=== PATIENT | male | born 1940 | race Caucasian/White ===

== ENCOUNTER 2017-07-04 06:52 | Day surgery (SDC) | payer MEDICARE, BC ==
[2017-06-30 15:56] VITALS: BMI 25.4
[~2017-07-04 06:52] MED LIST: LACTATED RINGERS 1,000 ML IV SCH
[2017-07-04] MEDS ORDERED: LACTATED RINGERS 1,000 ML IV ONE (07:04)
[2017-07-04 07:26] VITALS: RESP 16; TEMP 98.2
[2017-07-04 07:46] LABS: Glucose,Whole Blood 151 mg/dL (75-99)
[2017-07-04] MEDS ORDERED: PROPOFOL 10 MG/ML 20 ML VIAL IV ONE (07:54)
--- NOTE | 2017-07-04 07:56 | P.GSHP ---
History of Present Illness H&P Date: 07/04/17 Chief Complaint: Screening colonoscopy This is a 76-year-old male who presents today for colonoscopy. He denies any significant GI plaints. His last colonoscopy was approximately 12 years ago.. Past Medical History Past Medical History: Coronary Artery Disease (CAD), CVA/TIA, Hyperlipidemia, Hypertension Additional Past Medical History / Comment(s): TIA 2014. HYPOGLYCEMIC. TRACE OF BLOOD ON STOOL SAMPLE RECENTLY. History of Any Multi-Drug Resistant Organisms: None Reported Past Surgical History: Coronary Bypass/CABG, Tonsillectomy Additional Past Surgical History / Comment(s): QUAD CABG 2002. COLONOSCOPY. Past Anesthesia/Blood Transfusion Reactions: No Reported Reaction Smoking Status: Never smoker - Past Family History Sister(s) Family Medical History: Cancer Additional Family Medical History / Comment(s): LUNG, BONE CA Medications and Allergies Home Medications Medication Instructions Recorded Confirmed Type Aspirin [Adult Low Dose Aspirin EC] 81 mg PO DAILY 06/30/17 06/30/17 History Atorvastatin [Lipitor] 10 mg PO 1700 06/30/17 07/04/17 History Cholecalciferol (Vitamin D3) 2,000 unit PO DAILY 06/30/17 07/04/17 History [Vitamin D3] Cyanocobalamin (Vitamin B-12) 2,000 mcg PO DAILY 06/30/17 07/04/17 History [Vitamin B-12] Metoprolol Tartrate [Lopressor] 25 mg PO 1700 06/30/17 07/04/17 History Allergies Allergy/AdvReac Type Severity Reaction Status Date / Time Penicillins Allergy Unknown Verified 07/04/17 07:08 Surgical - Exam Vital Signs Temp Pulse Resp BP Pulse Ox 98.2 F 57 L 16 161/86 95 07/04/17 07:25 07/04/17 07:25 07/04/17 07:25 07/04/17 07:25 07/04/17 07:25 - General well developed, no distress - Eyes PERRL - ENT normal pinna - Neck no masses - Respiratory normal expansion - Cardiovascular Rhythm: regular - Abdomen Abdomen: soft, non tender Results - Labs Abnormal Lab Results - Last 24 Hours (Table) 07/04/17 Range/Units 07:41 POC Glucose (mg/dL) 151 H (75-99) mg/dL Assessment and Plan Plan: We'll perform screening colonoscopy.
--- NOTE | 2017-07-04 08:18 | P.OP ---
Date of Procedure: 07/04/17 Preoperative Diagnosis: Screening colonoscopy Postoperative Diagnosis: Diverticulosis Procedure(s) Performed: Colonoscopy Anesthesia: MAC Surgeon: Jason Walker Pathology: none sent Condition: stable Disposition: PACU Description of Procedure: The patient's placed on the endoscopy table in the lateral position. He received IV sedation. Digital rectal exam was performed which revealed no abnormalities. The flexible colonoscope was then placed through the anus and passed throughout the entire colon. The ileocecal valve was visualized. Cecum , ascending and transverse colon appeared normal. Scope summer back in the descending; there appeared to be mild diverticulosis. Scope was then brought back the rectum this appeared normal. Scope was withdrawn for patient.
[2017-07-04 08:57] VITALS: BP 173/60; PULSE 48
== END 2017-07-04 09:08 | disposition home or self-care (01) ==
LOC: ORWHC2ENDO 06:52
PROVIDERS: ATTEND Surgery
DX: Z12.11 Encounter for screening for malignant neoplasm of colon (principal); K57.30 Diverticulosis of large intestine without perforation or abscess without bleeding; I25.10 Atherosclerotic heart disease of native coronary artery without angina pectoris; I10 Essential (primary) hypertension; E78.5 Hyperlipidemia, unspecified; Z88.0 Allergy status to penicillin; Z79.82 Long term (current) use of aspirin; Z79.899 Other long term (current) drug therapy; Z86.73 Personal history of transient ischemic attack (TIA), and cerebral infarction without residual deficits; Z80.1 Family history of malignant neoplasm of trachea, bronchus and lung; Z80.8 Family history of malignant neoplasm of other organs or systems; Z95.1 Presence of aortocoronary bypass graft
CPT/HCPCS: J2704; G0121

== ENCOUNTER → 2017-09-19 | Day surgery (SDC) | payer MEDICARE, BC ==
[2017-09-15 14:55] VITALS: BMI 24.4
[~2017-09-19] MED LIST changes: +IV FLUID CONTINUATION 1,000 ML IV ONE; +PROPOFOL 10 MG/ML 20 ML VIAL IV ONE
[2017-09-19 12:01] LABS: Glucose,Whole Blood 118 mg/dL (75-99)
[2017-09-19 12:05] VITALS: TEMP 97.1
--- NOTE | 2017-09-19 12:52 | P.PCN ---
Date of Procedure: 09/19/17 Procedure(s) Performed: Procedure: Esophagogastroduodenoscopy and biopsy. Preoperative diagnosis: Iron deficiency anemia and Hemoccult-positive stools. Postoperative diagnosis: 1. Oconnor's esophagus and hiatal hernia with no obvious esophagitis. 2. Antral gastritis. 3. Multiple biopsies obtained from the duodenum, antrum, esophagus both proximal and distal to the GE junction. Preparation: HalfLytely prep. Sedation: Was provided by anesthesia. Brief clinical history: The patient is a 76-year-old male who was evaluated in the office regarding anemia and Hemoccult-positive stools. He had colonoscopy in July that showed diverticulosis. No overt bleeding or specific upper GI complaints. Procedure: With the patient on his left lateral decubitus position and after informed consent and adequate sedation, I passed the Olympus-GIF 160 video upper endoscope through the cricopharyngeus down the esophagus. The ngozi-GE junction was around 31 cm from the incisors and was irregular. The tubular esophagus continued for another 5 cm defining a segment of Oconnor's esophagus. The endoscope was then passed through a moderately sized hiatal hernia into the rest of the stomach which was insufflated with air and inspected in detail including the retroflex view in the cardia. There was mottling and erythema and some fading erosions in the antrum consistent with antral gastritis but no ulcers or bleeding. Pyloric channel, duodenal bulb, post bulbar area and descending duodenum appeared within normal limits. I obtained multiple biopsies from the duodenum, antrum and esophagus both proximal and distal to the GE junction before the endoscope was withdrawn. The patient tolerated the procedure well. Plan: Will await pathology results. Further plans can be made based on his course and biopsy results. We will keep you updated on his progress.
[2017-09-19 13:07] VITALS: BP 179/79; PULSE 56; RESP 18
== END | disposition home or self-care (01) ==
LOC: ORWHC2ENDO 10:12
DX: K22.70 Barrett's esophagus without dysplasia (principal); K29.50 Unspecified chronic gastritis without bleeding; K20.9 Esophagitis, unspecified; K44.9 Diaphragmatic hernia without obstruction or gangrene; D50.9 Iron deficiency anemia, unspecified; I10 Essential (primary) hypertension; E78.5 Hyperlipidemia, unspecified; I25.10 Atherosclerotic heart disease of native coronary artery without angina pectoris; Z88.0 Allergy status to penicillin; Z79.82 Long term (current) use of aspirin; Z79.899 Other long term (current) drug therapy; Z86.73 Personal history of transient ischemic attack (TIA), and cerebral infarction without residual deficits; Z95.1 Presence of aortocoronary bypass graft
CPT/HCPCS: 43239; J2704; 88305; 88342

== ENCOUNTER 2018-06-12 15:51 | Inpatient (IN) | payer MEDICARE, BC ==
[2018-06-12] MEDS ORDERED: SODIUM CHLORIDE 0.9% 500 ML IV STA (15:54)
--- NOTE | 2018-06-12 15:59 | ED ---
General Adult HPI - General Source: RN notes reviewed <Vicente Glover - Last Filed: 06/12/18 17:03> <Binu Sanabria - Last Filed: 06/12/18 18:48> - General Stated complaint: stroke Time Seen by Provider: 06/12/18 15:51 - History of Present Illness Initial comments: This is a 77-year-old male who went out to get the mail between 11 to 11:30. Patient was found down about half an hour prior to arrival. Patient was unresponsive initially and definitely have some left-sided facial droop and left -sided weakness according to the neighbor. EMS verified his weakness but thought he was more responsive to them that he was to the neighbor. Patient is able to speak intelligibly is. Patient denies any chest pain or palpitations patient denies any difficulty breathing. Patient denies a headache. There are no signs of trauma per EMS. Patient denies any fever or chills. (Vicente Glover) - Related Data Home Medications Medication Instructions Recorded Confirmed Aspirin [Adult Low Dose Aspirin EC] 81 mg PO DAILY 06/30/17 06/12/18 Atorvastatin [Lipitor] 10 mg PO DAILY 06/30/17 06/12/18 Cholecalciferol (Vitamin D3) 2,000 unit PO DAILY 06/30/17 06/12/18 [Vitamin D3] Cyanocobalamin (Vitamin B-12) 2,000 mcg PO DAILY 06/30/17 06/12/18 [Vitamin B-12] Metoprolol Tartrate [Lopressor] 25 mg PO DAILY 06/12/18 06/12/18 Omeprazole [PriLOSEC] 20 mg PO AC-BID 06/12/18 06/12/18 Allergies Allergy/AdvReac Type Severity Reaction Status Date / Time Penicillins Allergy Unknown Verified 06/12/18 16:29 Review of Systems ROS Other: All systems not noted in ROS Statement are negative. <Vicente Glover - Last Filed: 06/12/18 17:03> ROS Other: All systems not noted in ROS Statement are negative. <Binu Sanabria - Last Filed: 06/12/18 18:48> ROS Statement: Those systems with pertinent positive or pertinent negative responses have been documented in the HPI. Past Medical History Past Medical History: Coronary Artery Disease (CAD), CVA/TIA, Hyperlipidemia, Hypertension Additional Past Medical History / Comment(s): TIA 2014. HYPOGLYCEMIC. TRACE OF BLOOD IN STOOL RECENTLY History of Any Multi-Drug Resistant Organisms: None Reported Past Surgical History: Coronary Bypass/CABG, Tonsillectomy Additional Past Surgical History / Comment(s): QUAD CABG 2002. COLONOSCOPY in 2016-wnl per pt. Past Anesthesia/Blood Transfusion Reactions: No Reported Reaction Smoking Status: Never smoker - Past Family History Sister(s) Family Medical History: Cancer Additional Family Medical History / Comment(s): LUNG, BONE CA <Vicente Glover - Last Filed: 06/12/18 17:03> General Exam <Vicente Glover - Last Filed: 06/12/18 17:03> <Binu Sanabria - Last Filed: 06/12/18 18:48> - General Exam Comments Initial Comments: GENERAL: Patient is well-developed and well-nourished. Patient is nontoxic and well- hydrated and is in moderate distress. ENT: Neck is soft and supple. No significant lymphadenopathy is noted. Oropharynx is clear. Moist mucous membranes. EYES: The sclera were anicteric and conjunctiva were pink and moist. Eyelids were unremarkable. PULMONARY: Unlabored respirations. Good breath sounds bilaterally. No audible rales rhonchi or wheezing was noted. CARDIOVASCULAR: There is a regular rate and rhythm without any murmurs gallops or rubs. ABDOMEN: Soft and nontender with normal bowel sounds. No palpable organomegaly was noted. There is no palpable pulsatile mass. SKIN: Skin is clear with no lesions or rashes and otherwise unremarkable. NEUROLOGIC: Patient is alert and oriented x3. Patient's left I does not fully move laterally. Patient has left-sided facial droop left arm weakness and left leg weakness. I'm unable to test cerebellar function because he cannot lift his arm or leg to do so MUSCULOSKELETAL: Normal extremities with adequate strength and full range of motion. No lower extremity swelling or edema. No calf tenderness. LYMPHATICS: No significant lymphadenopathy is noted PSYCHIATRIC: Difficult to assess at this time (Vicente Glover) Course <Vicente Glover - Last Filed: 06/12/18 17:03> <Binu Sanabria - Last Filed: 06/12/18 18:48> Vital Signs 06/12/18 06/12/18 06/12/18 16:00 16:15 16:29 Temperature 97.3 F L Pulse Rate 63 48 L 58 L Respiratory 18 18 18 Rate Blood Pressure 120/95 177/76 207/92 O2 Sat by Pulse 98 100 97 Oximetry 06/12/18 06/12/18 06/12/18 16:45 17:00 17:30 Temperature Pulse Rate 64 60 64 Respiratory 18 18 18 Rate Blood Pressure 199/88 199/88 195/91 O2 Sat by Pulse 98 100 100 Oximetry 06/12/18 06/12/18 17:55 18:43 Temperature Pulse Rate 50 L 58 L Respiratory 18 18 Rate Blood Pressure 189/84 189/86 O2 Sat by Pulse 97 100 Oximetry - Reevaluation(s) Reevaluation #1: 06/12/18 18:46 I did discuss findings with the patient and family members patient be admitted for inpatient evaluation at this facility. The patient has been evaluated by the interventional neurologist, Dr. Ann. The patient is not a candidate for intervention at this time (Binu Sanabria) Medical Decision Making - Lab Data Result diagrams: 06/12/18 15:58 06/12/18 15:58 <Vicente Glover - Last Filed: 06/12/18 17:03> - Lab Data Result diagrams: 06/12/18 15:58 06/12/18 15:58 <Binu Sanabria - Last Filed: 06/12/18 18:48> - Medical Decision Making EKG shows sinus bradycardia with occasional PAC at 50 bpm MS interval 156 dresses 88 QT interval 472 QTC is 463. Patient's EKG shows no ST segment elevation or depression or T wave abnormalities are noted. Dr. Sanabria be taking over the care of this patient at 5 PM (Vicente Glover) - Lab Data Lab Results 06/12/18 06/12/18 06/12/18 Range/Units 15:54 15:58 15:58 WBC 5.7 (3.8-10.6) k/uL RBC 3.63 L (4.30-5.90) m/uL Hgb 11.2 L (13.0-17.5) gm/dL Hct 34.3 L (39.0-53.0) % MCV 94.4 (80.0-100.0) fL MCH 31.0 (25.0-35.0) pg MCHC 32.8 (31.0-37.0) g/dL RDW 13.5 (11.5-15.5) % Plt Count 130 L (150-450) k/uL Neutrophils % 78 % Lymphocytes % 15 % Monocytes % 4 % Eosinophils % 1 % Basophils % 1 % Neutrophils # 4.4 (1.3-7.7) k/uL Lymphocytes # 0.8 L (1.0-4.8) k/uL Monocytes # 0.2 (0-1.0) k/uL Eosinophils # 0.1 (0-0.7) k/uL Basophils # 0.0 (0-0.2) k/uL PT (9.0-12.0) sec INR (<1.2) APTT (22.0-30.0) sec Sodium 141 (137-145) mmol/L Potassium 4.9 (3.5-5.1) mmol/L Chloride 107 (98-107) mmol/L Carbon Dioxide 24 (22-30) mmol/L Anion Gap 10 mmol/L BUN 27 H (9-20) mg/dL Creatinine 1.47 H (0.66-1.25) mg/dL Est GFR (CKD-EPI)AfAm 53 (>60 ml/min/1.73 sqM) Est GFR (CKD-EPI)NonAf 45 (>60 ml/min/1.73 sqM) Glucose 160 H (74-99) mg/dL POC Glucose (mg/dL) 162 H (75-99) mg/dL POC Glu Drywall Taper Ninfa Wesley Calcium 8.9 (8.4-10.2) mg/dL Total Bilirubin 0.6 (0.2-1.3) mg/dL AST 42 (17-59) U/L ALT 35 (21-72) U/L Alkaline Phosphatase 137 H (38-126) U/L Total Creatine Kinase (55-170) U/L CK-MB (CK-2) (0.0-2.4) ng/mL CK-MB (CK-2) Rel Index Troponin I (0.000-0.034) ng/mL Total Protein 6.8 (6.3-8.2) g/dL Albumin 4.0 (3.5-5.0) g/dL 06/12/18 06/12/18 Range/Units 15:58 15:58 WBC (3.8-10.6) k/uL RBC (4.30-5.90) m/uL Hgb (13.0-17.5) gm/dL Hct (39.0-53.0) % MCV (80.0-100.0) fL MCH (25.0-35.0) pg MCHC (31.0-37.0) g/dL RDW (11.5-15.5) % Plt Count (150-450) k/uL Neutrophils % % Lymphocytes % % Monocytes % % Eosinophils % % Basophils % % Neutrophils # (1.3-7.7) k/uL Lymphocytes # (1.0-4.8) k/uL Monocytes # (0-1.0) k/uL Eosinophils # (0-0.7) k/uL Basophils # (0-0.2) k/uL PT 10.1 (9.0-12.0) sec INR 1.0 (<1.2) APTT 18.6 L (22.0-30.0) sec Sodium (137-145) mmol/L Potassium (3.5-5.1) mmol/L Chloride (98-107) mmol/L Carbon Dioxide (22-30) mmol/L Anion Gap mmol/L BUN (9-20) mg/dL Creatinine (0.66-1.25) mg/dL Est GFR (CKD-EPI)AfAm (>60 ml/min/1.73 sqM) Est GFR (CKD-EPI)NonAf (>60 ml/min/1.73 sqM) Glucose (74-99) mg/dL POC Glucose (mg/dL) (75-99) mg/dL POC Glu Drywall Taper ID Calcium (8.4-10.2) mg/dL Total Bilirubin (0.2-1.3) mg/dL AST (17-59) U/L ALT (21-72) U/L Alkaline Phosphatase (38-126) U/L Total Creatine Kinase 428 H (55-170) U/L CK-MB (CK-2) 4.7 H (0.0-2.4) ng/mL CK-MB (CK-2) Rel Index 1.1 Troponin I <0.012 (0.000-0.034) ng/mL Total Protein (6.3-8.2) g/dL Albumin (3.5-5.0) g/dL Critical Care Time <Vicente Glover - Last Filed: 06/12/18 17:03> Critical Care Time: Yes <Binu Sanabria - Last Filed: 06/12/18 18:48> Critical Care Time: 31 minutes of critical care time which includes monitoring the patient after signout reevaluation. Discussed with patient and family members. Interventional neurology consultation. Review of old charting and labs. Discussion with the admitting physician admission orders and documentation of the above (Binu Sanabria) Disposition <Vicente Glover - Last Filed: 06/12/18 17:03> <Binu Sanabria - Last Filed: 06/12/18 18:48> Clinical Impression: Cerebrovascular accident Disposition: ADMITTED IP TO THIS [facility] Condition: Serious Referrals: Ata Lance MD [Primary Care Provider] - 1-2 days
[2018-06-12 16:00] LABS: Glucose,Whole Blood 162 mg/dL (75-99)
[2018-06-12 16:08] LABS: Basophils % (A) 1 %; Eosinophils # (A) 0.1 k/uL (0-0.7); Eosinophils % (A) 1 %; HCT 34.3 % (39.0-53.0); HGB 11.2 gm/dL (13.0-17.5); Lymphocytes # (A) 0.8 k/uL (1.0-4.8); Lymphocytes % (A) 15 %; MCHC 32.8 g/dL (31.0-37.0); MCV 94.4 fL (80.0-100.0); Mean Platelet Volume 7.8; Monocytes # (A) 0.2 k/uL (0-1.0); Monocytes % (A) 4 %; Neutrophils # (A) 4.4 k/uL (1.3-7.7); Neutrophils % (A) 78 %; Platelet Count 130 k/uL (150-450); RBC 3.63 m/uL (4.30-5.90); RDW 13.5 % (11.5-15.5); WBC 5.7 k/uL (3.8-10.6)
[2018-06-12 16:16] LABS: Prothrombin Time 10.1 sec (9.0-12.0)
[2018-06-12 16:17] LABS: Calcium 8.9 mg/dL (8.4-10.2); Potassium 4.9 mmol/L (3.5-5.1); Total Bilirubin 0.6 mg/dL (0.2-1.3); Total Protein 6.8 g/dL (6.3-8.2)
[2018-06-12 16:28] LABS: Creatine Kinase 428 U/L (55-170); Partial Thromboplastin Time 18.6 sec (22.0-30.0)
--- NOTE | 2018-06-12 16:39 | CT ---
EXAMINATION TYPE: CT brain wo con for TPA DATE OF EXAM: 06/12/2018 COMPARISON: 11/11/2013 HISTORY: CODE STROKE, VISION CHANGES CT DLP: 1203.44 mGycm Automated exposure control for dose reduction was used. FINDINGS: There is marked limitation exam due to motion. There is an area of low attenuation left frontal lobe age-indeterminate. Mild generalized degenerative change seen. Periventricular low attenuation is nonspecific. Due to mot ion artifact I could not exclude subtle hemorrhage. No obvious sizable intraparenchymal hemorrhage is identified. Intracranial atherosclerotic changes are seen. Due to the amount of motion artifact assessment for ac caitie ischemia is limited. Calvarium grossly intact. Case discussed with emergency room physician juvenal ryder limitation of the exam. IMPRESSION: THERE IS A DEGENERATIVE AND NONSPECIFIC WHITE MATTER CHANGES. AREA OF LOW ATTENUATION LEFT FRONTAL LO BE IS MOST AGE-INDETERMINATE, HOWEVER, WOULD FAVOR REMOTE ISCHEMIA. ASSESSMENT FOR ACUTE HEMORRHAGE I S LIMITED DUE TO MOTION ARTIFACT. NO SIZABLE OBVIOUS INTRAPARENCHYMAL HEMORRHAGE. RESULTS DISCUSSED W ITH ER PHYSICIAN INCLUDING LIMITATION OF EXAM.
[2018-06-12 16:41] LABS: Creatine Kinase MB 4.7 ng/mL (0.0-2.4); Troponin I <0.012 ng/mL (0.000-0.034)
--- NOTE | 2018-06-12 16:58 | CT ---
EXAMINATION TYPE: CT angio head neck DATE OF EXAM: 06/12/2018 HISTORY: CODE STROKE, VISION CHANGES COMPARISON: CT DLP: 340.56 mGycm. Automated Exposure Control for Dose Reduction was Utilized. TECHNIQUE: CTA scan of the neck is performed with IV Contrast, patient injected with 65 mL of Isovue 370, axial images are obtained, coronal and sagittal reformatted images are reviewed. Three-D recons tructed images are created on an independent workstation and reviewed. FINDINGS: There is normal branching pattern of the great vessels on the aortic arch. There is bilateral arteria l flow in the vertebral arteries which are fairly symmetric. There is arterial flow in the common int ernal and external carotid arteries bilaterally. There is minimal plaque at the carotid artery bifurc ations and less than 10% luminal narrowing. There is no evidence of carotid or vertebral artery aneur ysm or dissection. There is arterial flow in the anterior middle and posterior cerebral arteries. There is arterial flow in the vertebral basilar artery system. There is normal contrast opacification of the venous sinuses . I see no evidence of intracranial aneurysm or neovascularity. There is no evidence of intracranial arterial stenosis. There is atheromatous change in the aortic arch. IMPRESSION: No evidence of hemodynamically significant stenosis. No evidence of arterial aneurysm or dissection. Moderate spondylotic changes are noted in the cervical spine and multilevel bony spinal s tenosis.
--- NOTE | 2018-06-12 18:05 | XR ---
EXAMINATION TYPE: XR chest 2V DATE OF EXAM: 06/12/2018 COMPARISON: November 11, 2013 HISTORY: Cough TECHNIQUE: Frontal and lateral views of the chest are obtained. FINDINGS: Heart and mediastinum are normal. Lungs are clear. Diaphragm is normal. Thoracic aorta garcia ws mild atheromatous change. There are chest leads. There are sternal wires. IMPRESSION: No active cardiopulmonary disease. No change.
[2018-06-12] MEDS ORDERED: ASPIRIN 325 MG TAB PO STA (18:55)
[2018-06-12] MEDS ORDERED: ASPIRIN 300 MG SUPP RECTAL STA (19:28)
[2018-06-12] MEDS: SODIUM CHLORIDE 0.9% 1,000 ML IV SCH (19:39)
[2018-06-12] MEDS: ATORVASTATIN 80 MG TAB PO SCH (21:53)
[2018-06-13] MEDS: SODIUM CHLORIDE 0.9% 1,000 ML IV SCH ×3 (00:42→23:13)
[2018-06-13] MEDS ORDERED: ACETAMINOPHEN IV (For NPO) 1,000 MG in EMPTY BAG 1 BAG IVPB PRN (05:19)
[2018-06-13 06:32] LABS: Cholesterol 129 mg/dL (<200); HDL Cholesterol 50 mg/dL (40-60); LDL Cholesterol,Calculated 67 mg/dL (0-99); Triglycerides 59 mg/dL (<150)
--- NOTE | 2018-06-13 10:42 | XR ---
EXAMINATION TYPE: XR chest 1V portable DATE OF EXAM: 06/13/2018 COMPARISON: Prior chest 06/12/2018 HISTORY: Shortness of breath TECHNIQUE: Single frontal view of the chest is obtained. FINDINGS: Patient is post median sternotomy and there are overlying cardiac leads. Cardiac mediastin al silhouette, pulmonary vascularity and manav are stable. No evident pneumothorax or pleural effusion . Question some patchy density at the left lower lobe. There is some apical pleural scarring greater on the right. IMPRESSION: Difficult to exclude left lower lobe airspace disease, follow-up PA and lateral chest x- ray may be of benefit..
[2018-06-13] MEDS ORDERED: ASPIRIN 325 MG TAB PO SCH (12:00)
[2018-06-13] MEDS: IPRATROPIUM-ALBUTEROL 3 ML NEB INHALATION PRN ×2 (15:24→20:26)
[2018-06-13] MEDS: CLOPIDOGREL 75 MG TAB PO SCH (16:14)
[2018-06-13] MEDS: ATORVASTATIN 80 MG TAB PO SCH (17:02)
[2018-06-13] MEDS: ceFAZolin 1,000 MG in DEXTROSE/WATER 1 50ML.BAG IVPB SCH (18:01)
--- NOTE | 2018-06-13 18:45 | HP ---
HISTORY AND PHYSICAL CHIEF COMPLAINT: CVA with left-sided weakness. HISTORY OF PRESENT ILLNESS: This is another admission for this 77-year-old white male with a history of coronary artery disease. He has been doing well and living independently without any difficulty. He was brought into the emergency room with sudden onset of lethargy, confusion and left-sided weakness. REVIEW OF SYSTEMS: Not obtainable. At this time he is not arousable. Past medical history, family history, and personal and social histories reveal that he is ALLERGIC TO PENICILLIN. He has been on: 1. Prilosec. 2. Aspirin 81 mg. 3. Lopressor 50 mg 1/2 tablet a day. 4. Lipitor 10 mg. The remainder of his history is unremarkable or unobtainable. PHYSICAL EXAMINATION: Blood pressure is 158/90 with a pulse of 88, respirations of 35. He is afebrile. In general he appeared to be slender and extremely lethargic. Skin color was normal. Head, ears, eyes, nose, mouth and throat were unremarkable. Gaze seemed conjugate. Carotids were normal. Chest was clear. Cardiac exam demonstrated sinus rhythm and there was no murmur or extra sounds. The abdomen was flat, soft, nontender. Extremities were normal. Neurologically he was semi-comatose. He is admitted to the hospital with the diagnoses: 1. Right-sided cerebrovascular accident with left hemiparesis and lethargy. 2. History of coronary artery disease. 3. ASCVD. PLAN: 1. Bed rest. 2. IV fluids. 3. Follow neurologically. 4. Physical therapy and occupational therapy. 5. Speech therapy. 6. Carotid duplex imaging. 7. Work on a discharge plan. MMODL / IJN: [id number] /
[2018-06-13] MEDS ORDERED: SODIUM CHLORIDE 0.9% 1,000 ML IV SCH (19:00)
--- NOTE | 2018-06-13 19:39 | P.CNNES ---
History of Present Illness Consult date: 06/13/18 Reason for Consult: Patient admitted with acute stroke and left sided weakness History of Present Illness: This patient is a 77-year-old right-handed white male apparently yesterday had gone out to get his mail at about 11 AM. Patient states that he went out as usual after having had breakfast in the morning. He lives alone in his own home. He went out to the mailbox and apparently tripped on his feet and fell to the ground. He could not get himself up. A gas meeter man was nearby and came after about an hour or 2 to find him collapsed on the ground. EMS was called to the scene. Patient was subtotally brought into the emergency room at [facility] yesterday evening for further evaluation. He was seen in the ER by Dr. Glover. He was evaluated for possibility of code stroke and his NIH stroke scale was 10.0. The stroke interventionalists was contacted via the stroke robot. Dr. Villalpando reviewed all of his studies including his neuro imaging which was the computed tomography scan of the brain. CAT scan of the brain performed yesterday revealed degenerative changes with an old left frontal lobe infarct. Age is indeterminate. There was no evidence of intraparenchymal hemorrhage or acute stroke. He also had a CTA angiogram of the head and neck which was reported negative. The patient was recommended admission to the hospital for a complete stroke evaluation. He has no previous history of stroke according to the patient and his daughter. He has been relatively active at home despite his age. The patient has been taking one baby aspirin on a regular basis. He was diagnosed as having a TIA in 2014. He also underwent coronary artery bypass grafting in the past. Once again the interventional neurologist felt the patient was not a candidate for TPA after his initial evaluation in the ER. He does have evidence of a dense left-sided hemiplegia which will likely correspond to an acute right hemispheric stroke. We have recommended a complete stroke evaluation for the patient. His overall prognosis at this time remains guarded. This patient's overall clinical history and an neurological exam findings were discussed at length with the patient's daughter who is at bedside. She was updated on her father's overall condition otherwise. She is aware of his very guarded condition given the extent of his stroke. We will continue close neurological follow-up with the patient during this admission. His overall prognosis at this time remains guarded. Review of Systems Constitutional: Denies chills, Denies fever Eyes: denies blurred vision, denies pain Ears, nose, mouth and throat: Denies headache, Denies sore throat Cardiovascular: Denies chest pain, Denies shortness of breath Respiratory: Denies cough Gastrointestinal: Denies abdominal pain, Denies diarrhea, Denies nausea, Denies vomiting Musculoskeletal: Denies myalgias Integumentary: Denies pruritus, Denies rash Neurological: Reports balance difficulties, Reports change in mentation, Reports change in speech, Reports confusion, Reports memory loss, Reports paresthesias, Denies numbness, Denies weakness Psychiatric: Denies anxiety, Denies depression Endocrine: Denies fatigue, Denies weight change Past Medical History Past Medical History: Coronary Artery Disease (CAD), CVA/TIA, GERD/Reflux, Hyperlipidemia, Hypertension Additional Past Medical History / Comment(s): TIA 2014. HYPOGLYCEMIC, History of Any Multi-Drug Resistant Organisms: None Reported Past Surgical History: Coronary Bypass/CABG, Tonsillectomy Additional Past Surgical History / Comment(s): QUAD CABG 2002. COLONOSCOPY in 2016-wnl per pt. egd see report Past Anesthesia/Blood Transfusion Reactions: No Reported Reaction Smoking Status: Never smoker - Past Family History Sister(s) Family Medical History: Cancer Additional Family Medical History / Comment(s): LUNG, BONE CA Medications and Allergies Home Medications Medication Instructions Recorded Confirmed Type Aspirin [Adult Low Dose Aspirin EC] 81 mg PO DAILY 06/30/17 06/12/18 History Atorvastatin [Lipitor] 10 mg PO DAILY 06/30/17 06/12/18 History Cholecalciferol (Vitamin D3) 2,000 unit PO DAILY 06/30/17 06/12/18 History [Vitamin D3] Cyanocobalamin (Vitamin B-12) 2,000 mcg PO DAILY 06/30/17 06/12/18 History [Vitamin B-12] Metoprolol Tartrate [Lopressor] 25 mg PO DAILY 06/12/18 06/12/18 History Omeprazole [PriLOSEC] 20 mg PO AC-BID 06/12/18 06/12/18 History Allergies Allergy/AdvReac Type Severity Reaction Status Date / Time Penicillins Allergy Unknown Verified 06/12/18 16:29 Physical Examination - Vital Signs Vital Signs: Vital Signs Temp Pulse Pulse Resp BP BP Pulse Ox 06/13/18 15:58 75 18 196/87 95 06/13/18 12:00 66 18 179/79 95 06/13/18 08:00 97.9 F 74 18 167/78 91 L 06/13/18 05:48 101.9 F H 91 18 179/76 92 L 06/13/18 04:00 100.5 F H 79 18 185/77 92 L 06/13/18 03:48 97.7 F 64 18 182/83 96 06/13/18 01:15 98.4 F 60 18 163/71 97 06/12/18 23:56 98.8 F 71 18 180/83 97 06/12/18 22:17 99 F 70 16 184/85 98 06/12/18 21:39 70 18 144/85 98 06/12/18 20:37 50 L 18 168/72 98 06/12/18 19:50 98.0 F 53 L 18 170/66 100 Intake and Output 06/13/18 06/13/18 06/13/18 06:59 14:59 22:59 Intake Total 500 500 Balance 500 500 Intake: Intake, IV Titration 500 500 Amount Sodium Chloride 0.9% 1, 500 500 000 ml @ 100 mls/hr IV . Q10H [facility] Rx#:[id number] Other: Voiding Method Diaper Diaper # Voids 1 Weight 75.5 kg - Constitutional General appearance: average body habitus, cooperative - EENT EENT: PERRL, mucous membranes moist - Respiratory Respiratory: lungs clear, normal breath sounds - Cardiovascular Cardiovascular: regular rate, normal S1, normal S2 Extremities: no peripheral edema bilaterally - Gastrointestinal Gastrointestinal: normoactive bowel sounds - Integumentary Integumentary: normal - Neurologic Cranial nerve examination: PERRL, EOMI, VFF, V1/V2/V3 grossly intact, tongue midline, intact gag reflex, intact corneal reflex, facial droop (Patient has left-sided upper motor neuron facial droop.), normal palatal elevation Speech examination: intact Sensorimotor examination: intact Motor examination - right side: 4/5: biceps, triceps, wrist flexion, wrist extension, 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, hip flexors, knee extensors, dorsiflexion, toe extension (EHL) , plantarflexion Motor examination - left side: 2/5: biceps, triceps, wrist flexion, wrist extension, 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, hip flexors, knee extensors, dorsiflexion, toe extension (EHL) , plantarflexion Detailed sensory examination: intact Reflex and gait examination: intact Reflexes: 2+: ankle, bicep, 3+: knee, tricep - Musculoskeletal Musculoskeletal: no pain - Psychiatric Psychiatric: mood/affect appropriate, cooperative Results - Laboratory Findings CBC and BMP: 06/12/18 15:58 06/12/18 15:58 Abnormal Lab Findings: Abnormal Labs 06/12/18 06/12/18 06/12/18 15:54 15:58 15:58 RBC 3.63 L Hgb 11.2 L Hct 34.3 L Plt Count 130 L Lymphocytes # 0.8 L APTT BUN 27 H Creatinine 1.47 H Glucose 160 H POC Glucose (mg/dL) 162 H Alkaline Phosphatase 137 H Total Creatine Kinase CK-MB (CK-2) 06/12/18 06/12/18 15:58 15:58 RBC Hgb Hct Plt Count Lymphocytes # APTT 18.6 L BUN Creatinine Glucose POC Glucose (mg/dL) Alkaline Phosphatase Total Creatine Kinase 428 H CK-MB (CK-2) 4.7 H Assessment and Plan (1) Acute right MCA stroke Current Visit: Yes Status: Acute Code(s): I63.511 - CEREB INFRC D/T UNSP OCCLS OR STENOS OF RIGHT MID CEREB ART SNOMED Code(s): 115792952 (2) Coronary artery disease involving coronary bypass graft Current Visit: Yes Status: Acute Code(s): I25.810 - ATHEROSCLEROSIS OF CABG W/O ANGINA PECTORIS SNOMED Code(s): 045358677 (3) Hyperlipidemia Current Visit: Yes Status: Acute Code(s): E78.5 - HYPERLIPIDEMIA, UNSPECIFIED SNOMED Code(s): 14363521 (4) Dysphagia Current Visit: Yes Status: Acute Code(s): R13.10 - DYSPHAGIA, UNSPECIFIED SNOMED Code(s): 92738827 (5) Hypertension Current Visit: Yes Status: Acute Code(s): I10 - ESSENTIAL (PRIMARY) HYPERTENSION SNOMED Code(s): 86050280 Plan: This patient is a 77-year-old gentleman who apparently had a fall his home yesterday morning when he went out to get his newspaper at about 11 AM. Patient tripped on himself and fell to the ground and could not get himself up. He was on the ground for at least 1-2 hours before a [employer] employee was able to find him and called for help. He was transported by EMS to the emergency room where he was seen in the ER at [facility] by Dr. Glover. He was sent for a computed tomography scan of the brain which revealed only chronic changes. No evidence of acute stroke. Patient was not a candidate for TPA as determined by the interventional neurologist by the stroke robot on admission yesterday. He continues to show dense left-sided hemiplegia secondary to a stroke. He also has evidence of possible lumbar decompressive disease and we have recommended an MRI of the lumbar spine for further evaluation as well. Patient is noted to have some spasms on his left side which may be residual from his stroke. We will continue complete stroke evaluation for this patient. Case was discussed today at length with the patient's daughter at bedside. All of her questions were answered. She is aware of his guarded condition. Neurology is now been consulted for further evaluation and recommendations. His overall prognosis at this time remains very guarded. Time with Patient: Greater than 30
[2018-06-13] MEDS ORDERED: DILTIAZEM DRIP BOLUS FROM BAG 1 MG SOLN IV ONE (20:56)
[2018-06-13] MEDS: DILTIAZEM 50 MG in SODIUM CHLORIDE 0.9% 40 ML IV SCH (21:23)
[2018-06-13 21:24] LABS: Basophils % (A) 0 %; Eosinophils % (A) 0 %; HCT 37.5 % (39.0-53.0); Lymphocytes # (A) 0.4 k/uL (1.0-4.8); Lymphocytes % (A) 6 %; MCH 30.4 pg (25.0-35.0); MCHC 31.9 g/dL (31.0-37.0); MCV 95.4 fL (80.0-100.0); Mean Platelet Volume 7.8; Monocytes # (A) 0.4 k/uL (0-1.0); Monocytes % (A) 5 %; Neutrophils # (A) 5.9 k/uL (1.3-7.7); Neutrophils % (A) 88 %; Platelet Count 131 k/uL (150-450); RBC 3.94 m/uL (4.30-5.90); RDW 13.6 % (11.5-15.5); WBC 6.7 k/uL (3.8-10.6)
[2018-06-13 21:35] LABS: Calcium 8.7 mg/dL (8.4-10.2); Potassium 4.2 mmol/L (3.5-5.1)
[2018-06-13 23:53] LABS: Appearance,Urine Clear (Clear); Bilirubin,Urine Negative (Negative); Blood,Urine Trace (Negative); Color,Urine Yellow; Glucose,Urine (UA) Trace (Negative); Ketones,Urine Negative (Negative); Leukocyte Esterase,Urine Negative (Negative); Mucus,Urine Rare /hpf; Nitrite,Urine Negative (Negative); PH, Urine 5.5 (5.0-8.0); Protein,Urine 1+ (Negative); RBC,Urine 2 /hpf (0-5); Specific Gravity,Urine 1.021 (1.001-1.035); Squamous Epithelial Cell,Urine <1 /hpf (0-4); Urobilinogen,Urine <2.0 mg/dL (<2.0); WBC,Urine 1 /hpf (0-5)
[2018-06-14] MEDS: ceFAZolin 1,000 MG in DEXTROSE/WATER 1 50ML.BAG IVPB SCH (00:50)
[2018-06-14] MEDS: DILTIAZEM 50 MG in SODIUM CHLORIDE 0.9% 40 ML IV SCH ×2 (03:00→20:47)
[2018-06-14 06:42] LABS: Glucose,Whole Blood 173 mg/dL (75-99)
[2018-06-14 06:59] LABS: ABG Base Excess -3.5 mmol/L; ABG HCO3 20 mmol/L (21-25); ABG Oxygen Saturation 89.6 % (94-97); ABG PCO2 26 mmHg (35-45); ABG PH 7.49 (7.35-7.45); ABG TCO2 21 mmol/L (19-24)
[2018-06-14 07:02] LABS: ABG PO2 52 mmHg (83-108)
--- NOTE | 2018-06-14 07:06 | XR ---
EXAMINATION TYPE: XR chest 1V portable DATE OF EXAM: 06/14/2018 COMPARISON: Yesterday HISTORY: Short of breath TECHNIQUE: Single frontal view of the chest is obtained. FINDINGS: There is no heart failure. There is minimal infiltrate in the left lower lobe. The right l hayden is fairly clear. There are sternal wires. Thoracic aorta is atheromatous. There are chest leads. IMPRESSION: Minimal left lower lobe pneumonia is the same or improved compared to yesterday. No hear t failure.
[2018-06-14] MEDS ORDERED: MORPHINE SULFATE 2 MG/ML SYRINGE ONE (08:18)
[2018-06-14] MEDS ORDERED: MORPHINE SULFATE 2 MG/ML SYRINGE IVP ONE (08:19)
[2018-06-14] MEDS: IPRATROPIUM-ALBUTEROL 3 ML NEB INHALATION PRN ×4 (08:24→19:13)
[2018-06-14 08:38] LABS: Glucose,Whole Blood 154 mg/dL (75-99)
--- NOTE | 2018-06-14 08:44 | P.CNPUL ---
History of Present Illness Consult date: 06/14/18 Reason for consult: dyspnea History of present illness: 77-year-old male patient, known history of coronary artery disease with previous bypass surgery in addition to history of hypertension and hyperlipidemia, came into the hospital after he was found to be on the floor by a bystander. The patient apparently in the morning went up and checked on his mailbox and he collapsed on the floor without having to pass out. He was on the floor for probably an hour where he was found by a bystander and the patient was brought into the emergency department. The patient was seen by emergency physicians and the patient was evaluated for a stroke. The NIH score scale was 10. This stroke intervention this was contacted and the patient had a computed tomography scan of the brain, a CT angiogram of the head and neck was done and was negative. 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 The patient has been taking aspirin a regular basis. He has had previous history of TIA back in 2014. He was not found to be a thrombolytic candidate. He got admitted to the floor. Upon initial evaluation by our neurologist, the patient was found to have left-sided weakness and it was obvious that the patient had a evaluation of a right MCA distribution CVA. The patient was moved to the floor. The patient continued to show signs of left-sided hemiplegia. MRI of the brain was recommended Earlier this morning, the patient became short of breath. He was found to be in acute respiratory distress. The emergency team was again activated. The patient was found to be in atrial fibrillation with rapid ventricular response and his artery was in the 120 to 1:30 range. The patient became progressively more hypoxic and short of breath. At 6:00 chest x-ray was done and it showed left basilar infiltration without signs of any heart failure. Nevertheless the patient continued to be profoundly short of breath and tachypneic and his respiratory rate was in the mid 30s going up to the 40 times an hour range. Blood gases was done that showed a pH of 7.48 with a pCO2 of 26 and pO2 of 52. At that time the patient was started on a BiPAP at a pressure of 10/5 cm of water and the patient was brought into the intensive care unit. He is currently on a BiPAP with an FiO2 of 60%. No reported aspiration. He was given a dose of Lasix and he has already produced more than 600 mL of urine output. He still struggling with breathing despite being on a BiPAP. He is pulling more than 1000cc on the BiPAP. He is on no anticoagulants for now. No previous history of DVT or pulmonary embolism. No swelling in lower extremities. Lactic acid level is at 2.6. No fever. Currently the patient on IV Cardizem for rate control at family grams an hour. He is on Review of Systems ROS unobtainable: due to mental status Past Medical History Past Medical History: Coronary Artery Disease (CAD), CVA/TIA, GERD/Reflux, Hyperlipidemia, Hypertension Additional Past Medical History / Comment(s): TIA 2014. HYPOGLYCEMIC, History of Any Multi-Drug Resistant Organisms: None Reported Past Surgical History: Coronary Bypass/CABG, Tonsillectomy Additional Past Surgical History / Comment(s): QUAD CABG 2002. COLONOSCOPY in 2016-wnl per pt. egd see report Past Anesthesia/Blood Transfusion Reactions: No Reported Reaction Smoking Status: Never smoker - Past Family History Sister(s) Family Medical History: Cancer Additional Family Medical History / Comment(s): LUNG, BONE CA Medications and Allergies Home Medications Medication Instructions Recorded Confirmed Type Aspirin [Adult Low Dose Aspirin EC] 81 mg PO DAILY 06/30/17 06/12/18 History Atorvastatin [Lipitor] 10 mg PO DAILY 06/30/17 06/12/18 History Cholecalciferol (Vitamin D3) 2,000 unit PO DAILY 06/30/17 06/12/18 History [Vitamin D3] Cyanocobalamin (Vitamin B-12) 2,000 mcg PO DAILY 06/30/17 06/12/18 History [Vitamin B-12] Metoprolol Tartrate [Lopressor] 25 mg PO DAILY 06/12/18 06/12/18 History Omeprazole [PriLOSEC] 20 mg PO AC-BID 06/12/18 06/12/18 History Allergies Allergy/AdvReac Type Severity Reaction Status Date / Time Penicillins Allergy Unknown Verified 06/12/18 16:29 Physical Exam Vitals: Vital Signs Temp Pulse Pulse Resp BP Pulse Ox 06/14/18 04:00 99.3 F 102 H 24 174/74 94 L 06/14/18 00:00 98.8 F 116 H 24 170/88 94 L 06/13/18 21:37 108 H 28 H 172/74 95 06/13/18 21:27 114 H 166/86 96 06/13/18 20:40 106 H 06/13/18 20:26 108 H 06/13/18 20:11 99 F 80 37 H 169/78 94 L 06/13/18 20:00 106 H 37 H 06/13/18 15:58 75 18 196/87 95 06/13/18 12:00 66 18 179/79 95 Intake and Output 06/13/18 06/14/18 06/14/18 22:59 06:59 14:59 Intake Total 400 28.083 Balance 400 28.083 Intake: Intake, IV Titration 400 28.083 Amount Diltiazem 50 mg In Sodium 28.083 Chloride 0.9% 40 ml @ 5 MG/HR 5 mls/hr IV .Q10H [facility] Rx#:[id number] Sodium Chloride 0.9% 1, 400 000 ml @ 100 mls/hr IV . Q10H [facility] Rx#:[id number] Other: Voiding Method Diaper Diaper # Voids 600 2 # Bowel Movements 1 Weight 76 kg Gen. appearance the patient is in significant degree of respiratory distress even on a BiPAP.. Breathing is less labored while on the BiPAP mask for now and is tolerating a full face mask. Head exam was generally normal. There was no scleral icterus or corneal arcus. Mucous membranes were moist. Neck was supple and without jugular venous distension, thyromegaly, or carotid bruits. Carotids were easily palpable bilaterally. There was no adenopathy. Lungs sounds are diminished and the patient is scattered rhonchi heard throughout the lung his bilaterally and bilateral crackling the lung bases. Few scattered expiratory wheezes are also appreciated. Heart sounds are irregular, tachycardic, possible sinus on the patient's sternum is stable clean and intact at this point in time. Abdominal exam revealed normal bowel sounds. The abdomen was soft, non-tender, and without masses, organomegaly, or appreciable enlargement of the abdominal aorta. Examination of the extremities revealed easily palpable radial, femoral and pedal pulses. There was no cyanosis, clubbing or edema. Neurologically the patient is obtunded. He is arousable and he follows some simple commands at times. His responses not consistent. The patient has developed left-sided hemiplegia and I'm not appreciating any significant motor function the left upper and left lower extremity. Is able to move his right side involving the right upper and right lower extremity. Pupils are equal and reactive to light. No nystagmus. No obvious facial asymmetry that I can see right now. Gag was not evaluated. Cough reflex is weak. No Babinski. No clonus at this point in time. Results - Laboratory Findings CBC and BMP: 06/13/18 21:12 06/13/18 21:12 ABG ABG pH 7.49 (7.35-7.45) H 06/14/18 06:54 ABG pCO2 26 mmHg (35-45) L 06/14/18 06:54 ABG pO2 52 mmHg (83-108) L* 06/14/18 06:54 ABG O2 Saturation 89.6 % (94-97) L 06/14/18 06:54 PT/INR, D-dimer PT 10.1 sec (9.0-12.0) 06/12/18 15:58 INR 1.0 (<1.2) 06/12/18 15:58 Abnormal lab findings: Abnormal Labs 06/12/18 06/12/18 06/12/18 15:54 15:58 15:58 RBC 3.63 L Hgb 11.2 L Hct 34.3 L Plt Count 130 L Lymphocytes # 0.8 L APTT ABG pH ABG pCO2 ABG pO2 ABG HCO3 ABG O2 Saturation Chloride Carbon Dioxide BUN 27 H Creatinine 1.47 H Glucose 160 H POC Glucose (mg/dL) 162 H Plasma Lactic Acid Raheem Alkaline Phosphatase 137 H Total Creatine Kinase CK-MB (CK-2) Urine Protein Urine Glucose (UA) Urine Blood Urine Mucus 06/12/18 06/12/18 06/13/18 15:58 15:58 21:00 RBC Hgb Hct Plt Count Lymphocytes # APTT 18.6 L ABG pH ABG pCO2 ABG pO2 ABG HCO3 ABG O2 Saturation Chloride Carbon Dioxide BUN Creatinine Glucose POC Glucose (mg/dL) Plasma Lactic Acid Raheem Alkaline Phosphatase Total Creatine Kinase 428 H CK-MB (CK-2) 4.7 H Urine Protein 1+ H Urine Glucose (UA) Trace H Urine Blood Trace H Urine Mucus Rare H 06/13/18 06/13/18 06/13/18 21:12 21:12 21:12 RBC 3.94 L Hgb 12.0 L Hct 37.5 L Plt Count 131 L Lymphocytes # 0.4 L APTT ABG pH ABG pCO2 ABG pO2 ABG HCO3 ABG O2 Saturation Chloride 108 H Carbon Dioxide 20 L BUN 21 H Creatinine Glucose 178 H POC Glucose (mg/dL) Plasma Lactic Acid Raheem 2.6 H* Alkaline Phosphatase Total Creatine Kinase CK-MB (CK-2) Urine Protein Urine Glucose (UA) Urine Blood Urine Mucus 06/14/18 06/14/18 06/14/18 01:50 06:41 06:54 RBC Hgb Hct Plt Count Lymphocytes # APTT ABG pH 7.49 H ABG pCO2 26 L ABG pO2 52 L* ABG HCO3 20 L ABG O2 Saturation 89.6 L Chloride Carbon Dioxide BUN Creatinine Glucose POC Glucose (mg/dL) 173 H Plasma Lactic Acid Raheem 2.6 H* Alkaline Phosphatase Total Creatine Kinase CK-MB (CK-2) Urine Protein Urine Glucose (UA) Urine Blood Urine Mucus - Diagnostic Findings Chest x-ray: image reviewed Assessment and Plan Plan: Assessment 1 acute CVA likely involving the right MCA distribution and the patient has left sided hemiplegia. This is most likely an embolic phenomena related to paroxysmal atrial fibrillation. 2 acute hypoxic respiratory failure, currently on BiPAP support. Suspect an acute pulmonary edema in the setting of A. fib RVR. Aspiration cannot be completely ruled out. Early ARDS cannot be ruled out. 3 atrial fibrillation with rapid ventricular response currently on Cardizem drip at 5 mg an hour. 4 coronary artery disease with previous carotid bypass surgery 5 previous history of TIA 6 previous history of left frontal CVA 7 hypertension 8 hyperlipidemia 9 previous history of coronary artery bypass surgery in 2002 Plan Continue BiPAP for respiratory support. Patient is currently on a pressure of 10/5. FiO2 is at 60%. Continue Lasix 40 mg every 12 hours. Continue BiPAP for history support. Cardizem drip for rate control. Echocardiogram to assess LV function. Hold antibiotic ventilation till clear is obtained from neurology. Hold the MRI for now and the patient may need a repeat CAT scan of the brain to make sure there is no interval progression or development of any bleed. IV Rocephin and clindamycin for aspiration precautions. The patient is pen ALLERGIC. stopped IV. Kefzol. Neurologist to Follow-Up. Cardiology Consultation. Condition is critical. High-risk for going into full-blown respiratory failure requiring intubation mechanical ventilation. Put the patient on rectal aspirin. Stop the Plavix for now as the patient is unable to swallow. We'll continue to follow.
[2018-06-14] MEDS ORDERED: cefTRIAXone IN SWFI 1,000 MG/10 ML SYRINGE IVP SCH (09:00)
[2018-06-14] MEDS ORDERED: DILTIAZEM DRIP BOLUS FROM BAG 1 MG SOLN IV ONE (09:18)
[2018-06-14] MEDS: CLINDAMYCIN 600 MG in DEXTROSE 5% IN WATER 50 ML IVPB SCH ×4 (09:21→16:45)
[2018-06-14] MEDS: ASPIRIN 300 MG SUPP RECTAL SCH (09:21)
[2018-06-14] MEDS: SODIUM CHLORIDE 0.9% 1,000 ML IV SCH (09:22)
--- NOTE | 2018-06-14 09:46 | P.CONS ---
History of Present Illness - Reason for Consult Consult date: 06/14/18 Lactic acid 2.6 - History of Present Illness This is a 77-year-old male patient who was found outside his home possibly on the ground for 1-2 hours he was brought into [facility] emergency center for evaluation he was noticed to have a left-sided droop and left-sided weakness he underwent a CAT scan of the brain revealed degenerative changes and nonspecific white matter changes possible remote ischemia and the left frontal lobe. Acute hemorrhage assessment limited due to motion artifact. No sizable obvious intraparenchymal hemorrhage. CTA of the head and neck showed no evidence of hemodynamically significant stenosis. No aneurysm or dissection. Moderate spondylotic changes in the cervical spine and stenosis. Initial chest x-ray showed no acute cardio pulmonary disease. Patient was admitted initially to the selective care unit and started on aspirin Lipitor he says currently he developed respiratory distress, A. fib with RVR and he was transferred into the intensive care unit this morning. He has been switched from nasal cannula to nonrebreather and now on BiPAP. He is currently on Cardizem drip their consult in place with Dr. Larsen from intensive care management, cardiology and Dr. Hackett. Patient does have MRI of the brain and lumbar spine as well as EEG ordered by Dr. Hackett. At this point these will not be able to be completed and a repeat CAT scan of the brain has been ordered here at echocardiogram has been ordered. Dr. Larsen is started patient on clindamycin and ceftriaxone for possible aspiration pneumonia. History is obtained from the record and from nursing staff. Patient is unable to provide any information. Daughter from out of state is at the bedside and states that she talks to him on the phone every day he is independent and manages well at home prior to this. Patient had a lactic acid drawn which was 2.6 and repeat was 2.6, white blood count is 5.7, creatinine 1.47, alkaline phosphatase 137, CK 428. Urine was negative for infection but culture is in progress. Temperature maximum 101.9 Review of Systems ROS unobtainable: due to mental status Past Medical History Past Medical History: Coronary Artery Disease (CAD), CVA/TIA, GERD/Reflux, Hyperlipidemia, Hypertension Additional Past Medical History / Comment(s): TIA 2014. HYPOGLYCEMIC, History of Any Multi-Drug Resistant Organisms: None Reported Past Surgical History: Coronary Bypass/CABG, Tonsillectomy Additional Past Surgical History / Comment(s): QUAD CABG 2003. COLONOSCOPY in 2016-wnl per pt. egd see report Past Anesthesia/Blood Transfusion Reactions: No Reported Reaction Smoking Status: Never smoker Additional Past Alcohol Use History / Comment(s): Patient lives at home independently and has a dog in the home. - Past Family History Sister(s) Family Medical History: Cancer Additional Family Medical History / Comment(s): LUNG, BONE CA Medications and Allergies Home Medications Medication Instructions Recorded Confirmed Type Aspirin [Adult Low Dose Aspirin EC] 81 mg PO DAILY 06/30/17 06/12/18 History Atorvastatin [Lipitor] 10 mg PO DAILY 06/30/17 06/12/18 History Cholecalciferol (Vitamin D3) 2,000 unit PO DAILY 06/30/17 06/12/18 History [Vitamin D3] Cyanocobalamin (Vitamin B-12) 2,000 mcg PO DAILY 06/30/17 06/12/18 History [Vitamin B-12] Metoprolol Tartrate [Lopressor] 25 mg PO DAILY 06/12/18 06/12/18 History Omeprazole [PriLOSEC] 20 mg PO AC-BID 06/12/18 06/12/18 History Allergies Allergy/AdvReac Type Severity Reaction Status Date / Time Penicillins Allergy Unknown Verified 06/12/18 16:29 Physical Exam Vitals: Vital Signs Temp Pulse Pulse Resp BP Pulse Ox 06/14/18 08:40 114 H 06/14/18 08:27 110 H 06/14/18 04:00 99.3 F 102 H 24 174/74 94 L 06/14/18 00:00 98.8 F 116 H 24 170/88 94 L 06/13/18 21:37 108 H 28 H 172/74 95 06/13/18 21:27 114 H 166/86 96 06/13/18 20:40 106 H 06/13/18 20:26 108 H 06/13/18 20:11 99 F 80 37 H 169/78 94 L 06/13/18 20:00 106 H 37 H 06/13/18 15:58 75 18 196/87 95 06/13/18 12:00 66 18 179/79 95 Intake and Output 06/13/18 06/14/18 06/14/18 22:59 06:59 14:59 Intake Total 400 28.083 50 Output Total 1325 Balance 400 28.083 -1275 Intake: IV 50 Sodium Chloride 0.9% 1, 50 000 ml @ 10 mls/hr IV . Q24H [facility] Rx#:[id number] Intake, IV Titration 400 28.083 Amount Diltiazem 50 mg In Sodium 28.083 Chloride 0.9% 40 ml @ 5 MG/HR 5 mls/hr IV .Q10H [facility]ANS Rx#:[id number] Sodium Chloride 0.9% 1, 400 000 ml @ 10 mls/hr IV . Q24H [facility] Rx#:[id number] Output: Urine 1325 Other: Voiding Method Diaper Diaper # Voids 600 2 # Bowel Movements 1 Weight 76 kg Gen: This is a 77-year-old male patient seen in the intensive care unit. He is currently on BiPAP with moderate distress noted. HEENT: Head is atraumatic, normocephalic. Pupils equal, round. Sclerae is anicteric. NECK: Supple. No JVD. No lymphadenopathy. No thyromegaly. LUNGS: Clear to auscultation. No wheezes or rhonchi. No intercostal retractions. HEART: Regular rate and rhythm. No murmur. ABDOMEN: Soft. Bowel sounds are present. No masses. No tenderness. EXTREMITIES: No pedal edema. No calf tenderness. Dorsalis pedis +2 bilaterally. NEUROLOGICAL: Patient will open eyes to verbal stimuli but otherwise not following commands. Left-sided hemiplegia. Results Results: Laboratory Results WBC 6.7 k/uL (3.8-10.6) 06/13/18 21:12 RBC 3.94 m/uL (4.30-5.90) L 06/13/18 21:12 Hgb 12.0 gm/dL (13.0-17.5) L 06/13/18 21:12 Hct 37.5 % (39.0-53.0) L 06/13/18 21:12 MCV 95.4 fL (80.0-100.0) 06/13/18 21: MCH 30.4 pg (25.0-35.0) 06/13/18 21: MCHC 31.9 g/dL (31.0-37.0) 06/13/18 21:12 RDW 13.6 % (11.5-15.5) 06/13/18 21:12 Plt Count 131 k/uL (150-450) L 06/13/18 21:12 Neutrophils % 88 % 06/13/18 21:12 Lymphocytes % 6 % 06/13/18 21:12 Monocytes % 5 % 06/13/18 21:12 Eosinophils % 0 % 06/13/18 21:12 Basophils % 0 % 06/13/18 21:12 Neutrophils # 5.9 k/uL (1.3-7.7) 06/13/18 21:12 Lymphocytes # 0.4 k/uL (1.0-4.8) L 06/13/18 21:12 Monocytes # 0.4 k/uL (0-1.0) 06/13/18 21:12 Eosinophils # 0.0 k/uL (0-0.7) 06/13/18 21:12 Basophils # 0.0 k/uL (0-0.2) 06/13/18 21:12 PT 10.1 sec (9.0-12.0) 06/12/18 15:58 INR 1.0 (<1.2) 06/12/18 15:58 APTT 18.6 sec (22.0-30.0) L 06/12/18 15:58 Sample Site rrad 06/14/18 06:54 ABG pH 7.49 (7.35-7.45) H 06/14/18 06:54 ABG pCO2 26 mmHg (35-45) L 06/14/18 06:54 ABG pO2 52 mmHg (83-108) L* 06/14/18 06:54 ABG HCO3 20 mmol/L (21-25) L 06/14/18 06:54 ABG Total CO2 21 mmol/L (19-24) 06/14/18 06:54 ABG O2 Saturation 89.6 % (94-97) L 06/14/18 06:54 ABG Base Excess -3.5 mmol/L 06/14/18 06:54 Christophe Test Yes 06/14/18 06:54 FiO2 100 % 06/14/18 06:54 Sodium 138 mmol/L (137-145) 06/13/18 21:12 Potassium 4.2 mmol/L (3.5-5.1) 06/13/18 21:12 Chloride 108 mmol/L (98-107) H 06/13/18 21:12 Carbon Dioxide 20 mmol/L (22-30) L 06/13/18 21:12 Anion Gap 10 mmol/L 06/13/18 21:12 BUN 21 mg/dL (9-20) H 06/13/18 21:12 Creatinine 1.21 mg/dL (0.66-1.25) 06/13/18 21:12 Est GFR (CKD-EPI)AfAm 67 (>60 ml/min/1.73 sqM) 06/13/18 21:12 Est GFR (CKD-EPI)NonAf 58 (>60 ml/min/1.73 sqM) 06/13/18 21:12 Glucose 178 mg/dL (74-99) H 06/13/18 21:12 POC Glucose (mg/dL) 154 mg/dL (75-99) H 06/14/18 08:36 POC Glu Chief Concierge ID MeghanMiguel 06/14/18 08:36 Lactic Ac Sepsis Rflx Y 06/13/18 21:54 Plasma Lactic Acid Raheem 2.6 mmol/L (0.7-2.0) H* 06/14/18 01:50 Calcium 8.7 mg/dL (8.4-10.2) 06/13/18 21:12 Total Bilirubin 0.6 mg/dL (0.2-1.3) 06/12/18 15:58 AST 42 U/L (17-59) 06/12/18 15:58 ALT 35 U/L (21-72) 06/12/18 15:58 Alkaline Phosphatase 137 U/L (38-126) H 06/12/18 15:58 Total Creatine Kinase 428 U/L (55-170) H 06/12/18 15:58 CK-MB (CK-2) 4.7 ng/mL (0.0-2.4) H 06/12/18 15:58 CK-MB (CK-2) Rel Index 1.1 06/12/18 15:58 Troponin I <0.012 ng/mL (0.000-0.034) 06/12/18 15:58 Total Protein 6.8 g/dL (6.3-8.2) 06/12/18 15:58 Albumin 4.0 g/dL (3.5-5.0) 06/12/18 15:58 Triglycerides 59 mg/dL (<150) 06/13/18 05:47 Cholesterol 129 mg/dL (<200) 06/13/18 05:47 LDL Cholesterol, Calc 67 mg/dL (0-99) 06/13/18 05:47 HDL Cholesterol 50 mg/dL (40-60) 06/13/18 05:47 Urine Color Yellow 06/13/18 21:00 Urine Appearance Clear (Clear) 06/13/18 21:00 Urine pH 5.5 (5.0-8.0) 06/13/18 21:00 Ur Specific [place] 1.021 (1.001-1.035) 06/13/18 21:00 Urine Protein 1+ (Negative) H 06/13/18 21:00 Urine Glucose (UA) Trace (Negative) H 06/13/18 21:00 Urine Ketones Negative (Negative) 06/13/18 21:00 Urine Blood Trace (Negative) H 06/13/18 21:00 Urine Nitrite Negative (Negative) 06/13/18 21:00 Urine Bilirubin Negative (Negative) 06/13/18 21:00 Urine Urobilinogen <2.0 mg/dL (<2.0) 06/13/18 21:00 Ur Leukocyte Esterase Negative (Negative) 06/13/18 21:00 Urine RBC 2 /hpf (0-5) 06/13/18 21:00 Urine WBC 1 /hpf (0-5) 06/13/18 21:00 Ur Squamous Epith Cells <1 /hpf (0-4) 06/13/18 21:00 Urine Mucus Rare /hpf (None) H 06/13/18 21:00 CBC & Chem 7: 06/13/18 21:12 06/13/18 21:12 Labs: Abnormal Lab Results - Last 24 Hours (Table) 06/13/18 06/13/18 06/13/18 Range/Units 21:00 21:12 21:12 RBC 3.94 L (4.30-5.90) m/uL Hgb 12.0 L (13.0-17.5) gm/dL Hct 37.5 L (39.0-53.0) % Plt Count 131 L (150-450) k/uL Lymphocytes # 0.4 L (1.0-4.8) k/uL ABG pH (7.35-7.45) ABG pCO2 (35-45) mmHg ABG pO2 (83-108) mmHg ABG HCO3 (21-25) mmol/L ABG O2 Saturation (94-97) % Chloride 108 H (98-107) mmol/L Carbon Dioxide 20 L (22-30) mmol/L BUN 21 H (9-20) mg/dL Glucose 178 H (74-99) mg/dL POC Glucose (mg/dL) (75-99) mg/dL Plasma Lactic Acid Raheem (0.7-2.0) mmol/L Urine Protein 1+ H (Negative) Urine Glucose (UA) Trace H (Negative) Urine Blood Trace H (Negative) Urine Mucus Rare H (None) /hpf 06/13/18 06/14/18 06/14/18 Range/Units 21:12 01:50 06:41 RBC (4.30-5.90) m/uL Hgb (13.0-17.5) gm/dL Hct (39.0-53.0) % Plt Count (150-450) k/uL Lymphocytes # (1.0-4.8) k/uL ABG pH (7.35-7.45) ABG pCO2 (35-45) mmHg ABG pO2 (83-108) mmHg ABG HCO3 (21-25) mmol/L ABG O2 Saturation (94-97) % Chloride (98-107) mmol/L Carbon Dioxide (22-30) mmol/L BUN (9-20) mg/dL Glucose (74-99) mg/dL POC Glucose (mg/dL) 173 H (75-99) mg/dL Plasma Lactic Acid Raheem 2.6 H* 2.6 H* (0.7-2.0) mmol/L Urine Protein (Negative) Urine Glucose (UA) (Negative) Urine Blood (Negative) Urine Mucus (None) /hpf 06/14/18 06/14/18 Range/Units 06:54 08:36 RBC (4.30-5.90) m/uL Hgb (13.0-17.5) gm/dL Hct (39.0-53.0) % Plt Count (150-450) k/uL Lymphocytes # (1.0-4.8) k/uL ABG pH 7.49 H (7.35-7.45) ABG pCO2 26 L (35-45) mmHg ABG pO2 52 L* (83-108) mmHg ABG HCO3 20 L (21-25) mmol/L ABG O2 Saturation 89.6 L (94-97) % Chloride (98-107) mmol/L Carbon Dioxide (22-30) mmol/L BUN (9-20) mg/dL Glucose (74-99) mg/dL POC Glucose (mg/dL) 154 H (75-99) mg/dL Plasma Lactic Acid Raheem (0.7-2.0) mmol/L Urine Protein (Negative) Urine Glucose (UA) (Negative) Urine Blood (Negative) Urine Mucus (None) /hpf Microbiology - Last 24 Hours (Table) 06/13/18 05:54 Blood Culture - Preliminary Blood No Growth after 24 hours 06/13/18 05:47 Blood Culture - Preliminary Blood No Growth after 24 hours Assessment and Plan Plan: Is a 77-year-old male patient presented to the hospital with acute stroke with left-sided hemiplegia subsequently found to have paroxysmal atrial fibrillation with RVR and suspected aspiration pneumonia. Patient has been started on clindamycin and Ancef tract some by Dr. Larsen. Patient has a known penicillin ALLERGY. But culture is in progress Continue supportive care. Further recommendations as patient progresses. The above dictated assessment and findings were discussed with Dr. Romero. The impression and plan of care have been directed as dictated. Ira Encarnacion nurse practitioner acting as scribe for Dr. Romero.
[2018-06-14] MEDS ORDERED: NALOXONE 0.4 MG/ML 1 ML VIAL IV PRN (11:01)
[2018-06-14] MEDS: CLOPIDOGREL 75 MG TAB PO SCH (11:15)
[2018-06-14] MEDS: FUROSEMIDE 10 MG/ML 4 ML VIAL IV SCH ×2 (11:16→20:53)
--- NOTE | 2018-06-14 16:25 | CT ---
EXAMINATION TYPE: CT brain wo con DATE OF EXAM: 06/14/2018 COMPARISON: 06/12/2018 HISTORY: NEW ON SET OF LEFT SIDE PARALYSIS CT DLP: [address] of the brain was performed. There is a large area of cytotoxic edema involving the right ICA territory measuring 7.2 cm AP dimens ion by 4.2 cm transverse dimension compatible with acute CVA. There is internal hyperdensity measurin g 9 mm up reflect focal hemorrhage. There is mass effect upon the right lateral ventricle right front al horn without midline shift at this time. There is decreased attenuation about the periventricular white matter and deep white matter of both c erebral hemispheres, compatible with chronic small vessel ischemia. Differential diagnosis does inclu de demyelination. Small area of remote insult left frontal lobe. Osseous calvarium is intact. If symptoms persist consider MRI. IMPRESSION: 1. Large area of acute right MCA territory infarct with small focal hemorrhage. Mass effect upon the right frontal horn without midline shift this time.
--- NOTE | 2018-06-14 18:13 | PN ---
PROGRESS NOTE CHIEF COMPLAINT: CVA. HISTORY OF PRESENT ILLNESS: This patient has deteriorated. During the night he became progressively more short of breath and A-Team was called after which he was moved to the intensive care unit. The daughter has arrived and has been apprised of the situation. PHYSICAL EXAM: At the present time he is unresponsive. Breath sounds are heard with the BiPAP and cardiac exam is normal. The abdomen is soft. IMPRESSION: 1. Progressive right-sided cerebrovascular accident. 2. Coronary artery disease. 3. Atherosclerotic cardiovascular disease. PLAN: Continue with all support appropriate given that the patient never expressed the desire to be DNR or spared terminal care. This was discussed with the daughter. MICHELLE / CANDYN: [id number] /
--- NOTE | 2018-06-14 18:43 | PN ---
PROGRESS NOTE DATE OF SERVICE: 06/13/2018 CHIEF COMPLAINT: CVA. HISTORY OF PRESENT ILLNESS: This gentleman has become more lethargic during the night and now he is running a fever. He likely has aspirated. PHYSICAL EXAMINATION: He is not responsive. There are rhonchi and rales scattered throughout both lung cordon. Cardiac exam demonstrates tachycardia and the remainder of the exam is normal except for his lethargy and semi-comatose state. IMPRESSIONS: 1. Progressive cerebrovascular accident. 2. Aspiration pneumonia. PLAN: 1. Chest x-ray. 2. Updrafts. 3. Blood cultures. 4. Consult with Infectious Disease. 5. IV antibiotics. MMODL / IJN: [id number] /
--- NOTE | 2018-06-14 19:49 | CONS ---
CONSULTATION This is a 77-year-old gentleman with a known history of CAD with a prior aortocoronary bypass surgery in 2004 with a ANDERSON to LAD, vein graft to the diagonal, obtuse marginal branch and RCA. He used to see Dr. Chata Link and now sees Dr. Guzman in the office. He apparently on 06/12/2018 in the morning between 11 and 11:30 or so he went to get the mail and then after that, he was found down about half an hour later, unresponsive with facial droop, left-sided weakness. He was brought into the hospital for this and while he was being treated for his stroke, he developed atrial fibrillation and I was asked to see him in this regard. At the time of my evaluation, patient is not very responsive. He was actually on the telemetry unit and has been evaluated by neurologist here and was found to have left-sided hemiplegia. However, he became more short of breath and there was some mental status changes and additionally found to be in atrial fibrillation with rapid ventricular rate in the 120-130 range and therefore transferred to the ICU. He also became hypoxic. Chest x-ray shows some left basilar into infiltrates, but no overt evidence of heart failure. After being transferred to the ICU, I evaluated him and he is tachypneic, respiratory rate is in the mid 30s and blood gases show a PO2 of 52 with a pH of 7.48. He has been started on a BiPAP as well. He is having difficulty breathing. He is going to be seen by Dr. aLrsen. He also has a higher lactate level. He does not have any previous history of any pulmonary embolism. Atrial fib rate is moderate, not very high and appears to be reasonably stable from a hemodynamic standpoint. The patient is arousable, follows some very simple commands but he does have left-sided hemiplegia. I am unable to him evaluate him from a neurological standpoint, but from a cardiac standpoint, he seems to be hemodynamically stable at this time. PAST MEDICAL HISTORY: 1. CAD with prior bypass surgery. 2. History of previous CVA from which he recovered. 3. Hypertension. 4. Hyperlipidemia. 5. History of gastroesophageal reflux disease. MEDICATIONS: At home include aspirin 81 mg daily, Lipitor 10 mg daily, vitamin D supplements, metoprolol tartrate 25 mg daily, omeprazole 20 mg daily. ALLERGIES: PENICILLIN. REVIEW OF SYSTEMS: Review of systems unavailable. PHYSICAL EXAMINATION: Blood pressure is 150/80, pulse rate is about 110-120, irregularly irregular. HEENT unremarkable. I could not examine his pupils or fundus. Neck is supple. There is no JVD or carotid bruit. Heart exam reveals S1, S2 with irregular rhythm. Short systolic murmur is noted. No gallops. Lungs reveal fine rales both bases more so on the left base. Abdomen is soft. Lower extremities reveal palpable pulses. No edema. Central nervous system assessment was not performed in a detailed fashion. IMPRESSION: 1. Acute cerebrovascular accident with left-sided hemiplegia. 2. Respiratory distress, rule out underlying sepsis. 3. Probable pneumonia. 4. Atrial fibrillation with a moderately rapid ventricular rate. RECOMMENDATIONS: I am recommending that we optimize rate control with IV Cardizem. Patient is hemodynamically stable. I would not do any anticoagulation until we get the okay from neurologist. The patient does not have a clear-cut hemorrhagic stroke, but the CT scan was not a very good study because of motion artifact. Thank you very much for the consult. MMODL / IJN: [id number] /
[2018-06-14] MEDS: ATORVASTATIN 80 MG TAB PO SCH (19:51)
[2018-06-14 20:51] LABS: Glucose,Whole Blood 199 mg/dL (75-99)
[2018-06-14] MEDS ORDERED: DEXAMETHASONE SOD PHOSPHATE 10 MG/ML 1 ML VIAL IV STA (20:52)
--- NOTE | 2018-06-14 21:13 | P.CON ---
Consult Note - . Consult date: 06/14/18 Assessment/Plan:: This is a 77-year-old male patient who was found outside his home possibly on the ground for 1-2 hours he was brought into [facility] emergency center for evaluation he was noticed to have a left-sided droop and left-sided weakness he underwent a CAT scan of the brain revealed degenerative changes and nonspecific white matter changes possible remote ischemia and the left frontal lobe. Acute hemorrhage assessment limited due to motion artifact. No sizable obvious intraparenchymal hemorrhage. CTA of the head and neck showed no evidence of hemodynamically significant stenosis. No aneurysm or dissection. Moderate spondylotic changes in the cervical spine and stenosis. Initial chest x-ray showed no acute cardio pulmonary disease. Patient was admitted initially to the selective care unit and started on aspirin Lipitor he says currently he developed respiratory distress, A. fib with RVR and he was transferred into the intensive care unit this morning. He has been switched from nasal cannula to nonrebreather and now on BiPAP. He is currently on Cardizem drip their consult in place with Dr. Larsen from intensive care management, cardiology and Dr. Hackett. Patient does have MRI of the brain and lumbar spine as well as EEG ordered by Dr. Hackett. At this point these will not be able to be completed and a repeat CAT scan of the brain has been ordered here at echocardiogram has been ordered. Dr. Larsen is started patient on clindamycin and ceftriaxone for possible aspiration pneumonia. History is obtained from the record and from nursing staff. Patient is unable to provide any information. Daughter from out of state is at the bedside and states that she talks to him on the phone every day he is independent and manages well at home prior to this. Patient had a lactic acid drawn which was 2.6 and repeat was 2.6, white blood count is 5.7, creatinine 1.47, alk carleen phosphatase 137, CK 428. Urine was negative for infection but culture is in progress. Temperature maximum 101.9 please see the consult note is dictated by nurse practitioner Mrs. Ira Encarnacion. 77 year old man with large stroke had developed a fever which is now improving with hydration and antibiotic therapy directed toward aspiration pneumonia. The fever is multifactorial including the stroke, and the aspiration pneumonitis. Antimicrobial therapy is adjusted, there is notation of a penicillin ALLERGY of undetermined severity, clindamycin will be continued, Pseudomonas will be treated by changing Rocephin to ceftazidime. Prognosis is very poor, appears Afib as eitology of the stroke, echo pending to ensure no vegetations. I agree with evaluation, assessment and plan as dictated by nurse practitioner Mrs. Ira Encarnacion.
--- NOTE | 2018-06-14 21:22 | P.PN ---
Subjective Progress Note Date: 06/14/18 This patient is a 77-year-old right-handed white male who was seen in neurology consultation yesterday for symptoms of left-sided weakness and possible stroke. Patient apparently was outdoors and had gone out to his mailbox and was found collapsed there by a neighbor. He was brought into the emergency room and [facility] yesterday for further evaluation. He underwent a computed tomography scan of the brain which revealed degenerative changes and nonspecific white matter changes with possible remote ischemia. There was no evidence of any sizable intraparenchymal hemorrhage. He also underwent a CTA angiogram of the head and neck which came back negative for any evidence of significant stenosis and/or aneurysm or dissection. The patient was subsequently admitted to the selective care floor where he was seen in neurology consultation yesterday. His initial evaluation in the emergency room was performed by Dr. Glover. He was not a candidate for TPA even though his NIH stroke scale at the time was 10.0. He was admitted for further evaluation of possible evolving stroke. Yesterday's neurological examination revealed him to have significant left-sided hemiplegia. He was recommended to undergo a MRI of the brain as well as MRI of the lumbar spine. According to the ICU nursing staff the patient went into slight respiratory distress with pulmonary hypertension as well as new onset of atrial fibrillation. He was started on a Cardizem drip and transferred to the intensive care unit very early this morning. Apparently yesterday he did have a temperature of 100.5 at 4 AM and 101.9 at 5:54 AM which is noted by the nursing staff. Patient was given Tylenol as well as blood cultures drawn. The patient was then transferred to the intensive care unit and was placed on BiPAP. He was having some difficulty with his breathing at the time. Dr. Larsen evaluated the patient early this morning and recommended a computed tomography scan of the brain to be done. CAT scan of the brain was completed late this afternoon at 4:25 PM. The final report on this CAT scan from this afternoon revealed a large area of acute right MCA territory infarction with small focal hemorrhages. Mass effect upon the right frontal horn was seen without midline shift at this time. Dr. Larsen had a long discussion with the patient's daughter in the ICU today. It was decided to change his CODE STATUS to DO NOT RESUSCITATE. This evening on rounds we did have a long discussion with the daughter who was at bedside in the ICU. We updated her on all of his neurological findings and the most recent CAT scan of the brain. Review of the CAT scan does reveal 2 areas of hemorrhage within the area of infarction. We have recommended that a follow-up CAT scan of the brain be done tomorrow for follow-up and to monitor for any evidence of hemorrhagic transformation of the stroke. The daughter is aware of his very guarded condition and the findings of hemorrhage. Since he has now been made DO NOT RESUSCITATE status she does not wish to pursue any transfer this patient to a neurointensive care unit or neurosurgical ICU. We will continue supportive care for the patient in the ICU at this time. Patient's daughter is fully aware of his very guarded condition given the findings on his CAT scan of the brain performed this afternoon. As noted we will have a follow- up CAT scan done tomorrow for monitoring the progression of his stroke. This was all discussed today at length with the daughter who is at bedside. All of her questions were answered. She is aware of his very guarded condition. The patient was also seen by Dr. Romero from infectious disease today and he has placed him on clindamycin and Fortaz. There is some concern for possibility of septic emboli from endocarditis and we are awaiting the final report of his echocardiogram study that was done today. His current antibiotics according to Dr. Romero would cover for most forms of endocarditis. We will await the final echocardiogram results however before discussing any further treatment options for this patient. Overall his neurological status remains stable. He is moving his right side very easily and does seem to answer simple questions. We will start him on Decadron as there is some degree of vasogenic edema surrounding the area of infarction. We will continue close neurological follow- up with this patient in the intensive care unit. So overall prognosis at this time remains guarded. Objective - Vital Signs Vital signs: Vital Signs Temp 98.7 F 06/14/18 20:00 Pulse 83 06/14/18 21:00 Resp 33 H 06/14/18 21:00 BP 148/58 06/14/18 21:00 Pulse Ox 100 06/14/18 21:00 Intake & Output 06/14/18 06/14/18 06/15/18 06:59 18:59 06:59 Intake Total 428.083 450 40 Output Total 2605 160 Balance 428.083 -2155 -120 Weight 76 kg Intake: IV 400 40 Clindamycin 600 mg In 100 Dextrose 5% in Water 50 ml @ 50 mls/hr IVPB Q8HR [facility] Rx#:[id number] Sodium Chloride 0.9% 1, 200 40 000 ml @ 10 mls/hr IV . Q24H [facility] Rx#:[id number] cefTAZidime 2 gm In 100 Sodium Chloride 0.9% 100 ml @ 100 mls/hr IVPB Q8HR [facility] Rx#:[id number] Intake, IV Titration 428.083 50 Amount Diltiazem 50 mg In Sodium 28.083 50 Chloride 0.9% 40 ml @ 10 MG/HR 10 mls/hr IV .Q5H [facility] Rx#:[id number] Sodium Chloride 0.9% 1, 400 000 ml @ 10 mls/hr IV . Q24H [facility] Rx#:[id number] Output: Urine 2605 160 Other: Voiding Method Diaper Indwelling Catheter # Voids 2 # Bowel Movements 1 - Exam Physical examination: PHYSICAL EXAMINATION: Patient is resting comfortably in bed. VITAL SIGNS: Blood pressure is [154/56]. Heart rate is [86]. Respiration is [33] . Temperature is [98.7]. HEENT: Head is atraumatic, neck is supple, there were no carotid bruits. CHEST: Lungs are clear to auscultation and percussion. CARDIAC: S1, S2 normal rate and rhythm. There is no murmur. ABDOMEN: Soft and nontender. Bowel sounds are present. EXTREMITIES: There is no pedal edema. Peripheral pulses are present. Neurological examination: Patient is examined today in the intensive care unit. He has BiPAP in place. He does follow some simple commands. He is noted to be moving only his right side on exam at this time. He does follow simple commands. His memory and intellectual functions are slightly impaired. Cranial nerve examination: Cranial nerves II through XII are grossly intact. He has a left upper motor neuron facial weakness pattern. Motor examination: Patient has a left-sided hemiplegic findings in both upper and lower extremity. He does withdraw to painful stimuli in the left lower extremity. Muscle tone and strength is normal on his right side. Sensory examination: Patient does withdraw to painful stimuli. Deep tendon reflexes: The DTRs are 1+ and symmetric. Plantar responses flexor on the right and extensor on the left. Coordination and gait cannot be assessed in this patient at this time. - Labs CBC & Chem 7: 06/13/18 21:12 06/13/18 21:12 Labs: Abnormal Lab Results - Last 24 Hours (Table) 06/13/18 06/13/18 06/13/18 Range/Units 21:00 21:12 21:12 RBC 3.94 L (4.30-5.90) m/uL Hgb 12.0 L (13.0-17.5) gm/dL Hct 37.5 L (39.0-53.0) % Plt Count 131 L (150-450) k/uL Lymphocytes # 0.4 L (1.0-4.8) k/uL ABG pH (7.35-7.45) ABG pCO2 (35-45) mmHg ABG pO2 (83-108) mmHg ABG HCO3 (21-25) mmol/L ABG O2 Saturation (94-97) % Chloride 108 H (98-107) mmol/L Carbon Dioxide 20 L (22-30) mmol/L BUN 21 H (9-20) mg/dL Glucose 178 H (74-99) mg/dL POC Glucose (mg/dL) (75-99) mg/dL Plasma Lactic Acid Raheem (0.7-2.0) mmol/L Urine Protein 1+ H (Negative) Urine Glucose (UA) Trace H (Negative) Urine Blood Trace H (Negative) Urine Mucus Rare H (None) /hpf 06/13/18 06/14/18 06/14/18 Range/Units 21:12 01:50 06:41 RBC (4.30-5.90) m/uL Hgb (13.0-17.5) gm/dL Hct (39.0-53.0) % Plt Count (150-450) k/uL Lymphocytes # (1.0-4.8) k/uL ABG pH (7.35-7.45) ABG pCO2 (35-45) mmHg ABG pO2 (83-108) mmHg ABG HCO3 (21-25) mmol/L ABG O2 Saturation (94-97) % Chloride (98-107) mmol/L Carbon Dioxide (22-30) mmol/L BUN (9-20) mg/dL Glucose (74-99) mg/dL POC Glucose (mg/dL) 173 H (75-99) mg/dL Plasma Lactic Acid Raheem 2.6 H* 2.6 H* (0.7-2.0) mmol/L Urine Protein (Negative) Urine Glucose (UA) (Negative) Urine Blood (Negative) Urine Mucus (None) /hpf 06/14/18 06/14/18 06/14/18 Range/Units 06:54 08:36 20:50 RBC (4.30-5.90) m/uL Hgb (13.0-17.5) gm/dL Hct (39.0-53.0) % Plt Count (150-450) k/uL Lymphocytes # (1.0-4.8) k/uL ABG pH 7.49 H (7.35-7.45) ABG pCO2 26 L (35-45) mmHg ABG pO2 52 L* (83-108) mmHg ABG HCO3 20 L (21-25) mmol/L ABG O2 Saturation 89.6 L (94-97) % Chloride (98-107) mmol/L Carbon Dioxide (22-30) mmol/L BUN (9-20) mg/dL Glucose (74-99) mg/dL POC Glucose (mg/dL) 154 H 199 H (75-99) mg/dL Plasma Lactic Acid Raheem (0.7-2.0) mmol/L Urine Protein (Negative) Urine Glucose (UA) (Negative) Urine Blood (Negative) Urine Mucus (None) /hpf Microbiology - Last 24 Hours (Table) 06/13/18 05:54 Blood Culture - Preliminary Blood No Growth after 24 hours 06/13/18 05:47 Blood Culture - Preliminary Blood No Growth after 24 hours Assessment and Plan (1) Acute right MCA stroke Current Visit: Yes Status: Acute Code(s): I63.511 - CEREB INFRC D/T UNSP OCCLS OR STENOS OF RIGHT MID CEREB ART SNOMED Code(s): 162310400 (2) Coronary artery disease involving coronary bypass graft Current Visit: Yes Status: Acute Code(s): I25.810 - ATHEROSCLEROSIS OF CABG W/O ANGINA PECTORIS SNOMED Code(s): 881547444 (3) Hyperlipidemia Current Visit: Yes Status: Acute Code(s): E78.5 - HYPERLIPIDEMIA, UNSPECIFIED SNOMED Code(s): 52986785 (4) Dysphagia Current Visit: Yes Status: Acute Code(s): R13.10 - DYSPHAGIA, UNSPECIFIED SNOMED Code(s): 38646289 (5) Hypertension Current Visit: Yes Status: Acute Code(s): I10 - ESSENTIAL (PRIMARY) HYPERTENSION SNOMED Code(s): 70951026 Plan: This patient is a 77-year-old right-handed white male who was seen yesterday on neurology consultation for evaluation of left-sided weakness and collapse at home. He was brought into the emergency room yesterday [facility] and was seen in the ER by Dr. Glover. He was sent for computed tomography scan of the brain and CTA angiogram of the head and neck. Results are as noted above. His neurological examination yesterday revealed him to have a left-sided hemiparesis with significant weakness in both arm and leg. There was left upper motor neuron facial weakness pattern noted as well. The patient apparently went into atrial fibrillation some time after midnight yesterday. He was seen and recommended by cardiology to be started on a Cardizem drip. Echocardiogram was completed and results are pending at this time. The patient also at the same time developed severe respiratory compromise and pulmonary hypertension. He was started on BiPAP and transferred to the intensive care unit early this morning. The patient was sent for a computed tomography scan of the brain this afternoon at 4:25 PM. CAT scan report is as noted above. This patient is suffering acute hemorrhagic stroke involving the right middle cerebral artery territory. There was hemorrhage in 2 specific locations inside the area of infarction. Given the extensive area of stroke and this patient's overall medical condition the daughter who is his power of workers compensation attorney decided to make him DO NOT RESUSCITATE status today. We have recommended to start the patient on IV Decadron for management of vasogenic edema in the area of infarction. We will have a repeat computed tomography scan of the brain done tomorrow for follow-up study in comparison. We will need to monitor for possibility of hemorrhagic transformation of this area of stroke. The daughter is aware of his very guarded condition. She does not wish any heroic measures or transfer this patient to a neurointensive care unit or neuro ICU. We will continue supportive care of this patient in the ICU setting today. Case was discussed at length with the daughter at bedside. All of her questions were answered. She is aware of his very guarded condition. We will continue close neurological follow this patient in the intensive care unit. Time with Patient: Greater than 30
[2018-06-14 21:39] LABS: Hemoglobin A1C 7.1 % (4.0-6.0)
[2018-06-14 23:58] LABS: Glucose,Whole Blood 226 mg/dL (75-99)
[2018-06-15] MEDS: CLINDAMYCIN 600 MG in DEXTROSE 5% IN WATER 50 ML IVPB SCH ×6 (00:06→16:49)
[2018-06-15] MEDS: DEXAMETHASONE SOD PHOSPHATE 10 MG/ML 1 ML VIAL IV SCH ×4 (00:07→16:50)
[2018-06-15] MEDS: INSULIN ASPART 100 UNIT/ML 1 ML 10 ML VIAL SQ SCH ×4 (00:07→16:56)
[2018-06-15] MEDS: DILTIAZEM 50 MG in SODIUM CHLORIDE 0.9% 40 ML IV SCH ×5 (01:08→23:27)
[2018-06-15 05:11] LABS: Basophils % (A) 0 %; Eosinophils % (A) 0 %; HCT 36.6 % (39.0-53.0); HGB 11.6 gm/dL (13.0-17.5); Lymphocytes # (A) 0.3 k/uL (1.0-4.8); Lymphocytes % (A) 3 %; MCH 30.1 pg (25.0-35.0); MCHC 31.8 g/dL (31.0-37.0); MCV 94.7 fL (80.0-100.0); Mean Platelet Volume 8.2; Monocytes # (A) 0.3 k/uL (0-1.0); Monocytes % (A) 2 %; Neutrophils # (A) 9.6 k/uL (1.3-7.7); Neutrophils % (A) 94 %; Platelet Count 132 k/uL (150-450); RBC 3.87 m/uL (4.30-5.90); RDW 13.7 % (11.5-15.5); WBC 10.2 k/uL (3.8-10.6)
[2018-06-15 05:26] LABS: Magnesium 1.8 mg/dL (1.6-2.3); Phosphorus 2.4 mg/dL (2.5-4.5); Potassium 3.7 mmol/L (3.5-5.1)
[2018-06-15] MEDS ORDERED: Magnesium Replacement Protocol 1 EACH MISC MISCELLANE PRN (05:37)
[2018-06-15] MEDS ORDERED: Potassium Replacement Protocol 1 EACH MISC MISCELLANE PRN (05:37)
[2018-06-15 06:07] LABS: Glucose,Whole Blood 215 mg/dL (75-99)
[2018-06-15] MEDS: MAGNESIUM SULFATE-D5W PMX 1 GM in DEXTROSE/WATER 1 100ML.BAG IVPB SCH ×2 (06:29→08:51)
[2018-06-15] MEDS: POTASSIUM CHLORIDE 10 MEQ in WATER FOR INJECTION 1 100ML.BAG IVPB SCH ×4 (06:29→23:26)
[2018-06-15] MEDS: IPRATROPIUM-ALBUTEROL 3 ML NEB INHALATION PRN ×3 (07:29→20:05)
--- NOTE | 2018-06-15 08:41 | XR ---
EXAMINATION TYPE: XR chest 1V portable DATE OF EXAM: 06/15/2018 COMPARISON: Prior chest x-ray 06/14/2018 HISTORY: Shortness of breath TECHNIQUE: Single frontal view of the chest is obtained. FINDINGS: Retrocardiac density is present. No evident pneumothorax or pleural effusion. Cardiac medi astinal silhouette, pulmonary vascularity and manav are stable. Patient is post median sternotomy and there are overlying cardiac leads. IMPRESSION: Correlate for left lower lobe pneumonia. Follow-up recommended.
[2018-06-15] MEDS: PANTOPRAZOLE 40 MG/10 ML VIAL IV SCH (08:50)
--- NOTE | 2018-06-15 10:14 | PN ---
PROGRESS NOTE Mr. Harper is a patient who suffered from a CVA with left-sided hemiparesis. He is about the same mentally. He is not responding very well. He has had a fairly large stroke. There is a question of hemorrhage as well. He is not on anticoagulation. He remains in sinus rhythm with PACs and even before that atrial fib rate was controlled. Blood pressure control is fairly decent. S1, S2 heard normally, short systolic murmur noted. Lungs reveal diminished air entry. Abdomen and lower extremity exam is unchanged. Central nervous system exam was not performed. I am recommending that we discontinue the Cardizem drip and no anticoagulation given his circumstances. Patient is on multiple medications including dexamethasone, aspirin and Plavix. We will hold Cardizem drip and see how he does. Overall prognosis is poor. This gentleman has history of CAD prior bypass surgery and a few years ago his stress test did not reveal ischemia. Prognosis remains poor. MMODL / IJN: [id number] /
--- NOTE | 2018-06-15 10:27 | P.PN ---
Subjective Progress Note Date: 06/15/18 77-year-old male patient, known history of coronary artery disease with previous bypass surgery in addition to history of hypertension and hyperlipidemia, came into the hospital after he was found to be on the floor by a bystander. The patient apparently in the morning went up and checked on his mailbox and he collapsed on the floor without having to pass out. He was on the floor for probably an hour where he was found by a bystander and the patient was brought into the emergency department. The patient was seen by emergency physicians and the patient was evaluated for a stroke. The NIH score scale was 10. This stroke intervention this was contacted and the patient had a computed tomography scan of the brain, a CT angiogram of the head and neck was done and was negative. 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 The patient has been taking aspirin a regular basis. He has had previous history of TIA back in 2014. He was not found to be a thrombolytic candidate. He got admitted to the floor. Upon initial evaluation by our neurologist, the patient was found to have left-sided weakness and it was obvious that the patient had a evaluation of a right MCA distribution CVA. The patient was moved to the floor. The patient continued to show signs of left-sided hemiplegia. MRI of the brain was recommended Earlier this morning, the patient became short of breath. He was found to be in acute respiratory distress. The emergency team was again activated. The patient was found to be in atrial fibrillation with rapid ventricular response and his artery was in the 120 to 1:30 range. The patient became progressively more hypoxic and short of breath. At 6:00 chest x-ray was done and it showed left basilar infiltration without signs of any heart failure. Nevertheless the patient continued to be profoundly short of breath and tachypneic and his respiratory rate was in the mid 30s going up to the 40 times an hour range. Blood gases was done that showed a pH of 7.48 with a pCO2 of 26 and pO2 of 52. At that time the patient was started on a BiPAP at a pressure of 10/5 cm of water and the patient was brought into the intensive care unit. He is currently on a BiPAP with an FiO2 of 60%. No reported aspiration. He was given a dose of Lasix and he has already produced more than 600 mL of urine output. He still struggling with breathing despite being on a BiPAP. He is pulling more than 1000cc on the BiPAP. He is on no anticoagulants for now. No previous history of DVT or pulmonary embolism. No swelling in lower extremities. Lactic acid level is at 2.6. No fever. Currently the patient on IV Cardizem for rate control at family grams an hour. On 06/15/2018, I'm seeing this patient for a follow-up. This morning he is off the BiPAP is on oxygen at 15 L high flow. He was taken off the BiPAP this morning. His chest x-ray showing a left lower lobe consolidation and the patient is currently on a combination of antibiotics using a combination of Fortaz and clindamycin. He has a weak congested cough. Unable to bring up much sputum. Neurologically is awake. Is following commands and answering questions. He has left facial weakness. He has hemiplegia on the left upper and left lower extremity. A follow-up CAT scan of the head yesterday showed a large CVA along the MCA distribution and the patient had a early hemorrhagic spots measuring 9 mm in size affecting an area of focal hemorrhage. Based on this, nontender, the patient was offered. The patient's cardiac rhythm is still in atrial fibrillation at the rate is under better control and the patient was on Cardizem drip yesterday and currently is off the Cardizem drip. Hemodynamically stable. Lasix has been placed on hold for now. Neurologist on the case. The patient will have a follow-up CAT scan of the brain today. Meanwhile, the patient is much more alert and awake compared to yesterday. His breathing is less labored. He is off the BiPAP as mentioned. FiO2 is being gradually weaned off. His cough is weak and congested as mentioned. He is nothing by mouth. Objective - Vital Signs Vital signs: Vital Signs Temp 98.1 F 06/15/18 04:00 Pulse 65 06/15/18 07:42 Resp 27 H 06/15/18 07:00 BP 160/69 06/15/18 07:00 Pulse Ox 97 06/15/18 07:00 Intake & Output 06/14/18 06/15/18 06/15/18 18:59 06:59 18:59 Intake Total 450 483.5 160 Output Total 2605 1075 100 Balance -2155 -591.5 60 Weight 76.8 kg Intake: IV 400 390 160 Clindamycin 600 mg In 100 50 Dextrose 5% in Water 50 ml @ 50 mls/hr IVPB Q8HR [facility] Rx#:[id number] Sodium Chloride 0.9% 1, 200 240 60 000 ml @ 10 mls/hr IV . Q24H [facility] Rx#:[id number] cefTAZidime 2 gm In 100 100 100 Sodium Chloride 0.9% 100 ml @ 100 mls/hr IVPB Q8HR [facility] Rx#:[id number] Intake, IV Titration 50 93.5 Amount Diltiazem 50 mg In Sodium 50 93.5 Chloride 0.9% 40 ml @ 10 MG/HR 10 mls/hr IV .Q5H [facility] Rx#:[id number] Output: Urine 2605 1075 100 Other: Voiding Method Indwelling Catheter Indwelling Catheter Indwelling Catheter - Exam Gen. appearance the patient is less short of breath compared to yesterday. In fact his breathing is not labored this morning. The patient is on high flow oxygen at 15 L. Head exam was generally normal. There was no scleral icterus or corneal arcus. Mucous membranes were moist. Neck was supple and without jugular venous distension, thyromegaly, or carotid bruits. Carotids were easily palpable bilaterally. There was no adenopathy. Lungs sounds are diminished and the patient is scattered rhonchi heard throughout the lung his bilaterally and bilateral crackling the lung bases. Few scattered expiratory wheezes are also appreciated. Heart sounds are irregular, tachycardic, possible sinus on the patient's sternum is stable clean and intact at this point in time. Abdominal exam revealed normal bowel sounds. The abdomen was soft, non-tender, and without masses, organomegaly, or appreciable enlargement of the abdominal aorta. Examination of the extremities revealed easily palpable radial, femoral and pedal pulses. There was no cyanosis, clubbing or edema. Neurologically the patient is awake. Following simple commands. There is a preferential gaze to the right upper quadrant of the eyes. The patient has left -sided weakness including left upper and left lower extremity and left facial weakness. Cough is weak. He is able to move his tongue. Pupils are equal and reactive to light around 4 mm in size. There is increased spasticity in the left upper and left lower extremity. Early Babinski signs can be also elicited in the left lower extremity. - Labs CBC & Chem 7: 06/15/18 04:54 06/15/18 04:54 Labs: Abnormal Lab Results - Last 24 Hours (Table) 06/13/18 06/14/18 06/14/18 Range/Units 21:12 20:50 23:57 RBC (4.30-5.90) m/uL Hgb (13.0-17.5) gm/dL Hct (39.0-53.0) % Plt Count (150-450) k/uL Neutrophils # (1.3-7.7) k/uL Lymphocytes # (1.0-4.8) k/uL Carbon Dioxide (22-30) mmol/L BUN (9-20) mg/dL Creatinine (0.66-1.25) mg/dL Glucose (74-99) mg/dL POC Glucose (mg/dL) 199 H 226 H (75-99) mg/dL Hemoglobin A1c 7.1 H (4.0-6.0) % Phosphorus (2.5-4.5) mg/dL 06/15/18 06/15/18 06/15/18 Range/Units 04:54 04:54 06:06 RBC 3.87 L (4.30-5.90) m/uL Hgb 11.6 L (13.0-17.5) gm/dL Hct 36.6 L (39.0-53.0) % Plt Count 132 L (150-450) k/uL Neutrophils # 9.6 H (1.3-7.7) k/uL Lymphocytes # 0.3 L (1.0-4.8) k/uL Carbon Dioxide 21 L (22-30) mmol/L BUN 29 H (9-20) mg/dL Creatinine 1.46 H (0.66-1.25) mg/dL Glucose 193 H (74-99) mg/dL POC Glucose (mg/dL) 215 H (75-99) mg/dL Hemoglobin A1c (4.0-6.0) % Phosphorus 2.4 L (2.5-4.5) mg/dL Microbiology - Last 24 Hours (Table) 06/13/18 05:54 Blood Culture - Preliminary Blood No Growth after 48 hours 06/13/18 05:47 Blood Culture - Preliminary Blood No Growth after 48 hours Assessment and Plan Plan: Assessment 1 acute CVA likely involving the right MCA distribution and the patient has left sided hemiplegia. This is most likely an embolic phenomena related to paroxysmal atrial fibrillation. The patient is more awake compared to yesterday. The patient has left-sided hemiplegia. Hemodynamically stable. Still in atrial fibrillation no anticoagulants were offered as the patient is a tiny 9 mm hemorrhagic focus within the right MCA distribution CVA. The follow- up CAT scan of the brain is to follow today. 2 acute hypoxic respiratory failure, currently off the BiPAP and the patient is on high flow oxygen at 15 L. The patient has developed a left lower lobe pulmonary infiltrates likely an underlying aspiration pneumonia. 3 atrial fibrillation with rapid ventricular and the rate is under better control and currently is off the Cardizem drip 4 coronary artery disease with previous carotid bypass surgery 5 previous history of TIA 6 previous history of left frontal CVA 7 hypertension 8 hyperlipidemia 9 previous history of coronary artery bypass surgery in 2002 10 suspected left lower lobe aspiration pneumonia Plan Hold Lasix. Wean off FiO2 as tolerated to maintain a saturation above 90%. Continue Fortaz and clindamycin. Repeat CAT scan of the brain. Evaluate swallow at a later stage. Keep nothing by mouth for now. Family is on the case and we'll continue to follow make further recommendations based on her progress. Cardizem drip has been discontinued. The patient will be kept on Decadron. The patient be kept in ICU for now. Would also discontinue the aspirin for now.
[2018-06-15 11:17] LABS: Glucose,Whole Blood 207 mg/dL (75-99)
[2018-06-15] MEDS: SODIUM CHLORIDE 0.9% 1,000 ML IV SCH (11:18)
[2018-06-15] MEDS: DEXTROSE 5% IN WATER 1,000 ML IV SCH (11:19)
--- NOTE | 2018-06-15 11:54 | ECHOF ---
Referral Reason:CVA, aaafib MEASUREMENTS -------- HEIGHT: 182.9 cm WEIGHT: 75.7 kg BP: 174/74 RVIDd: 3.2 cm (< 3.3) IVSd: 1.4 cm (0.6 - 1.1) LVIDd: 4.1 cm (3.9 - 5.3) LVPWd: 1.2 cm (0.6 - 1.1) IVSs: 1.5 cm LVIDs: 2.2 cm LVPWs: 1.7 cm LAESV Index (A-L): 15.15 ml/m Ao Diam: 3.6 cm (2.0 - 3.7) LA Diam: 2.4 cm (2.7 - 3.8) MV EXCURSION: 24.989 mm (> 18.000) MV EF SLOPE: 81 mm/s (70 - 150) EPSS: 1.7 cm MV E Lukas: 0.76 m/s MV DecT: 242 ms MV A Lukas: 0.35 m/s MV E/A Ratio: 2.15 RAP: 5.00 mmHg RVSP: 15.17 mmHg FINDINGS -------- Atrial fibrillation. This was a technically adequate study. The left ventricular size is normal. There is mild concentric left ventricular hypertrophy. Overa ll left ventricular systolic function is normal with, an EF between 55 - 60 %. The right ventricle is mildly enlarged. The left atrial size is normal. Normal LA size by volume 22+/-6 ml/m2. The right atrial size is normal. There is mild aortic valve sclerosis. There is no evidence of aortic regurgitation. Mild mitral annular calcification present. Mild mitral regurgitation is present. Mild tricuspid regurgitation present. There is no evidence of pulmonary hypertension. The right v entricular systolic pressure, as measured by Doppler, is 15.17mmHg. The pulmonic valve was not well visualized. The aortic root size is normal. There is no pericardial effusion. CONCLUSIONS -------- 1. The left ventricular size is normal. 2. There is mild concentric left ventricular hypertrophy. 3. Overall left ventricular systolic function is normal with, an EF between 55 - 60 %. 4. The right ventricle is mildly enlarged. 5. The left atrial size is normal. 6. The right atrial size is normal. 7. There is mild aortic valve sclerosis. 8. Mild mitral annular calcification present. 9. Mild mitral regurgitation is present. 10. Mild tricuspid regurgitation present. 11. There is no evidence of pulmonary hypertension. 12. The right ventricular systolic pressure, as measured by Doppler, is 15.17mmHg. 13. The pulmonic valve was not well visualized. 14. The aortic root size is normal. 15. There is no pericardial effusion. DATA CENTER ARCHITECT: Anu De La Cruz RDCS
--- NOTE | 2018-06-15 12:00 | CT ---
EXAMINATION TYPE: CT brain wo con DATE OF EXAM: 06/15/2018 COMPARISON: 06/14/2018 HISTORY: 77-year-old male follow-up study for right-sided hemorrhagic stroke . TECHNIQUE: Examination was done in axial plane without intravenous contrast. Coronal and sagittal r econstructions performed. CT DLP: 1064.3 mGycm Automated exposure control for dose reduction was used. FINDINGS: Redemonstrated a large area of vasogenic edema measuring up to 7.6 x 4.3 cm involving the posterior r ight frontal lobe extending into the anterior right temporal lobe into the junction with the right pa rietal lobe. There is continued mass effect with slight asymmetric flattening of the right lateral ve ntricle, slight falcine herniation, axial image 26, and 4 mm of leftward midline shift, decreased fro m 6 mm, previously. The intraparenchymal hematoma is measured on coronal series at 2.8 cm, not significantly changed and shows hyperdense areas and isodense areas suggesting evolving hemorrhage. No extra-axial fluid collection is seen. The overall area of hypodensity is slightly more defined. Paranasal sinuses and mastoid air cells well pneumatized. Orbits and globes are intact. IMPRESSION: 1. Some evolving changes with greater hypodensity involving the right MCA territory infarct. 2. Associated intraparenchymal hematoma shows acute and subacute density and stable size at 2.8 cm. 3. Associated mass effect with slight asymmetric flattening of the right lateral ventricle, slight rushing bfalcine herniation, and slight leftward midline shift of 4 mm versus 6 mm, previously.
[2018-06-15 16:57] LABS: Glucose,Whole Blood 185 mg/dL (75-99)
[2018-06-15] MEDS: ATORVASTATIN 80 MG TAB PO SCH (20:25)
[2018-06-16] MEDS: CLINDAMYCIN 600 MG in DEXTROSE 5% IN WATER 50 ML IVPB SCH ×6 (00:14→18:05)
[2018-06-16] MEDS: POTASSIUM CHLORIDE 10 MEQ in WATER FOR INJECTION 1 100ML.BAG IVPB SCH ×4 (00:35→08:37)
[2018-06-16 00:58] LABS: Glucose,Whole Blood 201 mg/dL (75-99)
[2018-06-16] MEDS: INSULIN ASPART 100 UNIT/ML 1 ML 10 ML VIAL SQ SCH ×4 (01:02→18:06)
[2018-06-16] MEDS: DEXAMETHASONE SOD PHOSPHATE 4 MG/ML 1 ML VIAL IV SCH ×4 (03:49→21:44)
[2018-06-16] MEDS: DEXTROSE 5% IN WATER 1,000 ML IV SCH ×2 (03:49→18:06)
[2018-06-16] MEDS: DILTIAZEM 50 MG in SODIUM CHLORIDE 0.9% 40 ML IV SCH ×4 (03:49→20:19)
[2018-06-16 04:51] LABS: Basophils % (A) 0 %; Eosinophils % (A) 0 %; HCT 35.9 % (39.0-53.0); HGB 11.7 gm/dL (13.0-17.5); Lymphocytes # (A) 0.4 k/uL (1.0-4.8); Lymphocytes % (A) 3 %; MCH 30.3 pg (25.0-35.0); MCHC 32.5 g/dL (31.0-37.0); MCV 93.4 fL (80.0-100.0); Monocytes # (A) 0.4 k/uL (0-1.0); Monocytes % (A) 3 %; Neutrophils # (A) 11.7 k/uL (1.3-7.7); Neutrophils % (A) 93 %; Platelet Count 153 k/uL (150-450); RBC 3.84 m/uL (4.30-5.90); RDW 13.5 % (11.5-15.5); WBC 12.7 k/uL (3.8-10.6)
[2018-06-16 05:01] LABS: Magnesium 2.4 mg/dL (1.6-2.3); Phosphorus 3.3 mg/dL (2.5-4.5); Potassium 3.8 mmol/L (3.5-5.1)
[2018-06-16 06:13] LABS: Glucose,Whole Blood 171 mg/dL (75-99)
[2018-06-16] MEDS ORDERED: Potassium Replacement Protocol 1 EACH MISC MISCELLANE PRN (06:26)
[2018-06-16] MEDS: IPRATROPIUM-ALBUTEROL 3 ML NEB INHALATION PRN ×4 (07:24→20:10)
[2018-06-16] MEDS: PANTOPRAZOLE 40 MG/10 ML VIAL IV SCH (08:38)
--- NOTE | 2018-06-16 08:47 | P.PN ---
Subjective Progress Note Date: 06/15/18 This patient is a 77-year-old right-handed white male who was seen in neurology consultation yesterday for symptoms of left-sided weakness and possible stroke. Patient apparently was outdoors and had gone out to his mailbox and was found collapsed there by a neighbor. He was brought into the emergency room and [facility] yesterday for further evaluation. He underwent a computed tomography scan of the brain which revealed degenerative changes and nonspecific white matter changes with possible remote ischemia. There was no evidence of any sizable intraparenchymal hemorrhage. He also underwent a CTA angiogram of the head and neck which came back negative for any evidence of significant stenosis and/or aneurysm or dissection. The patient was subsequently admitted to the selective care floor where he was seen in neurology consultation yesterday. His initial evaluation in the emergency room was performed by Dr. Glover. He was not a candidate for TPA even though his NIH stroke scale at the time was 10.0. He was admitted for further evaluation of possible evolving stroke. Yesterday's neurological examination revealed him to have significant left-sided hemiplegia. He was recommended to undergo a MRI of the brain as well as MRI of the lumbar spine. According to the ICU nursing staff the patient went into slight respiratory distress with pulmonary hypertension as well as new onset of atrial fibrillation. He was started on a Cardizem drip and transferred to the intensive care unit very early this morning. Apparently yesterday he did have a temperature of 100.5 at 4 AM and 101.9 at 5:54 AM which is noted by the nursing staff. Patient was given Tylenol as well as blood cultures drawn. The patient was then transferred to the intensive care unit and was placed on BiPAP. He was having some difficulty with his breathing at the time. Dr. Larsen evaluated the patient early this morning and recommended a computed tomography scan of the brain to be done. CAT scan of the brain was completed late this afternoon at 4:25 PM. The final report on this CAT scan from this afternoon revealed a large area of acute right MCA territory infarction with small focal hemorrhages. Mass effect upon the right frontal horn was seen without midline shift at this time. Dr. Larsen had a long discussion with the patient's daughter in the ICU today. It was decided to change his CODE STATUS to DO NOT RESUSCITATE. This evening on rounds we did have a long discussion with the daughter who was at bedside in the ICU. We updated her on all of his neurological findings and the most recent CAT scan of the brain. Review of the CAT scan does reveal 2 areas of hemorrhage within the area of infarction. We have recommended that a follow-up CAT scan of the brain be done tomorrow for follow-up and to monitor for any evidence of hemorrhagic transformation of the stroke. The daughter is aware of his very guarded condition and the findings of hemorrhage. Since he has now been made DO NOT RESUSCITATE status she does not wish to pursue any transfer this patient to a neurointensive care unit or neurosurgical ICU. We will continue supportive care for the patient in the ICU at this time. Patient's daughter is fully aware of his very guarded condition given the findings on his CAT scan of the brain performed this afternoon. As noted we will have a follow- up CAT scan done tomorrow for monitoring the progression of his stroke. This was all discussed today at length with the daughter who is at bedside. All of her questions were answered. She is aware of his very guarded condition. The patient was also seen by Dr. Romero from infectious disease today and he has placed him on clindamycin and Fortaz. There is some concern for possibility of septic emboli from endocarditis and we are awaiting the final report of his echocardiogram study that was done today. His current antibiotics according to Dr. Romero would cover for most forms of endocarditis. We will await the final echocardiogram results however before discussing any further treatment options for this patient. Patient was able to have echocardiogram study done which was read out today. There is no evidence to suggest endocarditis. Cardiology has discontinued his Cardizem drip and recommend no anticoagulation. Overall his neurological status remains stable. He is moving his right side very easily and does seem to answer simple questions. The patient is much more awake today in the intensive care unit. He is currently resting with BiPAP in place. His speech is much improved and he is much more alert as compared to yesterday. We will start him on Decadron as there is some degree of vasogenic edema surrounding the area of infarction. The patient underwent a repeat computed tomography scan of the brain today. This is a follow-up study to monitor progression of his large right MCA stroke with hemorrhage. The report of the CAT scan done today reveals some evolving changes with greater hypodensity involving the right MCA territory infarct. Associated intraparenchymal hematoma shows acute and subacute density and stable in size at 2.8 cm. Associated mass effect with slight asymmetric flattening of the right lateral ventricle with slight subfalcine herniation and slight leftward midline shift of 4 mm versus 6 mm previously. Overall the CAT scan remains stable. We did discuss his findings today with the patient at length. This was also mentioned earlier in the day to his daughter who is at bedside in the ICU. We will continue close monitoring of his neurological status in the intensive care unit. He still remains critical and we will need to continue with very close neuro checks for him given the extent of his stroke. There is no evidence to suggest hemorrhagic transformation of his stroke at this time. We will continue close neurological follow-up with this patient in the intensive care unit. So overall prognosis at this time remains guarded. Objective - Vital Signs Vital signs: Vital Signs Temp 98.4 F 06/15/18 20:00 Pulse 83 06/15/18 23:00 Resp 24 06/15/18 23:00 BP 142/77 06/15/18 23:00 Pulse Ox 95 06/15/18 23:00 Intake & Output 06/15/18 06/15/18 06/16/18 06:59 18:59 06:59 Intake Total 483.5 730 485.333 Output Total 1075 405 164 Balance -591.5 325 321.333 Weight 76.8 kg Intake: IV 390 680 440 Clindamycin 600 mg In 50 Dextrose 5% in Water 50 ml @ 50 mls/hr IVPB Q8HR [facility] Rx#:[id number] Dextrose 5% in Water 1, 480 240 000 ml @ 60 mls/hr IV . [id number] [facility] Rx#:[id number] Potassium Chloride 10 meq 200 In Water For Injection 1 100ml.bag @ 100 mls/hr IVPB Q1H [facility] Rx#: [id number] Sodium Chloride 0.9% 1, 240 100 000 ml @ 60 mls/hr IV . [id number] [facility] Rx#:[id number] cefTAZidime 2 gm In 100 100 Sodium Chloride 0.9% 100 ml @ 100 mls/hr IVPB Q8HR [facility] Rx#:[id number] Intake, IV Titration 93.5 50 45.333 Amount Diltiazem 50 mg In Sodium 93.5 50 45.333 Chloride 0.9% 40 ml @ 10 MG/HR 10 mls/hr IV .Q5H [facility] Rx#:[id number] Output: Urine 1075 405 164 Other: Voiding Method Indwelling Catheter Indwelling Catheter Indwelling Catheter - Exam Physical examination: PHYSICAL EXAMINATION: Patient is resting comfortably in bed. VITAL SIGNS: Blood pressure is [135/70]. Heart rate is [87]. Respiration is [30] . Temperature is [98.2]. HEENT: Head is atraumatic, neck is supple, there were no carotid bruits. CHEST: Lungs are clear to auscultation and percussion. CARDIAC: S1, S2 normal rate and rhythm. There is no murmur. ABDOMEN: Soft and nontender. Bowel sounds are present. EXTREMITIES: There is no pedal edema. Peripheral pulses are present. Neurological examination: Patient is examined today in the intensive care unit. He has BiPAP in place. He does follow some simple commands. The patient is much more awake and alert today as compared to yesterday. He is noted to be moving only his right side on exam at this time. He does follow simple commands. His memory and intellectual functions are slightly impaired. Cranial nerve examination: Cranial nerves II through XII are grossly intact. He has a left upper motor neuron facial weakness pattern. Motor examination: Patient has a left-sided hemiplegic findings in both upper and lower extremity. He does withdraw to painful stimuli in the left lower extremity. Muscle tone and strength is normal on his right side. Sensory examination: Patient does withdraw to painful stimuli. Deep tendon reflexes: The DTRs are 1+ and symmetric. Plantar responses flexor on the right and extensor on the left. Coordination and gait cannot be assessed in this patient at this time. - Labs CBC & Chem 7: 06/16/18 04:30 06/16/18 04:30 Labs: Abnormal Lab Results - Last 24 Hours (Table) 06/14/18 06/15/18 06/15/18 Range/Units 23:57 04:54 04:54 RBC 3.87 L (4.30-5.90) m/uL Hgb 11.6 L (13.0-17.5) gm/dL Hct 36.6 L (39.0-53.0) % Plt Count 132 L (150-450) k/uL Neutrophils # 9.6 H (1.3-7.7) k/uL Lymphocytes # 0.3 L (1.0-4.8) k/uL Potassium (3.5-5.1) mmol/L Carbon Dioxide 21 L (22-30) mmol/L BUN 29 H (9-20) mg/dL Creatinine 1.46 H (0.66-1.25) mg/dL Glucose 193 H (74-99) mg/dL POC Glucose (mg/dL) 226 H (75-99) mg/dL Phosphorus 2.4 L (2.5-4.5) mg/dL 06/15/18 06/15/18 06/15/18 Range/Units 06:06 11:16 16:55 RBC (4.30-5.90) m/uL Hgb (13.0-17.5) gm/dL Hct (39.0-53.0) % Plt Count (150-450) k/uL Neutrophils # (1.3-7.7) k/uL Lymphocytes # (1.0-4.8) k/uL Potassium (3.5-5.1) mmol/L Carbon Dioxide (22-30) mmol/L BUN (9-20) mg/dL Creatinine (0.66-1.25) mg/dL Glucose (74-99) mg/dL POC Glucose (mg/dL) 215 H 207 H 185 H (75-99) mg/dL Phosphorus (2.5-4.5) mg/dL 06/15/18 Range/Units 19:20 RBC (4.30-5.90) m/uL Hgb (13.0-17.5) gm/dL Hct (39.0-53.0) % Plt Count (150-450) k/uL Neutrophils # (1.3-7.7) k/uL Lymphocytes # (1.0-4.8) k/uL Potassium 3.4 L (3.5-5.1) mmol/L Carbon Dioxide (22-30) mmol/L BUN (9-20) mg/dL Creatinine (0.66-1.25) mg/dL Glucose (74-99) mg/dL POC Glucose (mg/dL) (75-99) mg/dL Phosphorus (2.5-4.5) mg/dL Microbiology - Last 24 Hours (Table) 06/13/18 05:54 Blood Culture - Preliminary Blood No Growth after 48 hours 06/13/18 05:47 Blood Culture - Preliminary Blood No Growth after 48 hours Assessment and Plan (1) Acute right MCA stroke Current Visit: Yes Status: Acute Code(s): I63.511 - CEREB INFRC D/T UNSP OCCLS OR STENOS OF RIGHT MID CEREB ART SNOMED Code(s): 547124935 (2) Coronary artery disease involving coronary bypass graft Current Visit: Yes Status: Acute Code(s): I25.810 - ATHEROSCLEROSIS OF CABG W/O ANGINA PECTORIS SNOMED Code(s): 885329315 (3) Hyperlipidemia Current Visit: Yes Status: Acute Code(s): E78.5 - HYPERLIPIDEMIA, UNSPECIFIED SNOMED Code(s): 77704006 (4) Dysphagia Current Visit: Yes Status: Acute Code(s): R13.10 - DYSPHAGIA, UNSPECIFIED SNOMED Code(s): 36754919 (5) Hypertension Current Visit: Yes Status: Acute Code(s): I10 - ESSENTIAL (PRIMARY) HYPERTENSION SNOMED Code(s): 14288564 Plan: This patient is a 77-year-old right-handed white male who was initially admitted to hospital with findings of acute left-sided hemiplegia. The patient had follow-up computed tomography scan of the brain done today the results of which are noted above. There is stability in terms of the intraparenchymal hematoma in the area of the right MCA infarct. There was no evidence of hemorrhagic transformation. There was slight subfalcine herniation with slight leftward midline shift of 4 mm versus 6 mm previously. The patient is to continue on IV Decadron at this time. His case was discussed at length with the patient's daughter at bedside earlier this morning. We will update her on the follow-up CAT scan results tomorrow. At this point he is much more awake and alert and mentally seems to be competent. We will continue aggressive's management of his stroke condition at this time. His overall prognosis remains guarded. We will continue close neurological follow-up of this patient in the intensive care unit.
--- NOTE | 2018-06-16 09:12 | XR ---
EXAMINATION TYPE: XR chest 1V DATE OF EXAM: 06/16/2018 COMPARISON: 06/15/2018 HISTORY: Shortness of breath TECHNIQUE: Single frontal view of the chest is obtained. FINDINGS: Postsurgical changes are noted. There are subsegmental changes at both lung bases. Hyperin flation suggests COPD. Arthropathy of the shoulders. No overt failure. IMPRESSION: 1. COPD with left basilar atelectasis or early infiltrate. Findings involving the left lower lobe jess ear to be stable.
[2018-06-16 12:01] LABS: Glucose,Whole Blood 192 mg/dL (75-99)
--- NOTE | 2018-06-16 12:39 | PN ---
PROGRESS NOTE Mr. Harper seems to be a little more alert today. He has history of CAD, stable, presented with an acute CVA and also there is some hemorrhagic stroke situation as well. Overall, he seems to be doing a bit better. Plan is to continue current medications. He is going in and out of atrial fibrillation. He is on a small dose of Cardizem at this time. We will continue the Cardizem for rate control. Continue other medications. Avoid anticoagulation given the circumstances. Blood pressure today is 130/80, pulse rate is about 70 per minute. It appears to be more of a atrial fib with a slow rate. Advised to hold Cardizem at this rate. S1, S2 heard normally, short systolic murmur noted. Lungs reveal diminished air entry. Abdomen is soft. Lower extremities reveal diminished pulses. Central nervous system assessment is per Neurology. I am recommending that we continue the same medications, use Cardizem for rate control if necessary and anticoagulate the patient only after getting the clearance from Neurology. Prognosis remains poor. MMODL / IJN: [id number] /
--- NOTE | 2018-06-16 14:15 | P.PN ---
Subjective Progress Note Date: 06/16/18 77-year-old male patient, known history of coronary artery disease with previous bypass surgery in addition to history of hypertension and hyperlipidemia, came into the hospital after he was found to be on the floor by a bystander. The patient apparently in the morning went up and checked on his mailbox and he collapsed on the floor without having to pass out. He was on the floor for probably an hour where he was found by a bystander and the patient was brought into the emergency department. The patient was seen by emergency physicians and the patient was evaluated for a stroke. The NIH score scale was 10. This stroke intervention this was contacted and the patient had a computed tomography scan of the brain, a CT angiogram of the head and neck was done and was negative. 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 The patient has been taking aspirin a regular basis. He has had previous history of TIA back in 2014. He was not found to be a thrombolytic candidate. He got admitted to the floor. Upon initial evaluation by our neurologist, the patient was found to have left-sided weakness and it was obvious that the patient had a evaluation of a right MCA distribution CVA. The patient was moved to the floor. The patient continued to show signs of left-sided hemiplegia. MRI of the brain was recommended Earlier this morning, the patient became short of breath. He was found to be in acute respiratory distress. The emergency team was again activated. The patient was found to be in atrial fibrillation with rapid ventricular response and his artery was in the 120 to 1:30 range. The patient became progressively more hypoxic and short of breath. At 6:00 chest x-ray was done and it showed left basilar infiltration without signs of any heart failure. Nevertheless the patient continued to be profoundly short of breath and tachypneic and his respiratory rate was in the mid 30s going up to the 40 times an hour range. Blood gases was done that showed a pH of 7.48 with a pCO2 of 26 and pO2 of 52. At that time the patient was started on a BiPAP at a pressure of 10/5 cm of water and the patient was brought into the intensive care unit. He is currently on a BiPAP with an FiO2 of 60%. No reported aspiration. He was given a dose of Lasix and he has already produced more than 600 mL of urine output. He still struggling with breathing despite being on a BiPAP. He is pulling more than 1000cc on the BiPAP. He is on no anticoagulants for now. No previous history of DVT or pulmonary embolism. No swelling in lower extremities. Lactic acid level is at 2.6. No fever. Currently the patient on IV Cardizem for rate control at family grams an hour. On 06/15/2018, I'm seeing this patient for a follow-up. This morning he is off the BiPAP is on oxygen at 15 L high flow. He was taken off the BiPAP this morning. His chest x-ray showing a left lower lobe consolidation and the patient is currently on a combination of antibiotics using a combination of Fortaz and clindamycin. He has a weak congested cough. Unable to bring up much sputum. Neurologically is awake. Is following commands and answering questions. He has left facial weakness. He has hemiplegia on the left upper and left lower extremity. A follow-up CAT scan of the head yesterday showed a large CVA along the MCA distribution and the patient had a early hemorrhagic spots measuring 9 mm in size affecting an area of focal hemorrhage. Based on this, nontender, the patient was offered. The patient's cardiac rhythm is still in atrial fibrillation at the rate is under better control and the patient was on Cardizem drip yesterday and currently is off the Cardizem drip. Hemodynamically stable. Lasix has been placed on hold for now. Neurologist on the case. The patient will have a follow-up CAT scan of the brain today. Meanwhile, the patient is much more alert and awake compared to yesterday. His breathing is less labored. He is off the BiPAP as mentioned. FiO2 is being gradually weaned off. His cough is weak and congested as mentioned. He is nothing by mouth. 06/16/2018, the patient is being seen for a follow-up. The patient was taken again off the BiPAP and currently is on oxygen 6 L per minute nasal cannula maintaining a saturation above 90%. Calm and comfortable. Nonacute distress. Awake. Communicating. He has left facial weakness. Has left-sided hemiplegia. A follow-up CAT scan of the head was done yesterday and showed a stable hemorrhagic focus within a evolving right MCA distribution stroke. The patient is nothing by mouth. The patient failed a swallow evaluation yesterday and this will be repeated again today. Possibly may need a modified barium swallow. Otherwise, he is afebrile. White cell count is at 12.7. The patient' s creatinine is at 1.4. He is still in atrial fibrillation and Cardizem is being utilized on and off in the form of the drip for better rate control. Echocardiogram was done and the patient has a preserved LV function and there is no valvular abnormalities. No fever. No aspiration. No open wounds or sores. No skin rashes. No other significant events overnight. His cough is weak as mentioned earlier. Objective - Vital Signs Vital signs: Vital Signs Temp 98.6 F 06/16/18 08:00 Pulse 56 L 06/16/18 11:21 Resp 22 06/16/18 11:00 BP 124/63 06/16/18 11:00 Pulse Ox 96 06/16/18 11:22 Intake & Output 06/15/18 06/16/18 06/16/18 18:59 06:59 18:59 Intake Total 730 1349.000 660 Output Total 405 482 220 Balance 325 867.000 440 Weight 74.4 kg 74.4 kg Intake: IV 680 1260 610 Clindamycin 600 mg In 100 50 Dextrose 5% in Water 50 ml @ 50 mls/hr IVPB Q8HR [facility] Rx#:[id number] Dextrose 5% in Water 1, 480 660 360 000 ml @ 60 mls/hr IV . [id number] [facility] Rx#:[id number] Potassium Chloride 10 meq 400 100 In Water For Injection 1 100ml.bag @ 100 mls/hr IVPB Q1H [facility] Rx#: [id number] Sodium Chloride 0.9% 1, 100 000 ml @ 60 mls/hr IV . [id number] [facility] Rx#:[id number] cefTAZidime 2 gm In 100 100 100 Sodium Chloride 0.9% 100 ml @ 100 mls/hr IVPB Q8HR [facility] Rx#:[id number] Intake, IV Titration 50 89.000 50 Amount Diltiazem 50 mg In Sodium 50 89.000 50 Chloride 0.9% 40 ml @ 10 MG/HR 10 mls/hr IV .Q5H [facility] Rx#:[id number] Output: Urine 405 482 220 Other: Voiding Method Indwelling Catheter Indwelling Catheter Indwelling Catheter - Exam Gen. appearance the patient is currently comfortable on 6 L of oxygen by nasal cannula. Head exam was generally normal. There was no scleral icterus or corneal arcus. Mucous membranes were moist. Facial asymmetry with left facial weakness Neck was supple and without jugular venous distension, thyromegaly, or carotid bruits. Carotids were easily palpable bilaterally. There was no adenopathy. Lungs sounds are diminished and the patient is scattered rhonchi heard throughout the lung his bilaterally and bilateral crackling the lung bases. Few scattered expiratory wheezes are also appreciated. Heart sounds are irregular, tachycardic, possible sinus on the patient's sternum is stable clean and intact at this point in time. Abdominal exam revealed normal bowel sounds. The abdomen was soft, non-tender, and without masses, organomegaly, or appreciable enlargement of the abdominal aorta. Examination of the extremities revealed easily palpable radial, femoral and pedal pulses. There was no cyanosis, clubbing or edema. Neurologically the patient is awake. Following simple commands. There is a preferential gaze to the right upper quadrant of the eyes. The patient has left -sided weakness including left upper and left lower extremity and left facial weakness. Cough is weak. He is able to move his tongue. Pupils are equal and reactive to light around 4 mm in size. There is increased spasticity in the left upper and left lower extremity. Early Babinski signs can be also elicited in the left lower extremity. - Labs CBC & Chem 7: 06/16/18 04:30 06/16/18 04:30 Labs: Abnormal Lab Results - Last 24 Hours (Table) 06/15/18 06/15/18 06/16/18 Range/Units 16:55 19:20 00:56 WBC (3.8-10.6) k/uL RBC (4.30-5.90) m/uL Hgb (13.0-17.5) gm/dL Hct (39.0-53.0) % Neutrophils # (1.3-7.7) k/uL Lymphocytes # (1.0-4.8) k/uL Potassium 3.4 L (3.5-5.1) mmol/L Chloride (98-107) mmol/L Carbon Dioxide (22-30) mmol/L BUN (9-20) mg/dL Creatinine (0.66-1.25) mg/dL Glucose (74-99) mg/dL POC Glucose (mg/dL) 185 H 201 H (75-99) mg/dL Magnesium (1.6-2.3) mg/dL 06/16/18 06/16/18 06/16/18 Range/Units 04:30 04:30 06:11 WBC 12.7 H (3.8-10.6) k/uL RBC 3.84 L (4.30-5.90) m/uL Hgb 11.7 L (13.0-17.5) gm/dL Hct 35.9 L (39.0-53.0) % Neutrophils # 11.7 H (1.3-7.7) k/uL Lymphocytes # 0.4 L (1.0-4.8) k/uL Potassium (3.5-5.1) mmol/L Chloride 108 H (98-107) mmol/L Carbon Dioxide 21 L (22-30) mmol/L BUN 38 H (9-20) mg/dL Creatinine 1.41 H (0.66-1.25) mg/dL Glucose 118 H (74-99) mg/dL POC Glucose (mg/dL) 171 H (75-99) mg/dL Magnesium 2.4 H (1.6-2.3) mg/dL 06/16/18 Range/Units 11:59 WBC (3.8-10.6) k/uL RBC (4.30-5.90) m/uL Hgb (13.0-17.5) gm/dL Hct (39.0-53.0) % Neutrophils # (1.3-7.7) k/uL Lymphocytes # (1.0-4.8) k/uL Potassium (3.5-5.1) mmol/L Chloride (98-107) mmol/L Carbon Dioxide (22-30) mmol/L BUN (9-20) mg/dL Creatinine (0.66-1.25) mg/dL Glucose (74-99) mg/dL POC Glucose (mg/dL) 192 H (75-99) mg/dL Magnesium (1.6-2.3) mg/dL Microbiology - Last 24 Hours (Table) 06/13/18 05:54 Blood Culture - Preliminary Blood No Growth after 72 hours 06/13/18 05:47 Blood Culture - Preliminary Blood No Growth after 72 hours Assessment and Plan Plan: Assessment 1 acute CVA likely involving the right MCA distribution and the patient has left sided hemiplegia. This is most likely an embolic phenomena related to paroxysmal atrial fibrillation. The patient has a area of hemorrhagic transformation within the right MCA CVA. The patient is hemodynamically stable. The patient remains in atrial fibrillation. The patient has difficulties with swallowing and he failed a swallow evaluation yesterday. CAT scan of the brain that was repeated yesterday showed an evolving stroke with some small mass effect and an area of hemorrhagic transformation which remains essentially stable. 2 acute hypoxic respiratory failure, off BiPAP currently on 6 L of oxygen by nasal cannula 3 atrial fibrillation with rapid ventricular and the rate is under better control and currently is off the Cardizem drip 4 coronary artery disease with previous carotid bypass surgery 5 previous history of TIA 6 previous history of left frontal CVA 7 hypertension 8 hyperlipidemia 9 previous history of coronary artery bypass surgery in 2002 10 suspected left lower lobe aspiration pneumonia 11 dysphagia secondary to above Plan Repeat swallow evaluation. May need a PEG tube at a later stage for enteral nutritional support. Continue same antibiotic coverage. Cardizem for rate control in regards to her atrial fibrillation. Aspiration precautions. Neuro checks. Keep the patient off aspirin for now. No anticoagulations. We'll follow with keep the patient ICU for another 24 hours. We'll continue to follow.
--- NOTE | 2018-06-16 14:25 | FL ---
EXAMINATION TYPE: FL barium swallow w video DATE OF EXAM: 06/16/2018 MODIFIED SWALLOW / DEGLUTITION STUDY CLINICAL HISTORY: Dysphagia. Rule out aspiration. TECHNIQUE: Deglutition study is performed utilizing thin liquid barium, honey and nectar thick liqui d barium, and barium thick capsule sauce. A total of 3 minutes 31 seconds of fluoroscopic time was ut ilized during procedure. 0 images are saved. COMPARISON: None. FINDINGS: The oral and pharyngeal phases show delay in initiation with majority of modalities tested. Poor epiglottis inversion is seen. There is penetration and aspiration with less viscous modalities including thin liquid barium and nectar thick liquid barium. Some mild penetration with honey thick b arium is noted. No penetration or aspiration observed with barium thick applesauce. Moderate pharynge al residue are identified more prominent with more both viscous modalities. IMPRESSION: Aspiration with less viscous modalities. Poor initiation and propagation noted. Moderate residuals present. Please refer to speech therapist notes for further details if necessary.
[2018-06-16 18:06] LABS: Glucose,Whole Blood 196 mg/dL (75-99)
[2018-06-16] MEDS: ATORVASTATIN 80 MG TAB PO SCH (20:22)
--- NOTE | 2018-06-16 22:07 | P.PN ---
Subjective Progress Note Date: 06/16/18 This patient is a 77-year-old right-handed white male who was seen in neurology consultation yesterday for symptoms of left-sided weakness and possible stroke. Patient apparently was outdoors and had gone out to his mailbox and was found collapsed there by a neighbor. He was brought into the emergency room and [facility] yesterday for further evaluation. He underwent a computed tomography scan of the brain which revealed degenerative changes and nonspecific white matter changes with possible remote ischemia. There was no evidence of any sizable intraparenchymal hemorrhage. He also underwent a CTA angiogram of the head and neck which came back negative for any evidence of significant stenosis and/or aneurysm or dissection. The patient was subsequently admitted to the selective care floor where he was seen in neurology consultation yesterday. His initial evaluation in the emergency room was performed by Dr. Glover. He was not a candidate for TPA even though his NIH stroke scale at the time was 10.0. He was admitted for further evaluation of possible evolving stroke. Yesterday's neurological examination revealed him to have significant left-sided hemiplegia. He was recommended to undergo a MRI of the brain as well as MRI of the lumbar spine. According to the ICU nursing staff the patient went into slight respiratory distress with pulmonary hypertension as well as new onset of atrial fibrillation. He was started on a Cardizem drip and transferred to the intensive care unit very early this morning. Apparently yesterday he did have a temperature of 100.5 at 4 AM and 101.9 at 5:54 AM which is noted by the nursing staff. Patient was given Tylenol as well as blood cultures drawn. The patient was then transferred to the intensive care unit and was placed on BiPAP. He was having some difficulty with his breathing at the time. Dr. Larsen evaluated the patient early this morning and recommended a computed tomography scan of the brain to be done. CAT scan of the brain was completed late this afternoon at 4:25 PM. The final report on this CAT scan from this afternoon revealed a large area of acute right MCA territory infarction with small focal hemorrhages. Mass effect upon the right frontal horn was seen without midline shift at this time. Dr. Larsen had a long discussion with the patient's daughter in the ICU today. It was decided to change his CODE STATUS to DO NOT RESUSCITATE. This evening on rounds we did have a long discussion with the daughter who was at bedside in the ICU. We updated her on all of his neurological findings and the most recent CAT scan of the brain. Review of the CAT scan does reveal 2 areas of hemorrhage within the area of infarction. We have recommended that a follow-up CAT scan of the brain be done tomorrow for follow-up and to monitor for any evidence of hemorrhagic transformation of the stroke. The daughter is aware of his very guarded condition and the findings of hemorrhage. Since he has now been made DO NOT RESUSCITATE status she does not wish to pursue any transfer this patient to a neurointensive care unit or neurosurgical ICU. We will continue supportive care for the patient in the ICU at this time. Patient's daughter is fully aware of his very guarded condition given the findings on his CAT scan of the brain performed this afternoon. As noted we will have a follow- up CAT scan done tomorrow for monitoring the progression of his stroke. This was all discussed today at length with the daughter who is at bedside. All of her questions were answered. She is aware of his very guarded condition. The patient was also seen by Dr. Romero from infectious disease today and he has placed him on clindamycin and Fortaz. There is some concern for possibility of septic emboli from endocarditis and we are awaiting the final report of his echocardiogram study that was done today. His current antibiotics according to Dr. Romero would cover for most forms of endocarditis. We will await the final echocardiogram results however before discussing any further treatment options for this patient. Patient was able to have echocardiogram study done which was read out today. There is no evidence to suggest endocarditis. Cardiology has discontinued his Cardizem drip and recommend no anticoagulation. Overall his neurological status remains stable. He is moving his right side very easily and does seem to answer simple questions. The patient is much more awake today in the intensive care unit. He is currently resting with BiPAP in place. His speech is much improved and he is much more alert as compared to yesterday. We will start him on Decadron as there is some degree of vasogenic edema surrounding the area of infarction. The patient underwent a repeat computed tomography scan of the brain today. This is a follow-up study to monitor progression of his large right MCA stroke with hemorrhage. The report of the CAT scan done today reveals some evolving changes with greater hypodensity involving the right MCA territory infarct. Associated intraparenchymal hematoma shows acute and subacute density and stable in size at 2.8 cm. Associated mass effect with slight asymmetric flattening of the right lateral ventricle with slight subfalcine herniation and slight leftward midline shift of 4 mm versus 6 mm previously. Overall the CAT scan remains stable. We did discuss his findings today with the patient at length. This was also mentioned earlier in the day to his daughter who is at bedside in the ICU. We will continue close monitoring of his neurological status in the intensive care unit. He still remains critical and we will need to continue with very close neuro checks for him given the extent of his stroke. There is no evidence to suggest hemorrhagic transformation of his stroke at this time. The patient is off of BiPAP today. He is much more awake and alert and answering questions appropriately. There are episodes of slight confusion according to the ICU nurse. His speech still is slightly slurred. He underwent a repeat swallow study today and failed on his assessment. He will be considered for possible PEG tube placement. We are recommending a follow-up computed tomography scan of the brain to be done tomorrow morning. We will continue close neurological follow-up with this patient in the intensive care unit. So overall prognosis at this time remains guarded. Objective - Vital Signs Vital signs: Vital Signs Temp 97.6 F 06/16/18 16:00 Pulse 72 06/16/18 20:20 Resp 25 H 06/16/18 18:00 BP 141/61 06/16/18 18:00 Pulse Ox 98 06/16/18 18:00 Intake & Output 06/16/18 06/16/18 06/17/18 06:59 18:59 06:59 Intake Total 1809.226 9190 Output Total 482 465 Balance 867.000 605 Weight 74.4 kg 74.4 kg Intake: IV 1260 1020 Clindamycin 600 mg In 100 100 Dextrose 5% in Water 50 ml @ 50 mls/hr IVPB Q8HR [facility] Rx#:[id number] Dextrose 5% in Water 1, 660 720 000 ml @ 60 mls/hr IV . [id number] [facility] Rx#:[id number] Potassium Chloride 10 meq 400 100 In Water For Injection 1 100ml.bag @ 100 mls/hr IVPB Q1H [facility] Rx#: [id number] cefTAZidime 2 gm In 100 100 Sodium Chloride 0.9% 100 ml @ 100 mls/hr IVPB Q8HR [facility] Rx#:[id number] Intake, IV Titration 89.000 50 Amount Diltiazem 50 mg In Sodium 89.000 50 Chloride 0.9% 40 ml @ 10 MG/HR 10 mls/hr IV .Q5H [facility] Rx#:[id number] Output: Urine 482 465 Other: Voiding Method Indwelling Catheter Indwelling Catheter - Exam Physical examination: PHYSICAL EXAMINATION: Patient is resting comfortably in bed. The patient is off of BiPAP today. VITAL SIGNS: Blood pressure is [141/61]. Heart rate is [68]. Respiration is [25] . Temperature is [97.7]. HEENT: Head is atraumatic, neck is supple, there were no carotid bruits. CHEST: Lungs are clear to auscultation and percussion. CARDIAC: S1, S2 normal rate and rhythm. There is no murmur. ABDOMEN: Soft and nontender. Bowel sounds are present. EXTREMITIES: There is no pedal edema. Peripheral pulses are present. Neurological examination: Patient is examined today in the intensive care unit. He does follow some simple commands. The patient is much more awake and alert today as compared to yesterday. He is noted to be moving only his right side on exam at this time. He does follow simple commands. His memory and intellectual functions are slightly impaired. Cranial nerve examination: Cranial nerves II through XII are grossly intact. He has a left upper motor neuron facial weakness pattern. Motor examination: Patient has a left-sided hemiplegic findings in both upper and lower extremity. He does withdraw to painful stimuli in the left lower extremity. Muscle tone and strength is normal on his right side. Sensory examination: Patient does withdraw to painful stimuli. Deep tendon reflexes: The DTRs are 1+ and symmetric. Plantar responses flexor on the right and extensor on the left. Coordination and gait cannot be assessed in this patient at this time. - Labs CBC & Chem 7: 06/16/18 04:30 06/16/18 04:30 Labs: Abnormal Lab Results - Last 24 Hours (Table) 06/16/18 06/16/18 06/16/18 Range/Units 00:56 04:30 04:30 WBC 12.7 H (3.8-10.6) k/uL RBC 3.84 L (4.30-5.90) m/uL Hgb 11.7 L (13.0-17.5) gm/dL Hct 35.9 L (39.0-53.0) % Neutrophils # 11.7 H (1.3-7.7) k/uL Lymphocytes # 0.4 L (1.0-4.8) k/uL Chloride 108 H (98-107) mmol/L Carbon Dioxide 21 L (22-30) mmol/L BUN 38 H (9-20) mg/dL Creatinine 1.41 H (0.66-1.25) mg/dL Glucose 118 H (74-99) mg/dL POC Glucose (mg/dL) 201 H (75-99) mg/dL Magnesium 2.4 H (1.6-2.3) mg/dL 06/16/18 06/16/18 06/16/18 Range/Units 06:11 11:59 18:04 WBC (3.8-10.6) k/uL RBC (4.30-5.90) m/uL Hgb (13.0-17.5) gm/dL Hct (39.0-53.0) % Neutrophils # (1.3-7.7) k/uL Lymphocytes # (1.0-4.8) k/uL Chloride (98-107) mmol/L Carbon Dioxide (22-30) mmol/L BUN (9-20) mg/dL Creatinine (0.66-1.25) mg/dL Glucose (74-99) mg/dL POC Glucose (mg/dL) 171 H 192 H 196 H (75-99) mg/dL Magnesium (1.6-2.3) mg/dL Microbiology - Last 24 Hours (Table) 06/13/18 05:54 Blood Culture - Preliminary Blood No Growth after 72 hours 06/13/18 05:47 Blood Culture - Preliminary Blood No Growth after 72 hours Assessment and Plan (1) Acute right MCA stroke Current Visit: Yes Status: Acute Code(s): I63.511 - CEREB INFRC D/T UNSP OCCLS OR STENOS OF RIGHT MID CEREB ART SNOMED Code(s): 572142139 (2) Coronary artery disease involving coronary bypass graft Current Visit: Yes Status: Acute Code(s): I25.810 - ATHEROSCLEROSIS OF CABG W/O ANGINA PECTORIS SNOMED Code(s): 853784655 (3) Hyperlipidemia Current Visit: Yes Status: Acute Code(s): E78.5 - HYPERLIPIDEMIA, UNSPECIFIED SNOMED Code(s): 95122438 (4) Dysphagia Current Visit: Yes Status: Acute Code(s): R13.10 - DYSPHAGIA, UNSPECIFIED SNOMED Code(s): 02828171 (5) Hypertension Current Visit: Yes Status: Acute Code(s): I10 - ESSENTIAL (PRIMARY) HYPERTENSION SNOMED Code(s): 25324843 Plan: This patient is a 77-year-old right-handed white male who was initially admitted to hospital with findings of acute left-sided hemiplegia. His initial computed tomography scan of the brain in the emergency room revealed a old left frontal lobe infarction. No other new changes were noted. He was found to have new onset of atrial fibrillation during this admission. The patient had follow-up computed tomography scan of the brain done today the results of which are noted above. There is stability in terms of the intraparenchymal hematoma in the area of the right MCA infarct. There was no evidence of hemorrhagic transformation. There was slight subfalcine herniation with slight leftward midline shift of 4 mm versus 6 mm previously. The patient is to continue on IV Decadron at this time. Clinically he is showing improvement in his mental status today as compared to yesterday. He is much more awake and alert and is conversant with family members at bedside. His case was discussed at length with the patient's daughter at bedside yesterday. We will update her on the follow-up CAT scan results tomorrow. At this point he is much more awake and alert and mentally seems to be competent. He underwent a swallow evaluation today but failed. He will most likely need a PEG tube placement. We are recommending a follow-up computed tomography scan of the brain to be done tomorrow morning for comparison. We will continue aggressive's management of his stroke condition at this time. His overall prognosis remains guarded. We will continue close neurological follow-up of this patient in the intensive care unit.
[2018-06-17] MEDS: DILTIAZEM 50 MG in SODIUM CHLORIDE 0.9% 40 ML IV SCH ×5 (00:42→19:59)
[2018-06-17] MEDS: CLINDAMYCIN 600 MG in DEXTROSE 5% IN WATER 50 ML IVPB SCH ×6 (00:46→15:30)
[2018-06-17] MEDS: INSULIN ASPART 100 UNIT/ML 1 ML 10 ML VIAL SQ SCH ×4 (00:50→18:33)
[2018-06-17 00:51] LABS: Glucose,Whole Blood 217 mg/dL (75-99)
[2018-06-17] MEDS: DEXAMETHASONE SOD PHOSPHATE 4 MG/ML 1 ML VIAL IV SCH ×4 (04:47→20:42)
[2018-06-17] MEDS: hydrALAZINE HCL 20 MG/ML 1 ML VIAL IVP PRN ×2 (05:07→13:54)
[2018-06-17 05:25] LABS: Basophils % (A) 0 %; Eosinophils % (A) 0 %; HCT 36.5 % (39.0-53.0); HGB 11.4 gm/dL (13.0-17.5); Lymphocytes # (A) 0.5 k/uL (1.0-4.8); Lymphocytes % (A) 4 %; MCHC 31.2 g/dL (31.0-37.0); MCV 96.3 fL (80.0-100.0); Mean Platelet Volume 8.4; Monocytes # (A) 0.5 k/uL (0-1.0); Monocytes % (A) 4 %; Neutrophils # (A) 9.8 k/uL (1.3-7.7); Neutrophils % (A) 90 %; Platelet Count 150 k/uL (150-450); RBC 3.79 m/uL (4.30-5.90); RDW 13.6 % (11.5-15.5); WBC 10.9 k/uL (3.8-10.6)
[2018-06-17 05:36] LABS: Calcium 8.6 mg/dL (8.4-10.2); Magnesium 2.3 mg/dL (1.6-2.3); Phosphorus 5.1 mg/dL (2.5-4.5); Potassium 4.4 mmol/L (3.5-5.1)
--- NOTE | 2018-06-17 06:55 | XR ---
EXAMINATION TYPE: XR chest 1V DATE OF EXAM: 06/17/2018 HISTORY: SOB. REFERENCE: Previous study dated 06/16/2018. FINDINGS: There are bibasilar infiltrates. The heart is not enlarged. Pleural spaces are clear. IMPRESSION: BIBASILAR INFILTRATES, LIKELY REPRESENTING ATELECTASIS.
[2018-06-17] MEDS: IPRATROPIUM-ALBUTEROL 3 ML NEB INHALATION PRN ×3 (06:58→17:15)
[2018-06-17 07:17] LABS: Glucose,Whole Blood 274 mg/dL (75-99)
--- NOTE | 2018-06-17 08:06 | P.PN ---
Subjective Progress Note Date: 06/17/18 77-year-old male patient, known history of coronary artery disease with previous bypass surgery in addition to history of hypertension and hyperlipidemia, came into the hospital after he was found to be on the floor by a bystander. The patient apparently in the morning went up and checked on his mailbox and he collapsed on the floor without having to pass out. He was on the floor for probably an hour where he was found by a bystander and the patient was brought into the emergency department. The patient was seen by emergency physicians and the patient was evaluated for a stroke. The NIH score scale was 10. This stroke intervention this was contacted and the patient had a computed tomography scan of the brain, a CT angiogram of the head and neck was done and was negative. 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 The patient has been taking aspirin a regular basis. He has had previous history of TIA back in 2014. He was not found to be a thrombolytic candidate. He got admitted to the floor. Upon initial evaluation by our neurologist, the patient was found to have left-sided weakness and it was obvious that the patient had a evaluation of a right MCA distribution CVA. The patient was moved to the floor. The patient continued to show signs of left-sided hemiplegia. MRI of the brain was recommended Earlier this morning, the patient became short of breath. He was found to be in acute respiratory distress. The emergency team was again activated. The patient was found to be in atrial fibrillation with rapid ventricular response and his artery was in the 120 to 1:30 range. The patient became progressively more hypoxic and short of breath. At 6:00 chest x-ray was done and it showed left basilar infiltration without signs of any heart failure. Nevertheless the patient continued to be profoundly short of breath and tachypneic and his respiratory rate was in the mid 30s going up to the 40 times an hour range. Blood gases was done that showed a pH of 7.48 with a pCO2 of 26 and pO2 of 52. At that time the patient was started on a BiPAP at a pressure of 10/5 cm of water and the patient was brought into the intensive care unit. He is currently on a BiPAP with an FiO2 of 60%. No reported aspiration. He was given a dose of Lasix and he has already produced more than 600 mL of urine output. He still struggling with breathing despite being on a BiPAP. He is pulling more than 1000cc on the BiPAP. He is on no anticoagulants for now. No previous history of DVT or pulmonary embolism. No swelling in lower extremities. Lactic acid level is at 2.6. No fever. Currently the patient on IV Cardizem for rate control at family grams an hour. On 06/15/2018, I'm seeing this patient for a follow-up. This morning he is off the BiPAP is on oxygen at 15 L high flow. He was taken off the BiPAP this morning. His chest x-ray showing a left lower lobe consolidation and the patient is currently on a combination of antibiotics using a combination of Fortaz and clindamycin. He has a weak congested cough. Unable to bring up much sputum. Neurologically is awake. Is following commands and answering questions. He has left facial weakness. He has hemiplegia on the left upper and left lower extremity. A follow-up CAT scan of the head yesterday showed a large CVA along the MCA distribution and the patient had a early hemorrhagic spots measuring 9 mm in size affecting an area of focal hemorrhage. Based on this, nontender, the patient was offered. The patient's cardiac rhythm is still in atrial fibrillation at the rate is under better control and the patient was on Cardizem drip yesterday and currently is off the Cardizem drip. Hemodynamically stable. Lasix has been placed on hold for now. Neurologist on the case. The patient will have a follow-up CAT scan of the brain today. Meanwhile, the patient is much more alert and awake compared to yesterday. His breathing is less labored. He is off the BiPAP as mentioned. FiO2 is being gradually weaned off. His cough is weak and congested as mentioned. He is nothing by mouth. 06/16/2018, the patient is being seen for a follow-up. The patient was taken again off the BiPAP and currently is on oxygen 6 L per minute nasal cannula maintaining a saturation above 90%. Calm and comfortable. Nonacute distress. Awake. Communicating. He has left facial weakness. Has left-sided hemiplegia. A follow-up CAT scan of the head was done yesterday and showed a stable hemorrhagic focus within a evolving right MCA distribution stroke. The patient is nothing by mouth. The patient failed a swallow evaluation yesterday and this will be repeated again today. Possibly may need a modified barium swallow. Otherwise, he is afebrile. White cell count is at 12.7. The patient' s creatinine is at 1.4. He is still in atrial fibrillation and Cardizem is being utilized on and off in the form of the drip for better rate control. Echocardiogram was done and the patient has a preserved LV function and there is no valvular abnormalities. No fever. No aspiration. No open wounds or sores. No skin rashes. No other significant events overnight. His cough is weak as mentioned earlier. 02/14/2018 the patient is being seen in follow-up in the intensive care unit. This morning I see him a bit more confused. A follow-up CAT scan will be done. No improvement at all in terms of the left-sided hemiplegia. The patient also has left facial weakness. He is communicating. His speech is a bit garbled. His cough is weak. He failed a swallow evaluation twice and the patient will ultimately need a PEG tube insertion for nutritional support. No nausea. No vomiting. No abdominal pain. Hemodynamically he converted back into sinus rhythm. He is having an elevated blood pressure and for that reason he was given IV hydralazine pushes 10 mg every 6 hours for systolic above 160. He was also started on a clonidine patch today. No fever. Renal function stable with a creatinine of 1.5. Results of the blood work shows a mild component of non-anion gap metabolic acidosis. Objective - Vital Signs Vital signs: Vital Signs Temp 97.9 F 06/17/18 04:00 Pulse 81 06/17/18 07:25 Resp 38 H 06/17/18 07:00 BP 170/69 06/17/18 07:00 Pulse Ox 98 06/17/18 07:00 Intake & Output 06/16/18 06/17/18 06/17/18 18:59 06:59 18:59 Intake Total 1070 860 60 Output Total 465 462 50 Balance 605 398 10 Weight 74.4 kg 76.5 kg Intake: IV 1020 860 60 Clindamycin 600 mg In 100 100 Dextrose 5% in Water 50 ml @ 50 mls/hr IVPB Q8HR [facility] Rx#:[id number] Dextrose 5% in Water 1, 720 660 60 000 ml @ 60 mls/hr IV . [id number] [facility] Rx#:[id number] Potassium Chloride 10 meq 100 In Water For Injection 1 100ml.bag @ 100 mls/hr IVPB Q1H [facility] Rx#: [id number] cefTAZidime 2 gm In 100 100 Sodium Chloride 0.9% 100 ml @ 100 mls/hr IVPB Q8HR [facility] Rx#:[id number] Intake, IV Titration 50 Amount Diltiazem 50 mg In Sodium 50 Chloride 0.9% 40 ml @ 10 MG/HR 10 mls/hr IV .Q5H [facility] Rx#:[id number] Output: Urine 465 462 50 Other: Voiding Method Indwelling Catheter Indwelling Catheter - Exam Gen. appearance the patient is currently comfortable on 2 L of oxygen by nasal cannula. His facial asymmetry with left facial weakness. He has a weak cough. At times he grimaces and he looks miserable. He is unable to move the left side of the body. More stiffness is noted on the left upper and left lower extremity. He is speaking is a bit garbled. He talks yet obviously is confused on today's evaluation. Head exam was generally normal. There was no scleral icterus or corneal arcus. Mucous membranes were moist. Facial asymmetry with left facial weakness Neck was supple and without jugular venous distension, thyromegaly, or carotid bruits. Carotids were easily palpable bilaterally. There was no adenopathy. Lungs sounds are diminished and the patient is scattered rhonchi heard throughout the lung his bilaterally and bilateral crackling the lung bases. Few scattered expiratory wheezes are also appreciated. Heart sounds are irregular, tachycardic, possible sinus on the patient's sternum is stable clean and intact at this point in time. Abdominal exam revealed normal bowel sounds. The abdomen was soft, non-tender, and without masses, organomegaly, or appreciable enlargement of the abdominal aorta. Examination of the extremities revealed easily palpable radial, femoral and pedal pulses. There was no cyanosis, clubbing or edema. Neurologically the patient is awake. Following simple commands. There is a preferential gaze to the right upper quadrant of the eyes. The patient has left -sided weakness including left upper and left lower extremity and left facial weakness. Cough is weak. He is able to move his tongue. Pupils are equal and reactive to light around 4 mm in size. There is increased spasticity in the left upper and left lower extremity. Early Babinski signs can be also elicited in the left lower extremity. - Labs CBC & Chem 7: 06/17/18 05:00 06/17/18 05:00 Labs: Abnormal Lab Results - Last 24 Hours (Table) 06/16/18 06/16/18 06/17/18 Range/Units 11:59 18:04 00:50 WBC (3.8-10.6) k/uL RBC (4.30-5.90) m/uL Hgb (13.0-17.5) gm/dL Hct (39.0-53.0) % Neutrophils # (1.3-7.7) k/uL Lymphocytes # (1.0-4.8) k/uL Sodium (137-145) mmol/L Carbon Dioxide (22-30) mmol/L BUN (9-20) mg/dL Creatinine (0.66-1.25) mg/dL Glucose (74-99) mg/dL POC Glucose (mg/dL) 192 H 196 H 217 H (75-99) mg/dL Phosphorus (2.5-4.5) mg/dL 06/17/18 06/17/18 06/17/18 Range/Units 05:00 05:00 07:14 WBC 10.9 H (3.8-10.6) k/uL RBC 3.79 L (4.30-5.90) m/uL Hgb 11.4 L (13.0-17.5) gm/dL Hct 36.5 L (39.0-53.0) % Neutrophils # 9.8 H (1.3-7.7) k/uL Lymphocytes # 0.5 L (1.0-4.8) k/uL Sodium 136 L (137-145) mmol/L Carbon Dioxide 18 L (22-30) mmol/L BUN 52 H (9-20) mg/dL Creatinine 1.55 H (0.66-1.25) mg/dL Glucose 254 H (74-99) mg/dL POC Glucose (mg/dL) 274 H (75-99) mg/dL Phosphorus 5.1 H (2.5-4.5) mg/dL Microbiology - Last 24 Hours (Table) 06/13/18 05:54 Blood Culture - Preliminary Blood No Growth after 72 hours 06/13/18 05:47 Blood Culture - Preliminary Blood No Growth after 72 hours Assessment and Plan Plan: Assessment 1 acute CVA likely involving the right MCA distribution and the patient has left sided hemiplegia. This is most likely an embolic phenomena related to paroxysmal atrial fibrillation. The patient has a area of hemorrhagic transformation within the right MCA CVA. The patient is hemodynamically stable. Neurologically unchanged. Mental status is fluctuating and the patient is a bit more confused on today's evaluation. A follow-up CAT scan is in progress. Meanwhile the patient has failed a swallow evaluation twice and he remains nothing by mouth. 2 acute hypoxic respiratory failure, recovered and currently on 2 L of oxygen by nasal cannula 3 atrial fibrillation and the patient is converted into normal sinus rhythm. 4 coronary artery disease with previous coronary artery bypass surgery 5 previous history of TIA 6 previous history of left frontal CVA 7 hypertension 8 hyperlipidemia 9 previous history of coronary artery bypass surgery in 2002 10 suspected left lower lobe aspiration pneumonia 11 dysphagia secondary to above, and the patient has failed swallow evaluation secondary to significant neurologic impairment post CVA. Plan Keep nothing by mouth. Proceed with a GI consultation for a PEG tube insertion. Clonidine patch for blood pressure control. Hydralazine on an as- needed basis for a systolic blood pressure above 160. May be able to discontinue the Fortaz and would like to discuss this with ID. Continue the clindamycin. Continue IV Protonix. Repeat CAT scan today. Neurologist on the case. Unfortunately the patient has developed significant neurologic impairment and his mental status is still fluctuating and he has significant paresis in the left upper and left lower extremity and dysphagia or related to a massive CVA along the right MCA distribution. Neurologist on the case. We' ll continue to follow. Long-term prognosis poor as mentioned to the family.
[2018-06-17] MEDS: cloNIDine 0.2 MG/24HR PATCH TRANSDERM SCH (08:44)
[2018-06-17] MEDS: PANTOPRAZOLE 40 MG/10 ML VIAL IV SCH (08:46)
--- NOTE | 2018-06-17 10:31 | CT ---
EXAMINATION TYPE: CT brain wo con DATE OF EXAM: 06/17/2018 COMPARISON: Previous study dated 06/15/2018 HISTORY: Follow up CVA CT DLP: 1145.1 mGycm Automated exposure control for dose reduction was used. FINDINGS: There is an evolving right MCA infarct. There is associated hemorrhagic change approximately the same as previously measured 1.3 cm. There is associated mass effect with effacement of the right lateral ventricle and approximately 4.2 mm of subfalcine shift. There is a second area of decreased attenuati on adjacent to the frontal horn of the left lateral ventricle. This is unchanged from the previous st udy. Visualized portions of the paranasal sinuses and mastoids are clear. The bony calvarium is intact. IMPRESSION: 1. EVOLVING RIGHT MCA INFARCT WITH A SMALL HEMORRHAGIC COMPONENT. 2. EVIDENCE OF AN OLD LEFT FRONTAL INFARCT.
[2018-06-17 12:00] LABS: Glucose,Whole Blood 217 mg/dL (75-99)
[2018-06-17] MEDS: DEXTROSE 5% IN WATER 1,000 ML IV SCH (13:53)
--- NOTE | 2018-06-17 16:21 | P.PN ---
Subjective Progress Note Date: 06/17/18 This patient is a 77-year-old right-handed white male who was seen in neurology consultation yesterday for symptoms of left-sided weakness and possible stroke. Patient apparently was outdoors and had gone out to his mailbox and was found collapsed there by a neighbor. He was brought into the emergency room and [facility] yesterday for further evaluation. He underwent a computed tomography scan of the brain which revealed degenerative changes and nonspecific white matter changes with possible remote ischemia. There was no evidence of any sizable intraparenchymal hemorrhage. He also underwent a CTA angiogram of the head and neck which came back negative for any evidence of significant stenosis and/or aneurysm or dissection. The patient was subsequently admitted to the selective care floor where he was seen in neurology consultation yesterday. His initial evaluation in the emergency room was performed by Dr. Glover. He was not a candidate for TPA even though his NIH stroke scale at the time was 10.0. He was admitted for further evaluation of possible evolving stroke. Yesterday's neurological examination revealed him to have significant left-sided hemiplegia. He was recommended to undergo a MRI of the brain as well as MRI of the lumbar spine. According to the ICU nursing staff the patient went into slight respiratory distress with pulmonary hypertension as well as new onset of atrial fibrillation. He was started on a Cardizem drip and transferred to the intensive care unit very early this morning. Apparently yesterday he did have a temperature of 100.5 at 4 AM and 101.9 at 5:54 AM which is noted by the nursing staff. Patient was given Tylenol as well as blood cultures drawn. The patient was then transferred to the intensive care unit and was placed on BiPAP. He was having some difficulty with his breathing at the time. Dr. Larsen evaluated the patient early this morning and recommended a computed tomography scan of the brain to be done. CAT scan of the brain was completed late this afternoon at 4:25 PM. The final report on this CAT scan from this afternoon revealed a large area of acute right MCA territory infarction with small focal hemorrhages. Mass effect upon the right frontal horn was seen without midline shift at this time. Dr. Larsen had a long discussion with the patient's daughter in the ICU today. It was decided to change his CODE STATUS to DO NOT RESUSCITATE. This evening on rounds we did have a long discussion with the daughter who was at bedside in the ICU. We updated her on all of his neurological findings and the most recent CAT scan of the brain. Review of the CAT scan does reveal 2 areas of hemorrhage within the area of infarction. We have recommended that a follow-up CAT scan of the brain be done tomorrow for follow-up and to monitor for any evidence of hemorrhagic transformation of the stroke. The daughter is aware of his very guarded condition and the findings of hemorrhage. Since he has now been made DO NOT RESUSCITATE status she does not wish to pursue any transfer this patient to a neurointensive care unit or neurosurgical ICU. We will continue supportive care for the patient in the ICU at this time. Patient's daughter is fully aware of his very guarded condition given the findings on his CAT scan of the brain performed this afternoon. As noted we will have a follow- up CAT scan done tomorrow for monitoring the progression of his stroke. This was all discussed today at length with the daughter who is at bedside. All of her questions were answered. She is aware of his very guarded condition. The patient is much more awake and alert today in the intensive care unit. His daughter is at bedside and she concurs that there is been significant improvement in his overall mental status. Patient was sent for a follow-up computed tomography scan of the brain this morning. CAT scan reveals evolving right MCA infarct with a small hemorrhagic component. 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 We reviewed the CAT scan films and the official radiology report today with the daughter who was at bedside. She is aware of his current neurological status and findings of his CAT scan that were done today. The patient underwent 2 swallow studies yesterday at bedside and failed both. He is going to be considered for possible PEG tube placement on Tuesday. The patient is awake and alert and is answering some simple questions. He still has hemiplegia on his left side. Hemodynamically the patient did convert back into sinus rhythm. He was taken off of Cardizem drip today. He has not had any signs of sepsis or fever recently. Renal function is stable with his creatinine staying at 1.5. Overall the patient seems to be holding his own quite well despite this large stroke. We will continue close neurological follow-up with this patient in the intensive care unit. So overall prognosis remains guarded and this was discussed today at length with the patient's daughter who was at bedside in the ICU. Objective - Vital Signs Vital signs: Vital Signs Temp 97.6 F 06/17/18 12:00 Pulse 74 06/17/18 15:00 Resp 27 H 06/17/18 15:00 BP 145/82 06/17/18 15:00 Pulse Ox 95 06/17/18 15:00 Intake & Output 06/16/18 06/17/18 06/17/18 18:59 06:59 18:59 Intake Total 1070 860 540 Output Total 465 462 565 Balance 605 398 -25 Weight 74.4 kg 76.5 kg Intake: IV 1020 860 540 Clindamycin 600 mg In 100 100 Dextrose 5% in Water 50 ml @ 50 mls/hr IVPB Q8HR [facility] Rx#:[id number] Dextrose 5% in Water 1, 720 660 540 000 ml @ 60 mls/hr IV . [id number] [facility] Rx#:[id number] Potassium Chloride 10 meq 100 In Water For Injection 1 100ml.bag @ 100 mls/hr IVPB Q1H [facility] Rx#: [id number] cefTAZidime 2 gm In 100 100 Sodium Chloride 0.9% 100 ml @ 100 mls/hr IVPB Q8HR [facility] Rx#:[id number] Intake, IV Titration 50 Amount Diltiazem 50 mg In Sodium 50 Chloride 0.9% 40 ml @ 10 MG/HR 10 mls/hr IV .Q5H [facility] Rx#:[id number] Output: Urine 465 462 565 Other: Voiding Method Indwelling Catheter Indwelling Catheter Indwelling Catheter - Exam Physical examination: PHYSICAL EXAMINATION: Patient is resting comfortably in bed. The patient is off of BiPAP today. VITAL SIGNS: Blood pressure is [145/82]. Heart rate is [74]. Respiration is [27] . Temperature is [97.8]. HEENT: Head is atraumatic, neck is supple, there were no carotid bruits. CHEST: Lungs are clear to auscultation and percussion. CARDIAC: S1, S2 normal rate and rhythm. There is no murmur. ABDOMEN: Soft and nontender. Bowel sounds are present. EXTREMITIES: There is no pedal edema. Peripheral pulses are present. Neurological examination: Patient is examined today in the intensive care unit. He does follow some simple commands. The patient is much more awake and alert today as compared to yesterday. He is noted to be moving only his right side on exam at this time. He does follow simple commands. His memory and intellectual functions are slightly impaired. Cranial nerve examination: Cranial nerves II through XII are grossly intact. He has a left upper motor neuron facial weakness pattern. Motor examination: Patient has a left-sided hemiplegic findings in both upper and lower extremity. He does withdraw to painful stimuli in the left lower extremity. Muscle tone and strength is normal on his right side. Sensory examination: Patient does withdraw to painful stimuli. Deep tendon reflexes: The DTRs are 1+ and symmetric. Plantar responses flexor on the right and extensor on the left. Coordination and gait cannot be assessed in this patient at this time. - Labs CBC & Chem 7: 06/17/18 05:00 06/17/18 05:00 Labs: Abnormal Lab Results - Last 24 Hours (Table) 06/16/18 06/17/18 06/17/18 Range/Units 18:04 00:50 05:00 WBC 10.9 H (3.8-10.6) k/uL RBC 3.79 L (4.30-5.90) m/uL Hgb 11.4 L (13.0-17.5) gm/dL Hct 36.5 L (39.0-53.0) % Neutrophils # 9.8 H (1.3-7.7) k/uL Lymphocytes # 0.5 L (1.0-4.8) k/uL Sodium (137-145) mmol/L Carbon Dioxide (22-30) mmol/L BUN (9-20) mg/dL Creatinine (0.66-1.25) mg/dL Glucose (74-99) mg/dL POC Glucose (mg/dL) 196 H 217 H (75-99) mg/dL Phosphorus (2.5-4.5) mg/dL 06/17/18 06/17/18 06/17/18 Range/Units 05:00 07:14 11:59 WBC (3.8-10.6) k/uL RBC (4.30-5.90) m/uL Hgb (13.0-17.5) gm/dL Hct (39.0-53.0) % Neutrophils # (1.3-7.7) k/uL Lymphocytes # (1.0-4.8) k/uL Sodium 136 L (137-145) mmol/L Carbon Dioxide 18 L (22-30) mmol/L BUN 52 H (9-20) mg/dL Creatinine 1.55 H (0.66-1.25) mg/dL Glucose 254 H (74-99) mg/dL POC Glucose (mg/dL) 274 H 217 H (75-99) mg/dL Phosphorus 5.1 H (2.5-4.5) mg/dL Microbiology - Last 24 Hours (Table) 06/13/18 05:54 Blood Culture - Preliminary Blood No Growth after 96 hours 06/13/18 05:47 Blood Culture - Preliminary Blood No Growth after 96 hours Assessment and Plan (1) Acute right MCA stroke Current Visit: Yes Status: Acute Code(s): I63.511 - CEREB INFRC D/T UNSP OCCLS OR STENOS OF RIGHT MID CEREB ART SNOMED Code(s): 843299300 (2) Coronary artery disease involving coronary bypass graft Current Visit: Yes Status: Acute Code(s): I25.810 - ATHEROSCLEROSIS OF CABG W/O ANGINA PECTORIS SNOMED Code(s): 367783808 (3) Hyperlipidemia Current Visit: Yes Status: Acute Code(s): E78.5 - HYPERLIPIDEMIA, UNSPECIFIED SNOMED Code(s): 65678472 (4) Dysphagia Current Visit: Yes Status: Acute Code(s): R13.10 - DYSPHAGIA, UNSPECIFIED SNOMED Code(s): 30841574 (5) Hypertension Current Visit: Yes Status: Acute Code(s): I10 - ESSENTIAL (PRIMARY) HYPERTENSION SNOMED Code(s): 29006081 Plan: This patient is a 77-year-old right-handed white male who is being followed in the intensive care unit after he suffered a large right MCA stroke with hemorrhagic component. He had a follow-up CAT scan of the brain done today the results of which are noted above. CAT scan remains stable with no evidence of major hemorrhagic transformation of his right MCA stroke. Clinically he is also stable today in the intensive care unit. He is able to recognize his daughter and is been communicating quite easily with her. He does not show any signs of acute confusion at this time. He is currently on IV Decadron for treatment of cerebral edema related to his stroke. We will decrease his Decadron to 6 mg every 4 hours and will continue weaning him slowly off of the Decadron by early next week. He is showing improvement in his CAT scan of the brain films which were reviewed today at length. Films are also reviewed with the patient's daughter at bedside. The patient seems to be doing well but did fail his swallow evaluation last night as well as a day before. He is being considered for PEG tube placement on Tuesday. According to the daughter she is making plans to have the patient complete subacute rehab locally and then will consider transferring the patient to [place] where she is living. At this time we will continue full neurological evaluation and treatment of the patient in the intensive care unit. His overall prognosis at this time remains guarded. He converted back to normal sinus rhythm today and was taken off of his Cardizem drip. We will continue close neurological follow-up with this patient in the intensive care unit. His overall prognosis at this time remains guarded. Case was discussed at length today with the patient's daughter who was at bedside in the ICU. All of her questions were answered. She is aware of for father's guarded condition.
[2018-06-17 18:31] LABS: Glucose,Whole Blood 220 mg/dL (75-99)
[2018-06-17] MEDS: ATORVASTATIN 80 MG TAB PO SCH (19:58)
[2018-06-18 00:13] LABS: Glucose,Whole Blood 188 mg/dL (75-99)
[2018-06-18] MEDS: INSULIN ASPART 100 UNIT/ML 1 ML 10 ML VIAL SQ SCH ×4 (00:14→17:37)
[2018-06-18] MEDS: DEXAMETHASONE SOD PHOSPHATE 4 MG/ML 1 ML VIAL IV SCH ×6 (00:15→20:26)
[2018-06-18] MEDS: CLINDAMYCIN 600 MG in DEXTROSE 5% IN WATER 50 ML IVPB SCH ×6 (00:15→16:36)
[2018-06-18] MEDS: DILTIAZEM 50 MG in SODIUM CHLORIDE 0.9% 40 ML IV SCH ×5 (00:21→20:11)
[2018-06-18] MEDS: hydrALAZINE HCL 20 MG/ML 1 ML VIAL IVP PRN ×3 (00:23→14:09)
[2018-06-18 04:56] LABS: Basophils % (A) 0 %; Eosinophils # (A) 0.1 k/uL (0-0.7); Eosinophils % (A) 0 %; HCT 38.7 % (39.0-53.0); HGB 12.3 gm/dL (13.0-17.5); Lymphocytes # (A) 0.5 k/uL (1.0-4.8); Lymphocytes % (A) 4 %; MCH 29.6 pg (25.0-35.0); MCHC 31.7 g/dL (31.0-37.0); MCV 93.3 fL (80.0-100.0); Mean Platelet Volume 7.7; Monocytes # (A) 0.9 k/uL (0-1.0); Monocytes % (A) 6 %; Neutrophils # (A) 13.1 k/uL (1.3-7.7); Neutrophils % (A) 89 %; Platelet Count 178 k/uL (150-450); RBC 4.15 m/uL (4.30-5.90); RDW 13.8 % (11.5-15.5); WBC 14.8 k/uL (3.8-10.6)
[2018-06-18 05:15] LABS: Calcium 8.5 mg/dL (8.4-10.2); Magnesium 2.5 mg/dL (1.6-2.3); Phosphorus 4.8 mg/dL (2.5-4.5); Potassium 4.3 mmol/L (3.5-5.1)
[2018-06-18 06:27] LABS: Glucose,Whole Blood 225 mg/dL (75-99)
[2018-06-18] MEDS: DEXTROSE 5% IN WATER 1,000 ML IV SCH (06:28)
--- NOTE | 2018-06-18 06:51 | XR ---
EXAMINATION TYPE: XR chest 1V DATE OF EXAM: 06/18/2018 HISTORY: SOB. REFERENCE: Previous study dated 06/17/2018. FINDINGS: There has been a midline sternotomy. Lung volumes are prominent. The lungs are clear. Pleural spaces are clear. The heart is not enlarged. IMPRESSION: PLEASE CORRELATE FOR COPD.
[2018-06-18] MEDS: IPRATROPIUM-ALBUTEROL 3 ML NEB INHALATION PRN (07:24)
[2018-06-18] MEDS: PANTOPRAZOLE 40 MG/10 ML VIAL IV SCH (09:00)
--- NOTE | 2018-06-18 11:22 | P.PN ---
Subjective Progress Note Date: 06/18/18 77-year-old male patient, known history of coronary artery disease with previous bypass surgery in addition to history of hypertension and hyperlipidemia, came into the hospital after he was found to be on the floor by a bystander. The patient apparently in the morning went up and checked on his mailbox and he collapsed on the floor without having to pass out. He was on the floor for probably an hour where he was found by a bystander and the patient was brought into the emergency department. The patient was seen by emergency physicians and the patient was evaluated for a stroke. The NIH score scale was 10. This stroke intervention this was contacted and the patient had a computed tomography scan of the brain, a CT angiogram of the head and neck was done and was negative. 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 The patient has been taking aspirin a regular basis. He has had previous history of TIA back in 2014. He was not found to be a thrombolytic candidate. He got admitted to the floor. Upon initial evaluation by our neurologist, the patient was found to have left-sided weakness and it was obvious that the patient had a evaluation of a right MCA distribution CVA. The patient was moved to the floor. The patient continued to show signs of left-sided hemiplegia. MRI of the brain was recommended Earlier this morning, the patient became short of breath. He was found to be in acute respiratory distress. The emergency team was again activated. The patient was found to be in atrial fibrillation with rapid ventricular response and his artery was in the 120 to 1:30 range. The patient became progressively more hypoxic and short of breath. At 6:00 chest x-ray was done and it showed left basilar infiltration without signs of any heart failure. Nevertheless the patient continued to be profoundly short of breath and tachypneic and his respiratory rate was in the mid 30s going up to the 40 times an hour range. Blood gases was done that showed a pH of 7.48 with a pCO2 of 26 and pO2 of 52. At that time the patient was started on a BiPAP at a pressure of 10/5 cm of water and the patient was brought into the intensive care unit. He is currently on a BiPAP with an FiO2 of 60%. No reported aspiration. He was given a dose of Lasix and he has already produced more than 600 mL of urine output. He still struggling with breathing despite being on a BiPAP. He is pulling more than 1000cc on the BiPAP. He is on no anticoagulants for now. No previous history of DVT or pulmonary embolism. No swelling in lower extremities. Lactic acid level is at 2.6. No fever. Currently the patient on IV Cardizem for rate control at family grams an hour. On 06/15/2018, I'm seeing this patient for a follow-up. This morning he is off the BiPAP is on oxygen at 15 L high flow. He was taken off the BiPAP this morning. His chest x-ray showing a left lower lobe consolidation and the patient is currently on a combination of antibiotics using a combination of Fortaz and clindamycin. He has a weak congested cough. Unable to bring up much sputum. Neurologically is awake. Is following commands and answering questions. He has left facial weakness. He has hemiplegia on the left upper and left lower extremity. A follow-up CAT scan of the head yesterday showed a large CVA along the MCA distribution and the patient had a early hemorrhagic spots measuring 9 mm in size affecting an area of focal hemorrhage. Based on this, nontender, the patient was offered. The patient's cardiac rhythm is still in atrial fibrillation at the rate is under better control and the patient was on Cardizem drip yesterday and currently is off the Cardizem drip. Hemodynamically stable. Lasix has been placed on hold for now. Neurologist on the case. The patient will have a follow-up CAT scan of the brain today. Meanwhile, the patient is much more alert and awake compared to yesterday. His breathing is less labored. He is off the BiPAP as mentioned. FiO2 is being gradually weaned off. His cough is weak and congested as mentioned. He is nothing by mouth. 06/16/2018, the patient is being seen for a follow-up. The patient was taken again off the BiPAP and currently is on oxygen 6 L per minute nasal cannula maintaining a saturation above 90%. Calm and comfortable. Nonacute distress. Awake. Communicating. He has left facial weakness. Has left-sided hemiplegia. A follow-up CAT scan of the head was done yesterday and showed a stable hemorrhagic focus within a evolving right MCA distribution stroke. The patient is nothing by mouth. The patient failed a swallow evaluation yesterday and this will be repeated again today. Possibly may need a modified barium swallow. Otherwise, he is afebrile. White cell count is at 12.7. The patient' s creatinine is at 1.4. He is still in atrial fibrillation and Cardizem is being utilized on and off in the form of the drip for better rate control. Echocardiogram was done and the patient has a preserved LV function and there is no valvular abnormalities. No fever. No aspiration. No open wounds or sores. No skin rashes. No other significant events overnight. His cough is weak as mentioned earlier. 02/14/2018 the patient is being seen in follow-up in the intensive care unit. This morning I see him a bit more confused. A follow-up CAT scan will be done. No improvement at all in terms of the left-sided hemiplegia. The patient also has left facial weakness. He is communicating. His speech is a bit garbled. His cough is weak. He failed a swallow evaluation twice and the patient will ultimately need a PEG tube insertion for nutritional support. No nausea. No vomiting. No abdominal pain. Hemodynamically he converted back into sinus rhythm. He is having an elevated blood pressure and for that reason he was given IV hydralazine pushes 10 mg every 6 hours for systolic above 160. He was also started on a clonidine patch today. No fever. Renal function stable with a creatinine of 1.5. Results of the blood work shows a mild component of non-anion gap metabolic acidosis. On 06/17/2018, Ronny is essentially the same. He is communicating. He has facial asymmetry. He has complete paresis of the left upper and left lower extremity and the left face. The follow-up CAT scan of the brain showed an evolution of the right MCA distribution CVA. Hemodynamically still having episodes of atrial fibrillation alternating with sinus rhythm at the rate is controlled. Blood pressure control. He remains nothing by mouth. He has failed swallow evaluation. I am thinking that he will need a PEG tube insertion with the next 24-48 hours and the family and a daughter are both agreeable. No aspiration. No signs of any respiratory distress. The patient' s right MCA infarct is evolving. There is associated hemorrhagic change which is approximately the same measuring about 1.3 cm in size based on the most recent CAT scan of the brain. There is some mass effect with effacement of the right lateral ventricle with a 4.2 mm. shift Objective - Vital Signs Vital signs: Vital Signs Temp 98.6 F 06/18/18 08:00 Pulse 71 06/18/18 09:00 Resp 32 H 06/18/18 09:00 BP 144/62 06/18/18 09:00 Pulse Ox 91 L 06/18/18 09:00 Intake & Output 06/17/18 06/18/18 06/18/18 18:59 06:59 18:59 Intake Total 820 820 180 Output Total 725 730 350 Balance 95 90 -170 Weight 75.7 kg Intake: IV 720 820 180 Dextrose 5% in Water 1, 720 720 180 000 ml @ 60 mls/hr IV . [id number] [facility] Rx#:[id number] cefTAZidime 2 gm In 100 Sodium Chloride 0.9% 100 ml @ 100 mls/hr IVPB Q8HR [facility] Rx#:[id number] Intake, IV Titration 100 Amount cefTAZidime 2 gm In 100 Sodium Chloride 0.9% 100 ml @ 100 mls/hr IVPB Q12H [facility] Rx#:[id number] Output: Urine 725 730 350 Other: Voiding Method Indwelling Catheter Indwelling Catheter Indwelling Catheter - Exam Gen. appearance the patient is currently comfortable on 2 L of oxygen by nasal cannula. His facial asymmetry with left facial weakness. He has a weak cough. At times he grimaces and he looks miserable. He is unable to move the left side of the body. More stiffness is noted on the left upper and left lower extremity. He is speaking is a bit garbled. He talks yet obviously is confused on today's evaluation. Head exam was generally normal. There was no scleral icterus or corneal arcus. Mucous membranes were moist. Facial asymmetry with left facial weakness Neck was supple and without jugular venous distension, thyromegaly, or carotid bruits. Carotids were easily palpable bilaterally. There was no adenopathy. Lungs sounds are diminished and the patient is scattered rhonchi heard throughout the lung his bilaterally and bilateral crackling the lung bases. Few scattered expiratory wheezes are also appreciated. Heart sounds are irregular, tachycardic, possible sinus on the patient's sternum is stable clean and intact at this point in time. Abdominal exam revealed normal bowel sounds. The abdomen was soft, non-tender, and without masses, organomegaly, or appreciable enlargement of the abdominal aorta. Examination of the extremities revealed easily palpable radial, femoral and pedal pulses. There was no cyanosis, clubbing or edema. Neurologically the patient is awake. Following simple commands. There is a preferential gaze to the right upper quadrant of the eyes. The patient has left -sided weakness including left upper and left lower extremity and left facial weakness. Cough is weak. He is able to move his tongue. Pupils are equal and reactive to light around 4 mm in size. There is increased spasticity in the left upper and left lower extremity. Early Babinski signs can be also elicited in the left lower extremity. - Labs CBC & Chem 7: 06/18/18 04:41 06/18/18 04:41 Labs: Abnormal Lab Results - Last 24 Hours (Table) 06/17/18 06/17/18 06/18/18 Range/Units 11:59 18:29 00:11 WBC (3.8-10.6) k/uL RBC (4.30-5.90) m/uL Hgb (13.0-17.5) gm/dL Hct (39.0-53.0) % Neutrophils # (1.3-7.7) k/uL Lymphocytes # (1.0-4.8) k/uL Chloride (98-107) mmol/L Carbon Dioxide (22-30) mmol/L BUN (9-20) mg/dL Creatinine (0.66-1.25) mg/dL Glucose (74-99) mg/dL POC Glucose (mg/dL) 217 H 220 H 188 H (75-99) mg/dL Phosphorus (2.5-4.5) mg/dL Magnesium (1.6-2.3) mg/dL 06/18/18 06/18/18 06/18/18 Range/Units 04:41 04:41 06:24 WBC 14.8 H (3.8-10.6) k/uL RBC 4.15 L (4.30-5.90) m/uL Hgb 12.3 L (13.0-17.5) gm/dL Hct 38.7 L (39.0-53.0) % Neutrophils # 13.1 H (1.3-7.7) k/uL Lymphocytes # 0.5 L (1.0-4.8) k/uL Chloride 108 H (98-107) mmol/L Carbon Dioxide 21 L (22-30) mmol/L BUN 49 H (9-20) mg/dL Creatinine 1.39 H (0.66-1.25) mg/dL Glucose 171 H (74-99) mg/dL POC Glucose (mg/dL) 225 H (75-99) mg/dL Phosphorus 4.8 H (2.5-4.5) mg/dL Magnesium 2.5 H (1.6-2.3) mg/dL Microbiology - Last 24 Hours (Table) 06/13/18 05:54 Blood Culture - Preliminary Blood No Growth after 120 hours 06/13/18 05:47 Blood Culture - Preliminary Blood No Growth after 120 hours Assessment and Plan Plan: Assessment 1 acute CVA likely involving the right MCA distribution and the patient has left sided hemiplegia. This is most likely an embolic phenomena related to paroxysmal atrial fibrillation. The patient has a area of hemorrhagic transformation within the right MCA CVA. The patient is hemodynamically stable. Neurologically unchanged. Mental status is fluctuating and the patient is a bit more confused on today's evaluation. A follow-up CAT scan showed evolving right MCA infarct with hemorrhagic transformation which remains rather stable measuring about 1.3 cm in size. The patient is significantly impaired neurologically and the patient is having left-sided hemiplegia. Speech is a bit garbled. The patient is able to communicate and follow commands and answer questions. 2 acute hypoxic respiratory failure, recovered and currently on 2 L of oxygen by nasal cannula 3 atrial fibrillation and the patient is converted into normal sinus rhythm. 4 coronary artery disease with previous coronary artery bypass surgery 5 previous history of TIA 6 previous history of left frontal CVA 7 hypertension 8 hyperlipidemia 9 previous history of coronary artery bypass surgery in 2002 10 suspected left lower lobe aspiration pneumonia 11 dysphagia secondary to above, and the patient has failed swallow evaluation secondary to significant neurologic impairment post CVA. Plan The patient would likely need a PEG tube insertion for enteral feeding and nutritional support. Aspiration precautions. Hemodynamic monitoring. We'll continue to follow. Long-term prognosis poor. Neurologist on the case. He may transfer out of the intensive care unit today. Continue fluids with D5 normal saline at the rate of 75 mL as maintenance. May discontinue the IV Fortaz and keep the clindamycin for aspiration
[2018-06-18 12:10] LABS: Glucose,Whole Blood 183 mg/dL (75-99)
[2018-06-18 17:35] LABS: Glucose,Whole Blood 241 mg/dL (75-99)
[2018-06-18] MEDS: ATORVASTATIN 80 MG TAB PO SCH (20:10)
--- NOTE | 2018-06-18 23:41 | PN ---
PROGRESS NOTE DATE OF SERVICE: 06/18/2018. CHIEF COMPLAINT: Right-sided CVA. HISTORY OF PRESENT ILLNESS: This gentleman is still doing fairly well. He is able to converse and follow with both eyes and seems to comprehend, but he is confused. PHYSICAL EXAM: Chest is clear. Cardiac exam is normal. The abdomen is soft, nontender. IMPRESSION: Right-sided cerebrovascular accident. PLAN: Probably move to a regular floor today. MMODL / IJN: [id number] /
[2018-06-19] MEDS: hydrALAZINE HCL 20 MG/ML 1 ML VIAL IVP PRN (01:13)
[2018-06-19] MEDS: DEXAMETHASONE SOD PHOSPHATE 4 MG/ML 1 ML VIAL IV SCH (01:13)
[2018-06-19] MEDS: DEXTROSE 5% IN WATER 1,000 ML IV SCH ×2 (01:13→16:53)
[2018-06-19] MEDS: CLINDAMYCIN 600 MG in DEXTROSE 5% IN WATER 50 ML IVPB SCH ×6 (01:14→17:31)
[2018-06-19] MEDS: INSULIN ASPART 100 UNIT/ML 1 ML 10 ML VIAL SQ SCH ×4 (01:16→17:31)
[2018-06-19 01:18] LABS: Glucose,Whole Blood 216 mg/dL (75-99)
[2018-06-19] MEDS: DILTIAZEM 50 MG in SODIUM CHLORIDE 0.9% 40 ML IV SCH ×5 (01:42→19:41)
[2018-06-19 03:47] LABS: Glucose,Whole Blood 198 mg/dL (75-99)
[2018-06-19 05:31] LABS: Basophils % (A) 0 %; Eosinophils % (A) 0 %; HCT 41.8 % (39.0-53.0); HGB 13.2 gm/dL (13.0-17.5); Lymphocytes # (A) 0.7 k/uL (1.0-4.8); Lymphocytes % (A) 4 %; MCH 30.4 pg (25.0-35.0); MCHC 31.7 g/dL (31.0-37.0); MCV 95.8 fL (80.0-100.0); Mean Platelet Volume 7.9; Monocytes % (A) 7 %; Neutrophils # (A) 12.8 k/uL (1.3-7.7); Neutrophils % (A) 87 %; Platelet Count 181 k/uL (150-450); RBC 4.36 m/uL (4.30-5.90); RDW 13.9 % (11.5-15.5); WBC 14.7 k/uL (3.8-10.6)
[2018-06-19 05:46] LABS: Calcium 8.5 mg/dL (8.4-10.2)
[2018-06-19 05:59] LABS: Glucose,Whole Blood 147 mg/dL (75-99)
[2018-06-19 06:04] LABS: Potassium 4.7 mmol/L (3.5-5.1)
[2018-06-19 06:05] LABS: Magnesium 2.6 mg/dL (1.6-2.3); Phosphorus 4.4 mg/dL (2.5-4.5)
[2018-06-19] MEDS: SODIUM CHLORIDE 0.9% 1,000 ML IV SCH (07:28)
[2018-06-19] MEDS: ceFAZolin 1,000 MG in DEXTROSE/WATER 1 50ML.BAG IVPB SCH (07:28)
[2018-06-19] MEDS: ASPIRIN 300 MG SUPP RECTAL SCH (07:29)
[2018-06-19] MEDS: FUROSEMIDE 10 MG/ML 4 ML VIAL IV SCH (07:29)
[2018-06-19] MEDS: CLOPIDOGREL 75 MG TAB PO SCH (07:29)
[2018-06-19] MEDS: PANTOPRAZOLE 40 MG/10 ML VIAL IV SCH (09:39)
[2018-06-19 10:36] VITALS: BMI 22.6
--- NOTE | 2018-06-19 11:34 | P.PN ---
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 The patient apparently in the morning went up and checked on his mailbox and he collapsed on the floor without having to pass out. He was on the floor for probably an hour where he was found by a bystander and the patient was brought into the emergency department. The patient was seen by emergency physicians and the patient was evaluated for a stroke. The NIH score scale was 10. This stroke intervention this was contacted and the patient had a computed tomography scan of the brain, a CT angiogram of the head and neck was done and was negative. 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 The patient has been taking aspirin a regular basis. He has had previous history of TIA back in 2014. He was not found to be a thrombolytic candidate. He got admitted to the floor. Upon initial evaluation by our neurologist, the patient was found to have left-sided weakness and it was obvious that the patient had a evaluation of a right MCA distribution CVA. The patient was moved to the floor. The patient continued to show signs of left-sided hemiplegia. MRI of the brain was recommended Earlier this morning, the patient became short of breath. He was found to be in acute respiratory distress. The emergency team was again activated. The patient was found to be in atrial fibrillation with rapid ventricular response and his artery was in the 120 to 1:30 range. The patient became progressively more hypoxic and short of breath. At 6:00 chest x-ray was done and it showed left basilar infiltration without signs of any heart failure. Nevertheless the patient continued to be profoundly short of breath and tachypneic and his respiratory rate was in the mid 30s going up to the 40 times an hour range. Blood gases was done that showed a pH of 7.48 with a pCO2 of 26 and pO2 of 52. At that time the patient was started on a BiPAP at a pressure of 10/5 cm of water and the patient was brought into the intensive care unit. He is currently on a BiPAP with an FiO2 of 60%. No reported aspiration. He was given a dose of Lasix and he has already produced more than 600 mL of urine output. He still struggling with breathing despite being on a BiPAP. He is pulling more than 1000cc on the BiPAP. He is on no anticoagulants for now. No previous history of DVT or pulmonary embolism. No swelling in lower extremities. Lactic acid level is at 2.6. No fever. Currently the patient on IV Cardizem for rate control at family grams an hour. On 06/15/2018, I'm seeing this patient for a follow-up. This morning he is off the BiPAP is on oxygen at 15 L high flow. He was taken off the BiPAP this morning. His chest x-ray showing a left lower lobe consolidation and the patient is currently on a combination of antibiotics using a combination of Fortaz and clindamycin. He has a weak congested cough. Unable to bring up much sputum. Neurologically is awake. Is following commands and answering questions. He has left facial weakness. He has hemiplegia on the left upper and left lower extremity. A follow-up CAT scan of the head yesterday showed a large CVA along the MCA distribution and the patient had a early hemorrhagic spots measuring 9 mm in size affecting an area of focal hemorrhage. Based on this, nontender, the patient was offered. The patient's cardiac rhythm is still in atrial fibrillation at the rate is under better control and the patient was on Cardizem drip yesterday and currently is off the Cardizem drip. Hemodynamically stable. Lasix has been placed on hold for now. Neurologist on the case. The patient will have a follow-up CAT scan of the brain today. Meanwhile, the patient is much more alert and awake compared to yesterday. His breathing is less labored. He is off the BiPAP as mentioned. FiO2 is being gradually weaned off. His cough is weak and congested as mentioned. He is nothing by mouth. 06/16/2018, the patient is being seen for a follow-up. The patient was taken again off the BiPAP and currently is on oxygen 6 L per minute nasal cannula maintaining a saturation above 90%. Calm and comfortable. Nonacute distress. Awake. Communicating. He has left facial weakness. Has left-sided hemiplegia. A follow-up CAT scan of the head was done yesterday and showed a stable hemorrhagic focus within a evolving right MCA distribution stroke. The patient is nothing by mouth. The patient failed a swallow evaluation yesterday and this will be repeated again today. Possibly may need a modified barium swallow. Otherwise, he is afebrile. White cell count is at 12.7. The patient' s creatinine is at 1.4. He is still in atrial fibrillation and Cardizem is being utilized on and off in the form of the drip for better rate control. Echocardiogram was done and the patient has a preserved LV function and there is no valvular abnormalities. No fever. No aspiration. No open wounds or sores. No skin rashes. No other significant events overnight. His cough is weak as mentioned earlier. 02/14/2018 the patient is being seen in follow-up in the intensive care unit. This morning I see him a bit more confused. A follow-up CAT scan will be done. No improvement at all in terms of the left-sided hemiplegia. The patient also has left facial weakness. He is communicating. His speech is a bit garbled. His cough is weak. He failed a swallow evaluation twice and the patient will ultimately need a PEG tube insertion for nutritional support. No nausea. No vomiting. No abdominal pain. Hemodynamically he converted back into sinus rhythm. He is having an elevated blood pressure and for that reason he was given IV hydralazine pushes 10 mg every 6 hours for systolic above 160. He was also started on a clonidine patch today. No fever. Renal function stable with a creatinine of 1.5. Results of the blood work shows a mild component of non-anion gap metabolic acidosis. On 06/18/2018, Ronny is essentially the same. He is communicating. He has facial asymmetry. He has complete paresis of the left upper and left lower extremity and the left face. The follow-up CAT scan of the brain showed an evolution of the right MCA distribution CVA. Hemodynamically still having episodes of atrial fibrillation alternating with sinus rhythm at the rate is controlled. Blood pressure control. He remains nothing by mouth. He has failed swallow evaluation. I am thinking that he will need a PEG tube insertion with the next 24-48 hours and the family and a daughter are both agreeable. No aspiration. No signs of any respiratory distress. The patient' s right MCA infarct is evolving. There is associated hemorrhagic change which is approximately the same measuring about 1.3 cm in size based on the most recent CAT scan of the brain. There is some mass effect with effacement of the right lateral ventricle with a 4.2 mm. On 06/19/2018, patient is relatively the same, continues to have facial asymmetry , and left-sided weakness. Patient is being considered for PEG tube placement. Her chest x-ray is relatively unremarkable. No evidence of aspiration pneumonia noted. CBC showed leukocytosis with WBC count of 14.7 renal profile showed a BUN of 54 creatinine of 1.33., Improving compared to admission BUN and creatinine. Objective - Vital Signs Vital signs: Vital Signs Temp 97.4 F L 06/19/18 08:00 Pulse 73 06/19/18 08:00 Resp 16 06/19/18 08:00 BP 155/73 06/19/18 08:00 Pulse Ox 90 L 06/19/18 08:00 Intake & Output 06/18/18 06/19/18 06/19/18 18:59 06:59 18:59 Intake Total 860 660 Output Total 735 1550 Balance 125 -890 Weight 75.7 kg Intake: IV 660 660 Dextrose 5% in Water 1, 660 660 000 ml @ 60 mls/hr IV . [id number] [facility] Rx#:[id number] Intake, IV Titration 200 Amount Clindamycin 600 mg In 100 Dextrose 5% in Water 50 ml @ 50 mls/hr IVPB Q8HR [facility] Rx#:[id number] cefTAZidime 2 gm In 100 Sodium Chloride 0.9% 100 ml @ 100 mls/hr IVPB Q12H [facility] Rx#:[id number] Output: Urine 735 1550 Other: Voiding Method Indwelling Catheter Indwelling Catheter Indwelling Catheter - Exam Gen. appearance the patient is currently comfortable on 2 L of oxygen by nasal cannula. Arousable, in no distress. Followed simple instructions. Head exam was generally normal. There was no scleral icterus or corneal arcus. Mucous membranes were moist. Facial asymmetry with left facial weakness Neck was supple and without jugular venous distension, thyromegaly, or carotid bruits. Carotids were easily palpable bilaterally. There was no adenopathy. Lungs sounds are diminished and the patient is scattered rhonchi heard throughout the lung his bilaterally and bilateral crackling the lung bases. Few scattered expiratory wheezes are also appreciated. Heart sounds are irregular, tachycardic, possible sinus on the patient's sternum is stable clean and intact at this point in time. Abdominal exam revealed normal bowel sounds. The abdomen was soft, non-tender, and without masses, organomegaly, or appreciable enlargement of the abdominal aorta. Examination of the extremities revealed easily palpable radial, femoral and pedal pulses. There was no cyanosis, clubbing or edema. Neurologically the patient is awake. Following simple commands. There is a preferential gaze to the right upper quadrant of the eyes. The patient has left -sided weakness including left upper and left lower extremity and left facial weakness. Cough is weak. He is able to move his tongue. Pupils are equal and reactive to light around 4 mm in size. There is increased spasticity in the left upper and left lower extremity. Early Babinski signs can be also elicited in the left lower extremity. - Labs CBC & Chem 7: 06/19/18 05:03 06/19/18 05:03 Labs: Abnormal Lab Results - Last 24 Hours (Table) 06/18/18 06/18/18 06/19/18 Range/Units 12:08 17:33 01:15 WBC (3.8-10.6) k/uL Neutrophils # (1.3-7.7) k/uL Lymphocytes # (1.0-4.8) k/uL Chloride (98-107) mmol/L Carbon Dioxide (22-30) mmol/L BUN (9-20) mg/dL Creatinine (0.66-1.25) mg/dL Glucose (74-99) mg/dL POC Glucose (mg/dL) 183 H 241 H 216 H (75-99) mg/dL Magnesium (1.6-2.3) mg/dL 06/19/18 06/19/18 06/19/18 Range/Units 03:45 05:03 05:03 WBC 14.7 H (3.8-10.6) k/uL Neutrophils # 12.8 H (1.3-7.7) k/uL Lymphocytes # 0.7 L (1.0-4.8) k/uL Chloride 109 H (98-107) mmol/L Carbon Dioxide 19 L (22-30) mmol/L BUN 54 H (9-20) mg/dL Creatinine 1.33 H (0.66-1.25) mg/dL Glucose 158 H (74-99) mg/dL POC Glucose (mg/dL) 198 H (75-99) mg/dL Magnesium 2.6 H (1.6-2.3) mg/dL 06/19/18 Range/Units 05:54 WBC (3.8-10.6) k/uL Neutrophils # (1.3-7.7) k/uL Lymphocytes # (1.0-4.8) k/uL Chloride (98-107) mmol/L Carbon Dioxide (22-30) mmol/L BUN (9-20) mg/dL Creatinine (0.66-1.25) mg/dL Glucose (74-99) mg/dL POC Glucose (mg/dL) 147 H (75-99) mg/dL Magnesium (1.6-2.3) mg/dL Microbiology - Last 24 Hours (Table) 06/13/18 05:54 Blood Culture - Final Blood No Growth after 144 hours 06/13/18 05:47 Blood Culture - Final Blood No Growth after 144 hours Assessment and Plan Assessment: 1 acute CVA likely involving the right MCA distribution and the patient has left sided hemiplegia. This is most likely an embolic phenomena related to paroxysmal atrial fibrillation. The patient has a area of hemorrhagic transformation within the right MCA CVA. The patient is hemodynamically stable. Neurologically unchanged. Mental status is fluctuating and the patient is a bit more confused on today's evaluation. A follow-up CAT scan showed evolving right MCA infarct with hemorrhagic transformation which remains rather stable measuring about 1.3 cm in size. The patient is significantly impaired neurologically and the patient is having left-sided hemiplegia. Speech is a bit garbled. The patient is able to communicate and follow commands and answer questions. 2 acute hypoxic respiratory failure, recovered and currently on 2 L of oxygen by nasal cannula 3 atrial fibrillation and the patient is converted into normal sinus rhythm. 4 coronary artery disease with previous coronary artery bypass surgery 5 previous history of TIA 6 previous history of left frontal CVA 7 hypertension 8 hyperlipidemia 9 previous history of coronary artery bypass surgery in 2002 10 suspected left lower lobe aspiration pneumonia 11 dysphagia secondary to above, and the patient has failed swallow evaluation secondary to significant neurologic impairment post CVA. Recommendation: Continue present treatment plan, continue aspiration precautions , consider GI evaluation for PEG tube placement. Patient is now off antibiotics which were used for presumptive aspiration, he used to be on Fortaz and clindamycin, discontinued. Continue maintenance IV fluid, and once the PEG tube is placed, consider feeding based upon the recommendation of the assistant passenger locomotive engineer. Time with Patient: Less than 30
[2018-06-19 11:42] LABS: Glucose,Whole Blood 192 mg/dL (75-99)
[2018-06-19] MEDS: DEXAMETHASONE SOD PHOSPHATE 10 MG/ML 1 ML VIAL IV SCH (12:09)
[2018-06-19 17:27] LABS: Glucose,Whole Blood 276 mg/dL (75-99)
--- NOTE | 2018-06-19 18:27 | P.CONS ---
History of Present Illness - Reason for Consult Consult date: 06/19/18 Oropharyngeal dysphagia Requesting physician: Ata Lance - Chief Complaint Fall, CVA - History of Present Illness The patient is a 77-year-old male with a known history of coronary artery disease status post CABG, paroxysmal atrial fibrillation, gastroesophageal reflux disease and hypertension who presented to the hospital after being found on the floor at his house and was subsequently diagnosed with a right middle cerebral artery CVA with associated left hemiplegia. The patient has been receiving therapy in the hospital and gastroenterology was consulted as the patient has been unable to take oral nutrition since presentation. The patient did have a modified barium swallow with speech language pathology on Tuesday during which time silent aspiration was noted. Today the patient was seen again by speech lying which pathology and was felt that there may be some improvement in his ability to swallow. The patient has had residual left-sided hemiplegia after his stroke however sensation remains intact per the patient's niece who is bedside. The patient is not had any abdominal pain, hematochezia or melena. He does have a history of gastroesophageal reflux disease and is on home PPI therapy per his daughter. Review of Systems REVIEW OF SYSTEMS: CARDIOPULMONARY: Denies chest pain or shortness of breath. GENITOURINARY: No dysuria or hematuria. MUSCULOSKELETAL: Left hemiplegia which has been stable after CVA.. SKIN: Denies any new rashes or lesions, jaundice or pallor. PSYCHIATRIC: Denies any depression or anxiety the patient's daughter reports he is in a worse mood today. NEUROLOGY: He does report a headache, stable left hemiplegia as mentioned. EARS: No tinnitus, discharge or new hearing loss. NOSE: No discharge or congestion. EYES: No pain in eyes or change in vision. CONSTITUTIONAL: No recent weight loss. No fever, chills, night sweats. Past Medical History Past Medical History: Coronary Artery Disease (CAD), CVA/TIA, GERD/Reflux, Hyperlipidemia, Hypertension Additional Past Medical History / Comment(s): TIA 2014. HYPOGLYCEMIC, History of Any Multi-Drug Resistant Organisms: None Reported Past Surgical History: Coronary Bypass/CABG, Tonsillectomy Additional Past Surgical History / Comment(s): QUAD CABG 2002. COLONOSCOPY in 2016-wnl per pt. egd see report Past Anesthesia/Blood Transfusion Reactions: No Reported Reaction Smoking Status: Never smoker Additional Past Alcohol Use History / Comment(s): Patient lives at home independently and has a dog in the home. - Past Family History Sister(s) Family Medical History: Cancer Additional Family Medical History / Comment(s): LUNG, BONE CA Medications and Allergies Home Medications Medication Instructions Recorded Confirmed Type Aspirin [Adult Low Dose Aspirin EC] 81 mg PO DAILY 06/30/17 06/12/18 History Atorvastatin [Lipitor] 10 mg PO DAILY 06/30/17 06/12/18 History Cholecalciferol (Vitamin D3) 2,000 unit PO DAILY 06/30/17 06/12/18 History [Vitamin D3] Cyanocobalamin (Vitamin B-12) 2,000 mcg PO DAILY 06/30/17 06/12/18 History [Vitamin B-12] Metoprolol Tartrate [Lopressor] 25 mg PO DAILY 06/12/18 06/12/18 History Omeprazole [PriLOSEC] 20 mg PO AC-BID 06/12/18 06/12/18 History Allergies Allergy/AdvReac Type Severity Reaction Status Date / Time Penicillins Allergy Unknown Verified 06/12/18 16:29 Physical Exam Vitals: Vital Signs Temp Pulse Pulse Resp BP BP Pulse Ox 06/19/18 16:00 98.1 F 72 18 156/69 97 06/19/18 12:00 97.8 F 80 16 138/66 90 L 06/19/18 08:00 97.4 F L 73 16 155/73 90 L 06/19/18 06:09 97.8 F 80 18 153/78 96 06/19/18 05:00 162/74 95 06/19/18 04:00 97.7 F 81 29 H 153/75 98 06/19/18 03:00 89 29 H 142/74 06/19/18 02:00 97 26 H 162/68 06/19/18 01:00 86 28 H 186/91 06/19/18 00:00 98.2 F 80 27 H 186/79 95 06/18/18 23:00 78 32 H 169/73 94 L 06/18/18 22:04 80 26 H 167/75 94 L 06/18/18 22:00 83 21 165/77 95 06/18/18 21:00 81 33 H 151/70 94 L 06/18/18 20:00 97.7 F 72 27 H 156/76 97 06/18/18 19:00 81 25 H 157/70 94 L Intake and Output 06/19/18 06/19/18 06/19/18 06:59 14:59 22:59 Intake Total 420 Output Total 1350 Balance -930 Intake: IV 420 Dextrose 5% in Water 1, 420 000 ml @ 60 mls/hr IV . [id number] [facility] Rx#:[id number] Output: Urine 1350 Other: Voiding Method Indwelling Catheter Indwelling Catheter Indwelling Catheter Weight 75.7 kg On physical examination, patient appears comfortable in no apparent distress. HEAD: Normocephic. EYES: No scleral icterus. No conjunctival injection. MOUTH: No lesions or thrush noted. NECK: Trachea midline, no gross abnormalities. CHEST: Clear to auscultation with no wheezing or rhonchi appreciated. HEART: Irregularly irregular with no tachycardia noted. ABDOMEN: Soft, obese. Bowel sounds are positive. No organomegaly. No guarding or rigidity. EXTREMITIES: Minimal bilateral pedal edema. SKIN: No rashes, no jaundice. NEUROLOGIC: Alert and oriented. Left hemiplegia, stable per the patient's daughter since CVA Results CBC & Chem 7: 06/19/18 05:03 06/19/18 05:03 Labs: Abnormal Lab Results - Last 24 Hours (Table) 06/19/18 06/19/18 06/19/18 Range/Units 01:15 03:45 05:03 WBC 14.7 H (3.8-10.6) k/uL Neutrophils # 12.8 H (1.3-7.7) k/uL Lymphocytes # 0.7 L (1.0-4.8) k/uL Chloride (98-107) mmol/L Carbon Dioxide (22-30) mmol/L BUN (9-20) mg/dL Creatinine (0.66-1.25) mg/dL Glucose (74-99) mg/dL POC Glucose (mg/dL) 216 H 198 H (75-99) mg/dL Magnesium (1.6-2.3) mg/dL 06/19/18 06/19/18 06/19/18 Range/Units 05:03 05:54 11:39 WBC (3.8-10.6) k/uL Neutrophils # (1.3-7.7) k/uL Lymphocytes # (1.0-4.8) k/uL Chloride 109 H (98-107) mmol/L Carbon Dioxide 19 L (22-30) mmol/L BUN 54 H (9-20) mg/dL Creatinine 1.33 H (0.66-1.25) mg/dL Glucose 158 H (74-99) mg/dL POC Glucose (mg/dL) 147 H 192 H (75-99) mg/dL Magnesium 2.6 H (1.6-2.3) mg/dL 06/19/18 Range/Units 17:26 WBC (3.8-10.6) k/uL Neutrophils # (1.3-7.7) k/uL Lymphocytes # (1.0-4.8) k/uL Chloride (98-107) mmol/L Carbon Dioxide (22-30) mmol/L BUN (9-20) mg/dL Creatinine (0.66-1.25) mg/dL Glucose (74-99) mg/dL POC Glucose (mg/dL) 276 H (75-99) mg/dL Magnesium (1.6-2.3) mg/dL Microbiology - Last 24 Hours (Table) 06/13/18 05:54 Blood Culture - Final Blood No Growth after 144 hours 06/13/18 05:47 Blood Culture - Final Blood No Growth after 144 hours Assessment and Plan (1) Dysphagia Narrative/Plan: Secondary to recent CVA. The patient had a modified barium swallow on Tuesday which showed silent aspiration. Per speech language pathology there may be some improvement with bedside evaluation today. Plan is for repeat study tomorrow. Current Visit: Yes Status: Acute Code(s): R13.10 - DYSPHAGIA, UNSPECIFIED SNOMED Code(s): 55555515 (2) Acute right MCA stroke Current Visit: Yes Status: Acute Code(s): I63.511 - CEREB INFRC D/T UNSP OCCLS OR STENOS OF RIGHT MID CEREB ART SNOMED Code(s): 812598801 (3) GERD (gastroesophageal reflux disease) Narrative/Plan: On home proton pump inhibitor therapy with Prilosec daily Current Visit: Yes Status: Acute Code(s): K21.9 - GASTRO-ESOPHAGEAL REFLUX DISEASE WITHOUT ESOPHAGITIS SNOMED Code(s): 950272584 Plan: Supportive care Continue fluid hydration Case discussed with the patient, his daughter and speech language pathology. Plan is for modified barium swallow tomorrow. Will await their recommendations. If the patient is unable to take oral diet we'll plan on PEG tube placement likely on 06/21 Continue Protonix daily Thank you for allowing us to participate in the care of this patient we will continue to follow
[2018-06-19] MEDS ORDERED: TEMAZEPAM 15 MG CAP PO PRN (19:28)
[2018-06-19] MEDS: ATORVASTATIN 80 MG TAB PO SCH (19:41)
--- NOTE | 2018-06-19 20:34 | P.PN ---
Subjective Progress Note Date: 06/19/18 This is a 77-year-old male patient who was found outside his home possibly on the ground for 1-2 hours he was brought into [facility] emergency center for evaluation he was noticed to have a left-sided droop and left-sided weakness he underwent a CAT scan of the brain revealed degenerative changes and nonspecific white matter changes possible remote ischemia and the left frontal lobe. Acute hemorrhage assessment limited due to motion artifact. No sizable obvious intraparenchymal hemorrhage. CTA of the head and neck showed no evidence of hemodynamically significant stenosis. No aneurysm or dissection. Moderate spondylotic changes in the cervical spine and stenosis. Initial chest x-ray showed no acute cardio pulmonary disease. Patient was admitted initially to the selective care unit and started on aspirin Lipitor he says currently he developed respiratory distress, A. fib with RVR and he was transferred into the intensive care unit this morning. He has been switched from nasal cannula to nonrebreather and now on BiPAP. He is currently on Cardizem drip their consult in place with Dr. Larsen from intensive care management, cardiology and Dr. Hackett. Patient does have MRI of the brain and lumbar spine as well as EEG ordered by Dr. Hackett. At this point these will not be able to be completed and a repeat CAT scan of the brain has been ordered here at echocardiogram has been ordered. Dr. Larsen is started patient on clindamycin and ceftriaxone for possible aspiration pneumonia. History is obtained from the record and from nursing staff. Patient is unable to provide any information. Daughter from out of state is at the bedside and states that she talks to him on the phone every day he is independent and manages well at home prior to this. Patient had a lactic acid drawn which was 2.6 and repeat was 2.6, white blood count is 5.7, creatinine 1.47, alkaline phosphatase 137, CK 428. Urine was negative for infection but culture is in progress. Temperature maximum 101.9 06/19/2018 patient is doing better today. He has no complaints, visitors present and he is communicating with them relatively well. Although thought content is still poor at times. Tolerating her antibiotic therapy well. No fevers or chills. Objective - Vital Signs Vital signs: Vital Signs Temp 98.4 F 06/19/18 20:00 Pulse 78 06/19/18 20:00 Resp 18 06/19/18 20:00 BP 137/72 06/19/18 20:00 Pulse Ox 98 06/19/18 20:00 Intake & Output 06/19/18 06/19/18 06/20/18 06:59 18:59 06:59 Intake Total 660 Output Total 1550 520 Balance -890 -520 Weight 75.7 kg Intake: IV 660 Dextrose 5% in Water 1, 660 000 ml @ 60 mls/hr IV . [id number] [facility] Rx#:[id number] Output: Urine 1550 520 Other: Voiding Method Indwelling Catheter Indwelling Catheter Indwelling Catheter # Bowel Movements 0 - Exam Gen: This is a 77-year-old male patient seen in the intensive care unit. He is currently on BiPAP with moderate distress noted. HEENT: Head is atraumatic, normocephalic. Pupils equal, round. Sclerae is anicteric. NECK: Supple. No JVD. No lymphadenopathy. No thyromegaly. LUNGS: There is symmetrical air entry, few crackles at the bilateral bases right greater than left no distinct dullness HEART: Regular rate and rhythm. No murmur. ABDOMEN: Soft. Bowel sounds are present. No masses. No tenderness. EXTREMITIES: No pedal edema. No calf tenderness. Dorsalis pedis +2 bilaterally. NEUROLOGICAL: Patient arousable, converses with his visitor but the quality of speech is quite poor. Swallowing is of concern. - Labs CBC & Chem 7: 06/19/18 05:03 06/19/18 05:03 Labs: Abnormal Lab Results - Last 24 Hours (Table) 06/19/18 06/19/18 06/19/18 Range/Units 01:15 03:45 05:03 WBC 14.7 H (3.8-10.6) k/uL Neutrophils # 12.8 H (1.3-7.7) k/uL Lymphocytes # 0.7 L (1.0-4.8) k/uL Chloride (98-107) mmol/L Carbon Dioxide (22-30) mmol/L BUN (9-20) mg/dL Creatinine (0.66-1.25) mg/dL Glucose (74-99) mg/dL POC Glucose (mg/dL) 216 H 198 H (75-99) mg/dL Magnesium (1.6-2.3) mg/dL 06/19/18 06/19/18 06/19/18 Range/Units 05:03 05:54 11:39 WBC (3.8-10.6) k/uL Neutrophils # (1.3-7.7) k/uL Lymphocytes # (1.0-4.8) k/uL Chloride 109 H (98-107) mmol/L Carbon Dioxide 19 L (22-30) mmol/L BUN 54 H (9-20) mg/dL Creatinine 1.33 H (0.66-1.25) mg/dL Glucose 158 H (74-99) mg/dL POC Glucose (mg/dL) 147 H 192 H (75-99) mg/dL Magnesium 2.6 H (1.6-2.3) mg/dL 06/19/18 Range/Units 17:26 WBC (3.8-10.6) k/uL Neutrophils # (1.3-7.7) k/uL Lymphocytes # (1.0-4.8) k/uL Chloride (98-107) mmol/L Carbon Dioxide (22-30) mmol/L BUN (9-20) mg/dL Creatinine (0.66-1.25) mg/dL Glucose (74-99) mg/dL POC Glucose (mg/dL) 276 H (75-99) mg/dL Magnesium (1.6-2.3) mg/dL Microbiology - Last 24 Hours (Table) 06/13/18 05:54 Blood Culture - Final Blood No Growth after 144 hours 06/13/18 05:47 Blood Culture - Final Blood No Growth after 144 hours Laboratory Results WBC 14.7 k/uL (3.8-10.6) H 06/19/18 05:03 RBC 4.36 m/uL (4.30-5.90) 06/19/18 05:03 Hgb 13.2 gm/dL (13.0-17.5) 06/19/18 05:03 Hct 41.8 % (39.0-53.0) 06/19/18 05:03 MCV 95.8 fL (80.0-100.0) 06/19/18 05:03 MCH 30.4 pg (25.0-35.0) 06/19/18 05:03 MCHC 31.7 g/dL (31.0-37.0) 06/19/18 05:03 RDW 13.9 % (11.5-15.5) 06/19/18 05:03 Plt Count 181 k/uL (150-450) 06/19/18 05:03 Neutrophils % 87 % 06/19/18 05:03 Lymphocytes % 4 % 06/19/18 05:03 Monocytes % 7 % 06/19/18 05:03 Eosinophils % 0 % 06/19/18 05:03 Basophils % 0 % 06/19/18 05:03 Neutrophils # 12.8 k/uL (1.3-7.7) H 06/19/18 05:03 Lymphocytes # 0.7 k/uL (1.0-4.8) L 06/19/18 05:03 Monocytes # 1.0 k/uL (0-1.0) 06/19/18 05:03 Eosinophils # 0.0 k/uL (0-0.7) 06/19/18 05:03 Basophils # 0.0 k/uL (0-0.2) 06/19/18 05:03 PT 10.1 sec (9.0-12.0) 06/12/18 15:58 INR 1.0 (<1.2) 06/12/18 15:58 APTT 18.6 sec (22.0-30.0) L 06/12/18 15:58 Sample Site rrad 06/14/18 06:54 ABG pH 7.49 (7.35-7.45) H 06/14/18 06:54 ABG pCO2 26 mmHg (35-45) L 06/14/18 06:54 ABG pO2 52 mmHg (83-108) L* 06/14/18 06:54 ABG HCO3 20 mmol/L (21-25) L 06/14/18 06:54 ABG Total CO2 21 mmol/L (19-24) 06/14/18 06:54 ABG O2 Saturation 89.6 % (94-97) L 06/14/18 06:54 ABG Base Excess -3.5 mmol/L 06/14/18 06:54 Christophe Test Yes 06/14/18 06:54 FiO2 100 % 06/14/18 06:54 Sodium 137 mmol/L (137-145) 06/19/18 05:03 Potassium 4.7 mmol/L (3.5-5.1) 06/19/18 05:03 Chloride 109 mmol/L (98-107) H 06/19/18 05:03 Carbon Dioxide 19 mmol/L (22-30) L 06/19/18 05:03 Anion Gap 9 mmol/L 06/19/18 05:03 BUN 54 mg/dL (9-20) H 06/19/18 05:03 Creatinine 1.33 mg/dL (0.66-1.25) H 06/19/18 05:03 Est GFR (CKD-EPI)AfAm 60 (>60 ml/min/1.73 sqM) 06/19/18 05:03 Est GFR (CKD-EPI)NonAf 52 (>60 ml/min/1.73 sqM) 06/19/18 05:03 Glucose 158 mg/dL (74-99) H 06/19/18 05:03 POC Glucose (mg/dL) 276 mg/dL (75-99) H 06/19/18 17:26 POC Glu Thread Grinder Tool ID Calista Fisher 06/19/18 17:[address] Glu mg/dL 157 06/13/18 21:12 Hemoglobin A1c 7.1 % (4.0-6.0) H 06/13/18 21:12 Lactic Ac Sepsis Rflx Y 06/13/18 21:54 Plasma Lactic Acid Raheem 2.6 mmol/L (0.7-2.0) H* 06/14/18 01:50 Calcium 8.5 mg/dL (8.4-10.2) 06/19/18 05:03 Phosphorus 4.4 mg/dL (2.5-4.5) 06/19/18 05:03 Magnesium 2.6 mg/dL (1.6-2.3) H 06/19/18 05:03 Total Bilirubin 0.6 mg/dL (0.2-1.3) 06/12/18 15:58 AST 42 U/L (17-59) 06/12/18 15:58 ALT 35 U/L (21-72) 06/12/18 15:58 Alkaline Phosphatase 137 U/L (38-126) H 06/12/18 15:58 Total Creatine Kinase 428 U/L (55-170) H 06/12/18 15:58 CK-MB (CK-2) 4.7 ng/mL (0.0-2.4) H 06/12/18 15:58 CK-MB (CK-2) Rel Index 1.1 06/12/18 15:58 Troponin I <0.012 ng/mL (0.000-0.034) 06/12/18 15:58 Total Protein 6.8 g/dL (6.3-8.2) 06/12/18 15:58 Albumin 4.0 g/dL (3.5-5.0) 06/12/18 15:58 Triglycerides 59 mg/dL (<150) 06/13/18 05:47 Cholesterol 129 mg/dL (<200) 06/13/18 05:47 LDL Cholesterol, Calc 67 mg/dL (0-99) 06/13/18 05:47 HDL Cholesterol 50 mg/dL (40-60) 06/13/18 05:47 Urine Color Yellow 06/13/18 21:00 Urine Appearance Clear (Clear) 06/13/18 21:00 Urine pH 5.5 (5.0-8.0) 06/13/18 21:00 Ur Specific [place] 1.021 (1.001-1.035) 06/13/18 21:00 Urine Protein 1+ (Negative) H 06/13/18 21:00 Urine Glucose (UA) Trace (Negative) H 06/13/18 21:00 Urine Ketones Negative (Negative) 06/13/18 21:00 Urine Blood Trace (Negative) H 06/13/18 21:00 Urine Nitrite Negative (Negative) 06/13/18 21:00 Urine Bilirubin Negative (Negative) 06/13/18 21:00 Urine Urobilinogen <2.0 mg/dL (<2.0) 06/13/18 21:00 Ur Leukocyte Esterase Negative (Negative) 06/13/18 21:00 Urine RBC 2 /hpf (0-5) 06/13/18 21:00 Urine WBC 1 /hpf (0-5) 06/13/18 21:00 Ur Squamous Epith Cells <1 /hpf (0-4) 06/13/18 21:00 Urine Mucus Rare /hpf (None) H 06/13/18 21:00 Microbiology 06/13/18 05:54 Blood Blood Culture - Final No Growth after 144 hours 06/13/18 05:47 Blood Blood Culture - Final No Growth after 144 hours Assessment and Plan (1) Acute right MCA stroke Current Visit: Yes Status: Acute Code(s): I63.511 - CEREB INFRC D/T UNSP OCCLS OR STENOS OF RIGHT MID CEREB ART SNOMED Code(s): 501883618 (2) Dysphagia Current Visit: Yes Status: Acute Code(s): R13.10 - DYSPHAGIA, UNSPECIFIED SNOMED Code(s): 29523453 (3) Aspiration pneumonia Narrative/Plan: 77 year old man with large stroke had developed a fever which is now improving with hydration and antibiotic therapy directed toward aspiration pneumonia. The fever is multifactorial including the stroke, and the aspiration pneumonitis. Antimicrobial therapy is adjusted, there is notation of a penicillin ALLERGY of undetermined severity, clindamycin will be continued, Pseudomonas will be treated by changing Rocephin to ceftazidime. Prognosis is very poor, appears Afib as eitology of the stroke. Patient is somewhat improved today. Pulmonary status is improved. Doing well with current antibiotic therapy of clindamycin, cefotaxime was discontinued by pulmonary critical care. The patient has had swallow study the continues to show evidence of some silent aspiration. If this is further improved his diet will be advanced. He continues to have difficulties GI has evaluated will offer him PEG tube. Continue clindamycin for now until this has been fully assessed. Current Visit: Yes Status: Acute Code(s): J69.0 - PNEUMONITIS DUE TO INHALATION OF FOOD AND VOMIT SNOMED Code(s): 213164495
[2018-06-20] MEDS: CLINDAMYCIN 600 MG in DEXTROSE 5% IN WATER 50 ML IVPB SCH ×6 (01:23→19:39)
[2018-06-20] MEDS: DEXAMETHASONE SOD PHOSPHATE 10 MG/ML 1 ML VIAL IV SCH ×2 (01:23→15:41)
[2018-06-20] MEDS: DILTIAZEM 50 MG in SODIUM CHLORIDE 0.9% 40 ML IV SCH ×2 (01:24→06:28)
[2018-06-20 01:29] LABS: Glucose,Whole Blood 232 mg/dL (75-99)
[2018-06-20] MEDS: INSULIN ASPART 100 UNIT/ML 1 ML 10 ML VIAL SQ SCH ×4 (01:30→19:22)
[2018-06-20] MEDS: DEXTROSE 5% IN WATER 1,000 ML IV SCH (05:55)
[2018-06-20 06:17] LABS: Glucose,Whole Blood 195 mg/dL (75-99)
--- NOTE | 2018-06-20 09:14 | CT ---
EXAMINATION TYPE: CT brain wo con DATE OF EXAM: 06/20/2018 COMPARISON: 06/17/2018 HISTORY: 77-year-old male Follow up right MCA hemorrhagic stroke TECHNIQUE: Examination was done in axial plane without intravenous contrast. Coronal and sagittal r econstructions performed. CT DLP: 835.40 mGycm Automated exposure control for dose reduction was used. FINDINGS: Redemonstrated involving infarct right MCA territory with associated cytotoxic and vasogenic edema ca using slight asymmetric flattening of the right lateral ventricle and 4 mm of leftward midline shift. Redemonstrated leftward subfalcine herniation as well. The area of intraparenchymal hematoma in the right frontal lobe continues to measure approximately 2.7 cm on coronal series, image 24 but on axial show some decreasing density in some areas. There appears to be an area of encephalomalacia within the left frontal lobe which remains unchanged from 06/12/2018. No extra-axial fluid collection. No hydrocephalus. No effacement of basal subarachnoid cisterns. Trace mucosal thickening right maxillary sinus. Partial opacification of the inferior most right mast oid air cells and cerumen within the bilateral external auditory canals. Orbits and globes are intact . IMPRESSION: 1. Redemonstrated large right MCA territory hemorrhagic infarct with cytotoxic and vasogenic edema ca using mass effect and similar 4 mm of leftward midline shift as well as leftward subfalcine herniatio n. 2. The intraparenchymal hematoma shows some evolution now to acute and subacute blood products and co ntinues to measure 2.7 cm on coronal series. 3. An area of suspected old cortical infarct in the left frontal lobe is unchanged from 06/12/2018.
[2018-06-20] MEDS: PANTOPRAZOLE 40 MG/10 ML VIAL IV SCH (09:17)
--- NOTE | 2018-06-20 09:36 | FL ---
MODIFIED SWALLOW / DEGLUTITION STUDY DATE OF EXAM: 06/20/2018 CLINICAL HISTORY: 77-year-old male Dysphagia. Patient with large right-sided stroke and aspiration on prior exam. TECHNIQUE: Deglutition study is performed utilizing honey and nectar thick liquid barium, barium thi ck applesauce. Total fluoroscopy time: 3 minutes 31 seconds. Total images: None. Real-time fluoroscopy support was provided to speech pathology. COMPARISON: None. FINDINGS: There is moderate penetration with nectar liquid consistency. The other consistencies showed no penet ration or aspiration. However, there is progressive accumulation of residuals in the piriform sinuses secondary to impaired hyoid movement and decreased CP opening. IMPRESSION: Moderate penetration with nectar liquid. There is significant progressive accumulation of residuals w ithin the piriform sinuses secondary to impaired hyoid movement and decreased CP opening. Please refe r to speech therapist notes for further details if necessary.
--- NOTE | 2018-06-20 09:55 | CDI ---
Documentation Clarification Form Date: 06/20/18 CDS: Maddi Barker RN Admit Date: 06/12/18 Patient Name: Ronny Harper ATTENTION: The Clinical Documentation Specialists (CDI) and [facility] Coding Staff appreciate your assistance in clarifying documentation. Please respond to the clarification below the line at the bottom and electronically sign. The CDI & [facility] Coding staff will review the response and follow-up if needed. Please note: Queries are made part of the Legal Health Record. If you have any questions, please contact the author of this message via ITS. Dr. Ata Lance, Documentation states: Renal function stable History/Risk Factors: CAD, CVA/TIA, hyperlipidemia, HTN Clinical indicators: Baseline 01/13 Out pt. lab draw: BUN 24, CR. 1.70, GFR 38 Abnormal on admission: BUN 27, CR. 1.47, GFR 52, ON 06/19 BUN 54, CR. 1.33, GFR 45 Treatment: .9 500ML Bolus x1, .9 @ 60ml/hr These Labs are Clinical significant, can you please render your opinion. Please clarify what abnormal laboratory signifies: Disease process, please specify Acute Kidney injury Acute Kidney failure CKD Stage 3 (GFR 30-59) CKD Stage 4 (GFR 15-29) Unable to determine Other, please specify MTDD
--- NOTE | 2018-06-20 10:20 | P.PN ---
Subjective Progress Note Date: 06/20/18 Principal diagnosis: Dysphagia 77-year-old male admitted with CVA dysphagia. Patient failed his video swallow 4 days ago. Repeat MBS today provided by speech therapy reported as failed. Case was discussed with speech service this morning at bedside. Patient is requesting PEG tube insertion for attrition support. Nothing by mouth 8 days. Afebrile. Objective - Vital Signs Vital signs: Vital Signs Temp 97.6 F 06/20/18 07:52 Pulse 67 06/20/18 07:52 Resp 16 06/20/18 09:38 BP 154/71 06/20/18 07:52 Pulse Ox 98 06/20/18 07:52 Intake & Output 06/19/18 06/20/18 06/20/18 18:59 06:59 18:59 Intake Total 0 10 Output Total 1370 Balance -1370 10 Weight 75.7 kg Intake: IV 10 Invasive Line 6 10 Oral 0 Output: Urine 1370 Other: Voiding Method Indwelling Catheter Indwelling Catheter Indwelling Catheter # Bowel Movements 0 - Exam General appearance: The patient is alert, oriented, in no acute distress. Speech is somewhat garbled. HET: Head is normocephalic and atraumatic. Pupils are equal and reactive. Oropharynx is clear without lesions. Neck: Supple without lymphadenopathy. Trachea midline. Heart: S1 S2. Regular rate and rhythm. Lungs: Fine bibasilar crackles. Abdomen: Soft, nontender, nondistended with bowel sounds. No peritoneal signs. No palpable organomegaly or masses. Extremities: Normal skin color and turgor. No cyanosis, rash, ulceration, clubbing, or edema. Radial and pedal pulses are 2/4 bilaterally. Neurological: No focal deficits. Strength and sensation are grossly intact. - Labs CBC & Chem 7: 06/19/18 05:03 06/19/18 05:03 Labs: Abnormal Lab Results - Last 24 Hours (Table) 06/19/18 06/19/18 06/20/18 Range/Units 11:39 17:26 01:27 POC Glucose (mg/dL) 192 H 276 H 232 H (75-99) mg/dL 06/20/18 Range/Units 06:16 POC Glucose (mg/dL) 195 H (75-99) mg/dL Microbiology - Last 24 Hours (Table) 06/13/18 05:54 Blood Culture - Final Blood No Growth after 144 hours 06/13/18 05:47 Blood Culture - Final Blood No Growth after 144 hours Assessment and Plan (1) Dysphagia Current Visit: Yes Status: Acute Code(s): R13.10 - DYSPHAGIA, UNSPECIFIED SNOMED Code(s): 34153791 (2) Acute right MCA stroke Current Visit: Yes Status: Acute Code(s): I63.511 - CEREB INFRC D/T UNSP OCCLS OR STENOS OF RIGHT MID CEREB ART SNOMED Code(s): 466039086 (3) GERD (gastroesophageal reflux disease) Current Visit: Yes Status: Acute Code(s): K21.9 - GASTRO-ESOPHAGEAL REFLUX DISEASE WITHOUT ESOPHAGITIS SNOMED Code(s): 229899744 Plan: 1. We'll proceed with PEG tube insertion today. Dietary consultation for PEG tube evaluation and recommendations. 2. Continue Protonix daily. The vise hand has discussed the risks, benefits and alternative therapies for the above-mentioned procedure and for both sedation/analgesia as well as necessary blood product administration, if indicated, as they pertain to this patient. The patient has indicated understanding and acceptance of the risks and procedures discussed. Assessment and plan a care discussed with Dr. Carrillo
--- NOTE | 2018-06-20 10:47 | CDI ---
Documentation Clarification Form Date: 06/20/18 CDS: Maddi Barker RN Admit Date: 06/12/18 Patient Name: Ronny Harper ATTENTION: The Clinical Documentation Specialists (CDI) and [facility] Coding Staff appreciate your assistance in clarifying documentation. Please respond to the clarification below the line at the bottom and electronically sign. The CDI & [facility] Coding staff will review the response and follow-up if needed. Please note: Queries are made part of the Legal Health Record. If you have any questions, please contact the author of this message via ITS. Dr. Ky Hackett, Can you please render your opinion on the following documentation? Pt. admitted with CVA 06/13 - 06/19 Documentation states patient is confused History/Risk factors: CAD, CVA/TIA, hyperlipidemia, HTN Clinical Indicators: Labs on admission: BUN 27, CR 1.47, 06/13: LACTIC 2.6,06/14: ABG PH 7.49, PC02 26, P02 52, HC03 20, 02 SAT 89.6. On 06/[address] Brain: 06/20 Re-demonstrated large right MCA territory hemorrhagic infarct with cytotoxic and vasogenic edema causing mass effect and similar 4 mm of leftward midline shift as well as leftward subfalcine herniation. The intraparenchymal hematoma shows some evolution now to acute and subacute blood products and continues to measure 2.7 cm on coronal series. Treatment: Consults: Neurology, ID .9@ 40ml/hr [facility]. assessments Oxygen @ 3L In your professional opinion, can you please clarify the patients mental status , if known? Anoxic Encephalopathy Metabolic Encephalopathy Septic Encephalopathy Toxic Encephalopathy Other, please specify Unable to determine MTDD
--- NOTE | 2018-06-20 11:37 | PN ---
PROGRESS NOTE CHIEF COMPLAINT: CVA. HISTORY OF PRESENT ILLNESS: This gentleman has been stable. At the present time he is sleeping. PHYSICAL EXAM: Chest demonstrates rhonchi on both sides. Cardiac exam is normal. Abdomen is soft and hemiparesis is the same. IMPRESSION: Right-sided cerebrovascular accident. PLAN: Await results of next swallow evaluation after which he may require PEG tube placement and then he will be discharged to rehab. MMODL / IJN: [id number] /
[2018-06-20] MEDS ORDERED: IV FLUID CONTINUATION 1,000 ML IV ONE (12:04)
[2018-06-20] MEDS ORDERED: LACTATED RINGERS 1,000 ML IV ONE (12:15)
--- NOTE | 2018-06-20 13:16 | P.PCN ---
Date of Procedure: 06/20/18 Description of Procedure: Brief history: Patient is a 77-year-old pleasant male who has been seen and evaluated at the hospital for a CVA. The patient has residual left-sided weakness after his stroke and has failed repeated swallow evaluations. He was therefore scheduled for an EGD with PEG tube placement today. Procedure performed: EGD with PEG tube placement Preoperative diagnosis: Oropharyngeal dysphagia, aspiration IV sedation by anesthesia Estimated blood loss: Minimal. Procedure: After informed consent was obtained with the patient as well as the family the patient was brought into the endoscopy unit. IV conscious sedation was administered by anesthesia under continuous monitoring. The Olympus GF 190 video endoscope was inserted into the mouth and esophagus intubated without any difficulty and was gradually advanced to the stomach and duodenum. The bulb and second part of the duodenum was visualized which appeared normal. The scope at this time was withdrawn to the stomach adequately insufflated with air. Adequate transillumination was achieved onto the anterior abdominal wall. At the site of adequate transillumination and maximal finger indentation, on the anterior abdominal wall, this area was sterilely prepped and draped. One percent Lidocaine was infiltrated into the skin and a small incision was made. Trocar and cannula was passed through the incision into the stomach cavity. The trocar was removed. The insertion wire was passed through the cannula into the stomach. During exchange, the wire and cannula fell out of the stomach and the second incision site at to be made process repeated. Trocar and cannula were passed through the incision into the stomach cavity the trocar was removed. The insertion wire was passed through the cannula into the stomach. Insertion wire was snared and then the insertion wire, snare and endoscope were withdrawn from the mouth. The insertion wire was then attached to a [employer] PEG tube. The insertion wire was then pulled with the PEG tube through the incision site. PEG tube was pulled until the internal bolster was sitting snugly against the gastric mucosa which was confirmed with repeat EGD. On repeat EGD the esophagus was intubated without any difficulty and was advanced into the stomach. The internal bumper appeared to be in secure position. The visualized portions of the antrum body cardia and fundus of the stomach appeared normal. The esophagus was carefully examined as the scope was gradually being withdrawn which appeared normal. At this time external bumper was placed on the PEG tube closer to the anterior abdominal wall at 3.5 cm carolyne. The patient tolerated the procedure well. Impression: Successful [employer] PEG tube placement as described above. Recommendations: Findings of this examination were discussed with the patient's family. The patient will be started on tube feeds tomorrow. Post-PEG tube orders were written, with daily dressing changes and local wound care. Antibiotics given.
[2018-06-20] MEDS ORDERED: LEVOFLOXACIN 500MG-D5W PMX 500 MG in DEXTROSE/WATER 1 100ML.BAG IVPB STA (13:20)
--- NOTE | 2018-06-20 16:43 | PN ---
PROGRESS NOTE DATE OF SERVICE: 06/19/2018 CHIEF COMPLAINT: CVA. HISTORY OF PRESENT ILLNESS: This gentleman is doing fairly well and remains confused. He has no movement on the left. We are going to be re-evaluating his swallow capability. 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 PHYSICAL EXAM: Has bilateral rhonchi. He is awake and alert, but not appropriate. Speech is improved. Gaze is conjugate. IMPRESSION: Right-sided CVA with left jose juan paresis with confusion. PLAN: Repeat swallow evaluation. MMODL / IJN: [id number] /
--- NOTE | 2018-06-20 17:49 | PN ---
PROGRESS NOTE DATE OF SERVICE: 06/17/2018 CHIEF COMPLAINT: CVA. HISTORY OF PRESENT ILLNESS: This gentleman is waking up a little bit more each day. Blood sugars are up slightly. BUN and creatinine are also elevated somewhat. PHYSICAL EXAM: Vital signs are normal. He is a little bit more alert. Breath sounds are heard on both sides, but there are coarse rhonchi. Cardiac is normal and the abdomen is soft. IMPRESSION: 1. Right-sided cerebrovascular accident with left hemiparesis. 2. Aspiration pneumonia. 3. Renal failure. 4. Diabetes. PLAN: Continue to monitor neurologically and once he is stable, start rehab and work on a discharge plan. MMODL / IJN: [id number] /
--- NOTE | 2018-06-20 18:01 | PN ---
PROGRESS NOTE DATE OF SERVICE: 06/16/2018 CHIEF COMPLAINT: CVA. HISTORY OF PRESENT ILLNESS: There has been no essential change in this gentleman's condition, although he seems to be moving the right side a little bit more each day. PHYSICAL EXAMINATION: Color is good. Hydration is good. Breath sounds are heard bilaterally with rhonchi. Cardiac exam is normal. IMPRESSION: 1. Right-sided cerebrovascular accident. 2. Aspiration pneumonia. PLAN: Continue with supportive care until he can be moved to a regular floor. MMODL / IJN: [id number] /
[2018-06-20 18:25] LABS: Glucose,Whole Blood 214 mg/dL (75-99)
[2018-06-20] MEDS: LACTATED RINGERS 1,000 ML IV SCH (19:21)
[2018-06-20 20:56] LABS: Glucose,Whole Blood 208 mg/dL (75-99)
[2018-06-20] MEDS: ATORVASTATIN 80 MG TAB PO SCH (21:25)
[2018-06-20 23:23] LABS: Glucose,Whole Blood 228 mg/dL (75-99)
[2018-06-21] MEDS: CLINDAMYCIN 600 MG in DEXTROSE 5% IN WATER 50 ML IVPB SCH ×6 (00:04→15:03)
[2018-06-21] MEDS: DEXAMETHASONE SOD PHOSPHATE 10 MG/ML 1 ML VIAL IV SCH ×2 (00:04→12:51)
[2018-06-21] MEDS: DEXTROSE 5% IN WATER 1,000 ML IV SCH (00:08)
[2018-06-21] MEDS: INSULIN ASPART 100 UNIT/ML 1 ML 10 ML VIAL SQ SCH ×4 (00:12→17:53)
[2018-06-21 06:31] LABS: Glucose,Whole Blood 244 mg/dL (75-99)
[2018-06-21] MEDS: PANTOPRAZOLE 40 MG/10 ML VIAL IV SCH (08:53)
--- NOTE | 2018-06-21 10:32 | PN ---
PROGRESS NOTE DATE OF SERVICE: 06/21/2018 CHIEF COMPLAINT: CVA. HISTORY OF PRESENT ILLNESS: This gentleman is stable. He is awake and alert and he is talking, but he is confused. PHYSICAL EXAM: Physical exam is unchanged from the left hemiparesis. IMPRESSION: Cerebrovascular accident. PLAN: Await discharge planning. MMODL / IJN: [id number] /
[2018-06-21 11:31] LABS: Glucose,Whole Blood 213 mg/dL (75-99)
[2018-06-21] MEDS: LACTATED RINGERS 1,000 ML IV SCH (12:50)
--- NOTE | 2018-06-21 13:08 | P.PN ---
Subjective Progress Note Date: 06/21/18 Principal diagnosis: Dysphagia 77-year-old male admitted with CVA dysphagia. Patient failed his video swallow 5 days ago. Repeat MBS provided by speech therapy reported as failed. Status post PEG tube insertion yesterday. Presently tolerating feeds. Denies abdominal pain. Afebrile. Objective - Vital Signs Vital signs: Vital Signs Temp 97.6 F 06/21/18 06:15 Pulse 62 06/21/18 06:15 Resp 20 06/21/18 06:15 BP 150/65 06/21/18 06:15 Pulse Ox 94 L 06/21/18 06:15 Intake & Output 06/20/18 06/21/18 06/21/18 18:59 06:59 18:59 Intake Total 1210 0 Output Total 450 2000 1000 Balance 760 -2000 -1000 Weight 75.7 kg 75.7 kg Intake: IV 1210 0 Clindamycin 600 mg In 50 Dextrose 5% in Water 50 ml @ 50 mls/hr IVPB Q8HR [facility] Rx#:[id number] Invasive Line 5 0 0 Invasive Line 6 20 Sodium Chloride 0.9% 1, 540 000 ml @ 60 mls/hr IV . [id number] [facility] Rx#:[id number] Oral 0 Output: Urine 450 2000 1000 Uretheral ([place]) 1000 Other: Voiding Method Indwelling Catheter Indwelling Catheter # Bowel Movements 1 - Exam General appearance: The patient is alert, oriented, in no acute distress. Speech is somewhat garbled. HET: Head is normocephalic and atraumatic. Pupils are equal and reactive. Oropharynx is clear without lesions. Neck: Supple without lymphadenopathy. Trachea midline. Heart: S1 S2. Regular rate and rhythm. Lungs: Fine bibasilar crackles. Abdomen: Soft, nontender, nondistended with bowel sounds. PEG tube without erythema or drainage or hematoma. Receiving tube feeds. No peritoneal signs. No palpable organomegaly or masses. Extremities: Normal skin color and turgor. No cyanosis, rash, ulceration, clubbing, or edema. Radial and pedal pulses are 2/4 bilaterally. Neurological: No focal deficits. Strength and sensation are grossly intact. - Labs CBC & Chem 7: 06/19/18 05:03 06/19/18 05:03 Labs: Abnormal Lab Results - Last 24 Hours (Table) 09/06/20/18 06/20/18 Range/Units 05:17 18:23 20:53 POC Glucose (mg/dL) 214 H 208 H (75-99) mg/dL Prealbumin 15.0 L (18.0-42.0) mg/dL 06/20/18 06/21/18 06/21/18 Range/Units 23:20 06:28 11:27 POC Glucose (mg/dL) 228 H 244 H 213 H (75-99) mg/dL Prealbumin (18.0-42.0) mg/dL Microbiology - Last 24 Hours (Table) 06/20/18 10:28 Gram Stain - Preliminary Pleural Fluid Body Fluid Culture - Preliminary Assessment and Plan (1) Dysphagia Narrative/Plan: Failed swallow and MBS unable to maintain nutritional needs. Status post percutaneous gastrostomy tube insertion Current Visit: Yes Status: Acute Code(s): R13.10 - DYSPHAGIA, UNSPECIFIED SNOMED Code(s): 13240769 (2) Acute right MCA stroke Current Visit: Yes Status: Acute Code(s): I63.511 - CEREB INFRC D/T UNSP OCCLS OR STENOS OF RIGHT MID CEREB ART SNOMED Code(s): 466212889 (3) GERD (gastroesophageal reflux disease) Current Visit: Yes Status: Acute Code(s): K21.9 - GASTRO-ESOPHAGEAL REFLUX DISEASE WITHOUT ESOPHAGITIS SNOMED Code(s): 131654537 Plan: 1. Continue tube feeds as advised. Discharge per medicine. We'll follow as needed. Assessment and plan a care discussed with Dr. Carrillo
--- NOTE | 2018-06-21 15:32 | PN ---
PROGRESS NOTE DATE OF SERVICE: 06/15/2018 CHIEF COMPLAINT: CVA. HISTORY OF PRESENT ILLNESS: This gentleman remains essentially stable. He is more alert each day. When he tries to talk, he is intelligible, but confused. PHYSICAL EXAM: Chest is fairly clear on both sides and the cardiac exam is normal and the abdomen is soft. The left-sided hemiparesis is the same. IMPRESSION: Cerebrovascular accident. PLAN: [place] efforts with speech, occupational, physical therapy and consider discharge plan. MMODL / IJN: [id number] /
--- NOTE | 2018-06-21 15:56 | P.CONS ---
History of Present Illness - Chief Complaint Gait disturbance, left hemiplegia - History of Present Illness I had the opportunity to see patient for inpatient reconsultation regard to gait disturbance. He is admitted to [facility] June to acute onset left- sided weakness for which is seen by Dr. Solis Garvin. Head CT demonstrates large right MCA infarct, intraparenchymal hematoma and old left frontal infarct. Symmetric Dr. Larsen who notes acute hypoxic respiratory failure, A. fib with RVR. Seen by Dr. Romero and Dr. newby. PT reports total assistance for bed mobility. OT reports total assistance for upper dressing and bathing and total assistance to person for lower dressing. Not appropriate for toileting or functional mobility. Speech therapy assess swallow and unsafe and recommend nothing by mouth. Previous functional history as elicited from daughter: 77-year-old right-handed white male who is a lives and 2 floor home alone. Retired. Daughter believes patient was independent with cooking, laundry, driving and is living alone. Please independent with standing shower and gait without device. Dr. Lance is regular doctor. No history of alcohol or tobacco. Review of Systems Review of systems: ENT: Denies sneezes or discharge. Eyes: Denies discharge or photophobia. Cardiac: Denies chest pain or palpitation. Pulmonary: Denies cough or shortness of breath. Gastrointestinal: Denies nausea, emesis, constipation, diarrhea. Genitourinary: Denies discharge or frequency. Musculoskeletal: Denies muscle or bone aches. Neurologic: Left-sided plegia and numbness. Mental status change with a aphasia and dysphagia. Endocrine: Denies shakes or sweats. Oncology: Denies cancers. Dermatologic: Denies rash, itching, pruritus. ALLERGY/immunology: Denies sneezes, rashes. Past Medical History Past Medical History: Coronary Artery Disease (CAD), CVA/TIA, GERD/Reflux, Hyperlipidemia, Hypertension Additional Past Medical History / Comment(s): TIA 2014. HYPOGLYCEMIC, History of Any Multi-Drug Resistant Organisms: None Reported Past Surgical History: Coronary Bypass/CABG, Tonsillectomy Additional Past Surgical History / Comment(s): QUAD CABG 2002. COLONOSCOPY in 2016-wnl per pt. egd see report Past Anesthesia/Blood Transfusion Reactions: No Reported Reaction Smoking Status: Never smoker Additional Past Alcohol Use History / Comment(s): Patient lives at home independently and has a dog in the home. - Past Family History Sister(s) Family Medical History: Cancer Additional Family Medical History / Comment(s): LUNG, BONE CA Medications and Allergies Home Medications Medication Instructions Recorded Confirmed Type Aspirin [Adult Low Dose Aspirin EC] 81 mg PO DAILY 06/30/17 06/12/18 History Atorvastatin [Lipitor] 10 mg PO DAILY 06/30/17 06/12/18 History Cholecalciferol (Vitamin D3) 2,000 unit PO DAILY 06/30/17 06/12/18 History [Vitamin D3] Cyanocobalamin (Vitamin B-12) 2,000 mcg PO DAILY 06/30/17 06/12/18 History [Vitamin B-12] Metoprolol Tartrate [Lopressor] 25 mg PO DAILY 06/12/18 06/12/18 History Omeprazole [PriLOSEC] 20 mg PO AC-BID 06/12/18 06/12/18 History Allergies Allergy/AdvReac Type Severity Reaction Status Date / Time Penicillins Allergy Unknown Verified 06/12/18 16:29 Physical Exam Vitals: Vital Signs Temp Pulse Pulse Pulse Resp BP Pulse Ox 06/21/18 15:00 98.2 F 70 18 132/66 94 L 06/21/18 06:15 97.6 F 62 20 150/65 94 L 06/20/18 23:30 97.9 F 64 20 125/64 95 06/20/18 20:06 72 16 06/20/18 20:00 98 F 72 72 72 16 146/72 98 06/20/18 16:00 70 96 16 141/68 96 Intake and Output 06/21/18 06/21/18 06/21/18 06:59 14:59 22:59 Intake Total 0 530 Output Total 1999 1000 Balance -2000 -470 Intake: IV 0 530 Clindamycin 600 mg In 50 Dextrose 5% in Water 50 ml @ 50 mls/hr IVPB Q8HR [facility] Rx#:[id number] Dextrose 5% in Water 1, 480 000 ml @ 60 mls/hr IV . [id number] [facility] Rx#:[id number] Invasive Line 5 0 Oral 0 Output: Urine 1999 999 Uretheral ([place]) 1000 Other: Voiding Method Indwelling Catheter # Bowel Movements 1 Weight 75.7 kg Skin: Atrophic, intact. General: Medium build and comfortable appearance. Head: Normocephalic, atraumatic. Eyes: Symmetric. Pupils equal round. Ears: Symmetric. Hearing within normal limits. Mouth: Clear. Neck: Supple. Carotid without bruit. Cardiac: Regular rate and rhythm. Lungs: Clear anteriorly and posteriorly. Abdomen: Soft active nontender. Extremities: Normal tone. Neurological: Mental status: Aphasic. Cranial nerves: Symmetric facial tone and trapezius. Motor: Active movement right arm and leg and plegic left arm and leg. Sensation: Depressed left side. DTRs: Symmetric and equal throughout. Mobility: Requires assistance for bed mobility. Results CBC & Chem 7: 06/19/18 05:03 06/19/18 05:03 Labs: Abnormal Lab Results - Last 24 Hours (Table) 06/19/18 06/20/18 06/20/18 Range/Units 05:17 18:23 20:53 POC Glucose (mg/dL) 214 H 208 H (75-99) mg/dL Prealbumin 15.0 L (18.0-42.0) mg/dL 06/20/18 06/21/18 06/21/18 Range/Units 23:20 06:28 11:27 POC Glucose (mg/dL) 228 H 244 H 213 H (75-99) mg/dL Prealbumin (18.0-42.0) mg/dL Microbiology - Last 24 Hours (Table) 06/20/18 10:28 Gram Stain - Preliminary Pleural Fluid Body Fluid Culture - Preliminary Assessment and Plan (1) Acute right MCA stroke Current Visit: Yes Status: Acute Code(s): I63.511 - CEREB INFRC D/T UNSP OCCLS OR STENOS OF RIGHT MID CEREB ART SNOMED Code(s): 995747065 Plan: Impression: 1. Gait disturbance. 2. Acute right MCA infarct resultant left hemiplegia, aphasia, dysphagia. 3. Hypertension. 4. Dyslipidemia. 5. Coronary artery disease. Comments and plan: At this time PT, OT, SENIOR PROJECT CONTROLS SPECIALIST ongoing. Patient however total assistance with limited endurance. Have discussed case with daughter and at this time would anticipate a protracted or slowed recovery course with inability to fully participate with inpatient rehab. Recommend subacute placement thus.
[2018-06-21 17:25] LABS: Glucose,Whole Blood 146 mg/dL (75-99)
[2018-06-21] MEDS: ATORVASTATIN 80 MG TAB PO SCH (20:29)
[2018-06-22] MEDS ORDERED: DEXAMETHASONE SOD PHOSPHATE 4 MG/ML 1 ML VIAL IV SCH ×2 (00:06)
[2018-06-22 00:22] LABS: Glucose,Whole Blood 215 mg/dL (75-99)
[2018-06-22] MEDS: INSULIN ASPART 100 UNIT/ML 1 ML 10 ML VIAL SQ SCH ×4 (00:31→18:13)
[2018-06-22] MEDS: CLINDAMYCIN 600 MG in DEXTROSE 5% IN WATER 50 ML IVPB SCH ×6 (00:31→15:45)
[2018-06-22 06:03] LABS: Glucose,Whole Blood 266 mg/dL (75-99)
--- NOTE | 2018-06-22 08:00 | CDI ---
Last Revision, September 2017 Documentation Clarification Form Date: 06/20/2018 10:45:00 AM From: Maddi Barker Admit Date: 06/12/2018 6:57:00 PM Patient Name: Ronny Harper Visit Number: [id number] ATTENTION: The Clinical Documentation Specialists (CDI) and [facility] Coding Staff appreciate your assistance in clarifying documentation. Please respond to the clarification below the line at the bottom and electronically sign. The CDI & [facility] Coding staff will review the response and follow-up if needed. Please note: Queries are made part of the Legal Health Record. If you have any questions, please contact the author of this message via ITS. Ky Hernandez MD, Can you please render your opinion on the following documentation? Pt. admitted with CVA 06/13 - 06/19 Documentation states patient is confused History/Risk factors: CAD, CVA/TIA, hyperlipidemia, HTN Clinical Indicators: Labs on admission: BUN 27, CR 1.47, 06/13: LACTIC 2.6,06/14: ABG PH 7.49, PC02 26, P02 52, HC03 20, 02 SAT 89.6. On 06/[address] Brain: 06/20 Re-demonstrated large right MCA territory hemorrhagic infarct with cytotoxic and vasogenic edema causing mass effect and similar 4 mm of leftward midline shift as well as leftward subfalcine herniation. The intraparenchymal hematoma shows some evolution now to acute and subacute blood products and continues to measure 2.7 cm on coronal series. Treatment: Consults: Neurology, ID .9@ 40ml/hr Advanced Neuro. assessments Oxygen @ 3L In your professional opinion, can you please clarify the patients mental status , if known? Anoxic Encephalopathy Metabolic Encephalopathy Septic Encephalopathy Toxic Encephalopathy Other, please specify Unable to determine Metabolic encephalopathy MTDD
[2018-06-22] MEDS: PANTOPRAZOLE 40 MG/10 ML VIAL IV SCH (08:18)
[2018-06-22 12:10] LABS: Glucose,Whole Blood 262 mg/dL (75-99)
--- NOTE | 2018-06-22 14:51 | PN ---
PROGRESS NOTE CHIEF COMPLAINT: CVA. HISTORY OF PRESENT ILLNESS: This gentleman seems to have reached a steady state. There has been no recent change. PHYSICAL EXAM: Chest is clear. Cardiac exam is normal and the abdomen is soft, nontender. IMPRESSION: Right-sided cerebrovascular accident with left hemiparesis. PLAN: 1. Continue on current program. 2. DC Dana. MICHELLE / CANDYN: [id number] /
[2018-06-22 17:54] LABS: Glucose,Whole Blood 228 mg/dL (75-99)
[2018-06-22] MEDS: ATORVASTATIN 80 MG TAB PO SCH (22:02)
--- NOTE | 2018-06-22 22:36 | P.PN ---
Subjective Progress Note Date: 06/22/18 This is a 77-year-old male patient who was found outside his home possibly on the ground for 1-2 hours he was brought into [facility] emergency center for evaluation he was noticed to have a left-sided droop and left-sided weakness he underwent a CAT scan of the brain revealed degenerative changes and nonspecific white matter changes possible remote ischemia and the left frontal lobe. Acute hemorrhage assessment limited due to motion artifact. No sizable obvious intraparenchymal hemorrhage. CTA of the head and neck showed no evidence of hemodynamically significant stenosis. No aneurysm or dissection. Moderate spondylotic changes in the cervical spine and stenosis. Initial chest x-ray showed no acute cardio pulmonary disease. Patient was admitted initially to the selective care unit and started on aspirin Lipitor he says currently he developed respiratory distress, A. fib with RVR and he was transferred into the intensive care unit this morning. He has been switched from nasal cannula to nonrebreather and now on BiPAP. He is currently on Cardizem drip their consult in place with Dr. Larsen from intensive care management, cardiology and Dr. Hackett. Patient does have MRI of the brain and lumbar spine as well as EEG ordered by Dr. Hackett. At this point these will not be able to be completed and a repeat CAT scan of the brain has been ordered here at echocardiogram has been ordered. Dr. Larsen is started patient on clindamycin and ceftriaxone for possible aspiration pneumonia. History is obtained from the record and from nursing staff. Patient is unable to provide any information. Daughter from out of state is at the bedside and states that she talks to him on the phone every day he is independent and manages well at home prior to this. Patient had a lactic acid drawn which was 2.6 and repeat was 2.6, white blood count is 5.7, creatinine 1.47, alkaline phosphatase 137, CK 428. Urine was negative for infection but culture is in progress. Temperature maximum 101.9 06/19/2018 patient is doing better today. He has no complaints, visitors present and he is communicating with them relatively well. Although thought content is still poor at times. Tolerating the antibiotic therapy well. No fevers or chills. 06/22/2018 remains improved with AFib well controlled, no new complaint, doing well with PEG tube and tolerating current feeding. Objective - Vital Signs Vital signs: Vital Signs Temp 98.3 F 06/22/18 15:00 Pulse 66 06/22/18 15:00 Resp 20 06/22/18 15:00 BP 140/58 06/22/18 15:00 Pulse Ox 98 06/22/18 15:00 Intake & Output 06/22/18 06/22/18 06/23/18 06:59 18:59 06:59 Intake Total 440 Output Total 2000 600 Balance -1999 -160 Weight 75.7 kg 75.7 kg Intake: IV 50 Clindamycin 600 mg In 50 Dextrose 5% in Water 50 ml @ 50 mls/hr IVPB Q8HR [facility] Rx#:[id number] Tube Feeding 390 Output: Urine 1999 600 Other: Voiding Method Indwelling Catheter Diaper - Exam Gen: This is a 77-year-old male patient seen in the intensive care unit. He is currently on BiPAP with moderate distress noted. HEENT: Head is atraumatic, normocephalic. Pupils equal, round. Sclerae is anicteric. NECK: Supple. No JVD. No lymphadenopathy. No thyromegaly. LUNGS: There is symmetrical air entry, few crackles at the bilateral bases right greater than left no distinct dullness HEART: Regular rate and rhythm. No murmur. ABDOMEN: Soft. Bowel sounds are present. No masses. No tenderness. EXTREMITIES: No pedal edema. No calf tenderness. Dorsalis pedis +2 bilaterally. NEUROLOGICAL: Patient arousable, comfortable - Labs CBC & Chem 7: 06/19/18 05:03 06/19/18 05:03 Labs: Abnormal Lab Results - Last 24 Hours (Table) 06/22/18 06/22/18 06/22/18 Range/Units 00:09 06:01 12:08 POC Glucose (mg/dL) 215 H 266 H 262 H (75-99) mg/dL 06/22/18 Range/Units 17:25 POC Glucose (mg/dL) 228 H (75-99) mg/dL Microbiology - Last 24 Hours (Table) 06/20/18 10:28 Gram Stain - Preliminary Pleural Fluid Body Fluid Culture - Preliminary Laboratory Results WBC 14.7 k/uL (3.8-10.6) H 06/19/18 05:03 RBC 4.36 m/uL (4.30-5.90) 06/19/18 05:03 Hgb 13.2 gm/dL (13.0-17.5) 06/19/18 05:03 Hct 41.8 % (39.0-53.0) 06/19/18 05:03 MCV 95.8 fL (80.0-100.0) 06/19/18 05:03 MCH 30.4 pg (25.0-35.0) 06/19/18 05:03 MCHC 31.7 g/dL (31.0-37.0) 06/19/18 05:03 RDW 13.9 % (11.5-15.5) 06/19/18 05:03 Plt Count 181 k/uL (150-450) 06/19/18 05:03 Neutrophils % 87 % 06/19/18 05:03 Lymphocytes % 4 % 06/19/18 05:03 Monocytes % 7 % 06/19/18 05:03 Eosinophils % 0 % 06/19/18 05:03 Basophils % 0 % 06/19/18 05:03 Neutrophils # 12.8 k/uL (1.3-7.7) H 06/19/18 05:03 Lymphocytes # 0.7 k/uL (1.0-4.8) L 06/19/18 05:03 Monocytes # 1.0 k/uL (0-1.0) 06/19/18 05:03 Eosinophils # 0.0 k/uL (0-0.7) 06/19/18 05:03 Basophils # 0.0 k/uL (0-0.2) 06/19/18 05:03 PT 10.1 sec (9.0-12.0) 06/12/18 15:58 INR 1.0 (<1.2) 06/12/18 15:58 APTT 18.6 sec (22.0-30.0) L 06/12/18 15:58 Sample Site rrad 06/14/18 06:54 ABG pH 7.49 (7.35-7.45) H 06/14/18 06:54 ABG pCO2 26 mmHg (35-45) L 06/14/18 06:54 ABG pO2 52 mmHg (83-108) L* 06/14/18 06:54 ABG HCO3 20 mmol/L (21-25) L 06/14/18 06:54 ABG Total CO2 21 mmol/L (19-24) 06/14/18 06:54 ABG O2 Saturation 89.6 % (94-97) L 06/14/18 06:54 ABG Base Excess -3.5 mmol/L 06/14/18 06:54 Christophe Test Yes 06/14/18 06:54 FiO2 100 % 06/14/18 06:54 Sodium 137 mmol/L (137-145) 06/19/18 05:03 Potassium 4.7 mmol/L (3.5-5.1) 06/19/18 05:03 Chloride 109 mmol/L (98-107) H 06/19/18 05:03 Carbon Dioxide 19 mmol/L (22-30) L 06/19/18 05:03 Anion Gap 9 mmol/L 06/19/18 05:03 BUN 54 mg/dL (9-20) H 06/19/18 05:03 Creatinine 1.33 mg/dL (0.66-1.25) H 06/19/18 05:03 Est GFR (CKD-EPI)AfAm 60 (>60 ml/min/1.73 sqM) 06/19/18 05:03 Est GFR (CKD-EPI)NonAf 52 (>60 ml/min/1.73 sqM) 06/19/18 05:03 Glucose 158 mg/dL (74-99) H 06/19/18 05:03 POC Glucose (mg/dL) 228 mg/dL (75-99) H 06/22/18 17:25 POC Glu Dielectric Machine Operator TYLER Dee Multani 06/22/18 17:[address] Glu mg/dL 157 06/13/18 21:12 Hemoglobin A1c 7.1 % (4.0-6.0) H 06/13/18 21:12 Lactic Ac Sepsis Rflx Y 06/13/18 21:54 Plasma Lactic Acid Raheem 2.6 mmol/L (0.7-2.0) H* 06/14/18 01:50 Calcium 8.5 mg/dL (8.4-10.2) 06/19/18 05:03 Phosphorus 4.4 mg/dL (2.5-4.5) 06/19/18 05:03 Magnesium 2.6 mg/dL (1.6-2.3) H 06/19/18 05:03 Total Bilirubin 0.6 mg/dL (0.2-1.3) 06/12/18 15:58 AST 42 U/L (17-59) 06/12/18 15:58 ALT 35 U/L (21-72) 06/12/18 15:58 Alkaline Phosphatase 137 U/L (38-126) H 06/12/18 15:58 Total Creatine Kinase 428 U/L (55-170) H 06/12/18 15:58 CK-MB (CK-2) 4.7 ng/mL (0.0-2.4) H 06/12/18 15:58 CK-MB (CK-2) Rel Index 1.1 06/12/18 15:58 Troponin I <0.012 ng/mL (0.000-0.034) 06/12/18 15:58 Total Protein 6.8 g/dL (6.3-8.2) 06/12/18 15:58 Albumin 4.0 g/dL (3.5-5.0) 06/12/18 15:58 Prealbumin 15.0 mg/dL (18.0-42.0) L 06/19/18 05:17 Triglycerides 59 mg/dL (<150) 06/13/18 05:47 Cholesterol 129 mg/dL (<200) 06/13/18 05:47 LDL Cholesterol, Calc 67 mg/dL (0-99) 06/13/18 05:47 HDL Cholesterol 50 mg/dL (40-60) 06/13/18 05:47 Urine Color Yellow 06/13/18 21:00 Urine Appearance Clear (Clear) 06/13/18 21:00 Urine pH 5.5 (5.0-8.0) 06/13/18 21:00 Ur Specific [place] 1.021 (1.001-1.035) 06/13/18 21:00 Urine Protein 1+ (Negative) H 06/13/18 21:00 Urine Glucose (UA) Trace (Negative) H 06/13/18 21:00 Urine Ketones Negative (Negative) 06/13/18 21:00 Urine Blood Trace (Negative) H 06/13/18 21:00 Urine Nitrite Negative (Negative) 06/13/18 21:00 Urine Bilirubin Negative (Negative) 06/13/18 21:00 Urine Urobilinogen <2.0 mg/dL (<2.0) 06/13/18 21:00 Ur Leukocyte Esterase Negative (Negative) 06/13/18 21:00 Urine RBC 2 /hpf (0-5) 06/13/18 21:00 Urine WBC 1 /hpf (0-5) 06/13/18 21:00 Ur Squamous Epith Cells <1 /hpf (0-4) 06/13/18 21:00 Urine Mucus Rare /hpf (None) H 06/13/18 21:00 Fluid Source 06/20/18 10:28 Fluid Appearance 06/20/18 10:28 Fluid RBC /uL 06/20/18 10:28 Fluid Nucleated Cells /uL 06/20/18 10:28 Fluid Polynuclear WBCs % 06/20/18 10:28 Fluid Mononuclear WBCs % 06/20/18 10:28 Fluid Eosinophils % 06/20/18 10:28 Body Fluid Glucose Source 06/20/18 10:28 Fluid Glucose mg/dL 06/20/18 10:28 Body Fluid Protein Source 06/20/18 10:28 Fluid Total Protein mg/dL 06/20/18 10:28 Body Fluid LDH Source 06/20/18 10:28 Fluid LDH U/L 06/20/18 10:28 Microbiology 06/20/18 10:28 Pleural Fluid Gram Stain - Preliminary 06/20/18 10:28 Pleural Fluid Body Fluid Culture - Preliminary 06/13/18 05:54 Blood Blood Culture - Final No Growth after 144 hours 06/13/18 05:47 Blood Blood Culture - Final No Growth after 144 hours Assessment and Plan (1) Acute right MCA stroke Current Visit: Yes Status: Acute Code(s): I63.511 - CEREB INFRC D/T UNSP OCCLS OR STENOS OF RIGHT MID CEREB ART SNOMED Code(s): 575467103 (2) Dysphagia Current Visit: Yes Status: Acute Code(s): R13.10 - DYSPHAGIA, UNSPECIFIED SNOMED Code(s): 56557476 (3) Aspiration pneumonia Narrative/Plan: 77 year old man with large stroke had developed a fever which is now improving with hydration and antibiotic therapy directed toward aspiration pneumonia. The fever is multifactorial including the stroke, and the aspiration pneumonitis. Antimicrobial therapy is adjusted, there is notation of a penicillin ALLERGY of undetermined severity, clindamycin will be continued, Pseudomonas will be treated by changing Rocephin to ceftazidime. Prognosis is very poor, appears Afib as eitology of the stroke. Patient is somewhat improved today. Pulmonary status is improved. Doing well with current antibiotic therapy of clindamycin, cefotaxime was discontinued by pulmonary critical care. The patient has had swallow study the continues to show evidence of some silent aspiration. If this is further improved his diet will be advanced. He continues to have difficulties GI has evaluated will offer him PEG tube. Continue clindamycin for now until this has been fully assessed. 06/22/2018 the patient is stable and showing further improvement. He has had his PEG tube placed and is tolerating advancing tube feeds well. His pulmonary status is stable he has been about a by pulmonary critical care and they agreed that his pulmonary status is now improved. Appears at aspiration pneumonia has improved consequently will be able to discontinue clindamycin. Continue pulmonary toileting and head of bed elevation with tube feeds to limit further aspiration. Current Visit: Yes Status: Acute Code(s): J69.0 - PNEUMONITIS DUE TO INHALATION OF FOOD AND VOMIT SNOMED Code(s): 434042588
[2018-06-23 00:19] LABS: Glucose,Whole Blood 299 mg/dL (75-99)
[2018-06-23] MEDS: CLINDAMYCIN 600 MG in DEXTROSE 5% IN WATER 50 ML IVPB SCH ×8 (00:22→23:38)
[2018-06-23] MEDS: INSULIN ASPART 100 UNIT/ML 1 ML 10 ML VIAL SQ SCH ×5 (00:22→23:57)
[2018-06-23 06:09] LABS: Glucose,Whole Blood 366 mg/dL (75-99)
--- NOTE | 2018-06-23 08:23 | CDI ---
Last Revision, September 2017 Documentation Clarification Form Date: 06/23/18 From: Maddi Barker RN Admit Date: 06/12/2018 6:57:00 PM Patient Name: Ronny Harper Visit Number: [id number] ATTENTION: The Clinical Documentation Specialists (CDI) and [facility] Coding Staff appreciate your assistance in clarifying documentation. Please respond to the clarification below the line at the bottom and electronically sign. The CDI & [facility] Coding staff will review the response and follow-up if needed. Please note: Queries are made part of the Legal Health Record. If you have any questions, please contact the author of this message via ITS. Dr. Ata Lance MD, Can you please render your opinion on the following documentation? Pt. admitted with CVA History/Risk Factors: CAD, CVA/TIA, hyperlipidemia, HTN, CABG Clinical Indicators: Labs on admission: Albumin 4.0, Total Protein 6.8: [id number] Current BM: 22.6 Insufficient energy intake: yes Dietary Consult: states pt is underweight, inadequate energy intake, failed swallow eval. Treatment: Peg Tube Supplements/TPN: tube feeding, Jevity 1.5 Lab monitoring Dietary consult In your professional opinion, can you please clarify if these findings signify one of the following conditions? Mild Protein-Calorie Malnutrition Moderate Protein-Calorie Malnutrition Severe Protein-Calorie Malnutrition Malnutrition, Unspecified Other condition, please specify Unable to determine MTDD
[2018-06-23] MEDS: PANTOPRAZOLE 40 MG/10 ML VIAL IV SCH (08:58)
--- NOTE | 2018-06-23 11:13 | CDI ---
Last Revision, September 2017 Documentation Clarification Form Date: 06/20/2018 10:48:00 AM From: Maddi Barker RN Admit Date: 06/12/2018 6:57:00 PM Patient Name: Ronny Harper Visit Number: [id number] ATTENTION: The Clinical Documentation Specialists (CDI) and [facility] Coding Staff appreciate your assistance in clarifying documentation. Please respond to the clarification below the line at the bottom and electronically sign. The CDI & [facility] Coding staff will review the response and follow-up if needed. Please note: Queries are made part of the Legal Health Record. If you have any questions, please contact the author of this message via ITS. Ata Vasquez MD, (Second attempt) Documentation states: Renal function stable History/Risk Factors: CAD, CVA/TIA, hyperlipidemia, HTN Clinical indicators: Baseline 01/13 Out pt. lab draw: BUN 24, CR. 1.70, GFR 38 Abnormal on admission: BUN 27, CR. 1.47, GFR 52, ON 06/19 BUN 54, CR. 1.33, GFR 45 Treatment: .9 500ML Bolus x1, .9 @ 60ml/hr These Labs are Clinical significant, can you please render your opinion. Please clarify what abnormal laboratory signifies: Disease process, please specify Acute Kidney injury Acute Kidney failure CKD Stage 3 (GFR 30-59) CKD Stage 4 (GFR 15-29) Unable to determine Other, please specify MTDD
--- NOTE | 2018-06-23 11:19 | CDI ---
Documentation Clarification Form Date: 06/23/18 CDS: Maddi Barker RN Admit Date: 06/12/18 Patient Name: Ronny Harper ATTENTION: The Clinical Documentation Specialists (CDI) and [facility] Coding Staff appreciate your assistance in clarifying documentation. Please respond to the clarification below the line at the bottom and electronically sign. The CDI & [facility] Coding staff will review the response and follow-up if needed. Please note: Queries are made part of the Legal Health Record. If you have any questions, please contact the author of this message via ITS. Dr. Ata Lance MD, (third request), Can you please render your opinion on the following documentation? History/Risk Factors: CAD, CVA/TIA, hyperlipidemia, HTN, CABG Clinical Indicators: Labs on admission: Albumin 4.0, Total Protein 6.8: [id number] Current BM :22.6 Insufficient energy intake: yes Treatment: Dietary Consult: states pt is underweight, inadequate energy intake, failed swallow eval Supplements/TPN: tube feeding Jevity 1.5 Lab monitoring In your professional opinion, can you please clarify if these findings signify one of the following conditions? Mild Protein-Calorie Malnutrition Moderate Protein-Calorie Malnutrition Malnutrition, Unspecified Other condition, please specify Unable to determine MTDD
--- NOTE | 2018-06-23 11:34 | MISC ---
MISCELLANOUS REPORT QUERY He is CKD stage 3. MMODL / IJN: [id number] /
--- NOTE | 2018-06-23 11:40 | MISC ---
MISCELLANOUS REPORT QUERY I would say mild protein-calorie malnutrition. MMESTEVAN / CANDYN: [id number] /
[2018-06-23 12:07] LABS: Glucose,Whole Blood 330 mg/dL (75-99)
--- NOTE | 2018-06-23 15:43 | PN ---
PROGRESS NOTE CHIEF COMPLAINT: CVA. HISTORY OF PRESENT ILLNESS: This patient has been stable and there has been no interval change or improvement. The Cortez catheter was removed yesterday, but he did not void and it will be replaced. He had a residual over 500 mL. PHYSICAL EXAM: Vital signs normal. Color is good. Chest demonstrates occasional rhonchi. Cardiac exam is normal. IMPRESSION: 1. Cerebrovascular accident with left hemiparesis. 2. Urinary retention. PLAN: 1. Replace Cortez. 2. Await plans for discharge. MMODL / IJN: [id number] /
[2018-06-23 17:43] LABS: Glucose,Whole Blood 248 mg/dL (75-99)
[2018-06-23] MEDS: ATORVASTATIN 80 MG TAB PO SCH (20:40)
[2018-06-23] MEDS: INSULIN DETEMIR 100 UNIT/ML 10 ML VIAL SQ SCH (21:14)
[2018-06-23 23:56] LABS: Glucose,Whole Blood 301 mg/dL (75-99)
[2018-06-24 06:24] LABS: Glucose,Whole Blood 315 mg/dL (75-99)
[2018-06-24] MEDS: INSULIN ASPART 100 UNIT/ML 1 ML 10 ML VIAL SQ SCH ×3 (06:24→17:49)
[2018-06-24 08:02] LABS: Glucose,Whole Blood 252 mg/dL (75-99)
[2018-06-24] MEDS: CLINDAMYCIN 600 MG in DEXTROSE 5% IN WATER 50 ML IVPB SCH ×4 (09:21→17:49)
[2018-06-24] MEDS: PANTOPRAZOLE 40 MG/10 ML VIAL IV SCH (09:21)
[2018-06-24] MEDS: cloNIDine 0.2 MG/24HR PATCH TRANSDERM SCH (09:21)
[2018-06-24 12:00] LABS: Glucose,Whole Blood 273 mg/dL (75-99)
--- NOTE | 2018-06-24 12:44 | PN ---
PROGRESS NOTE DATE OF SERVICE: 06/24/2018. CHIEF COMPLAINT: CVA. HISTORY OF PRESENT ILLNESS: This gentleman is doing well and awaits transfer probably to [facility] on Tuesday. Cortez had to be replaced. PHYSICAL EXAM: He is more alert today. Breath sounds are heard on both sides. Cardiac exam is normal. Abdomen is soft. IMPRESSION: Cerebrovascular accident. PLAN: Start Flomax 0.4 once a day and remove Cortez in 2-3 days. MMODL / IJN: [id number] /
[2018-06-24 17:46] LABS: Glucose,Whole Blood 310 mg/dL (75-99)
[2018-06-24] MEDS: ATORVASTATIN 80 MG TAB PO SCH (20:09)
[2018-06-24] MEDS: INSULIN DETEMIR 100 UNIT/ML 10 ML VIAL SQ SCH (21:52)
[2018-06-25] MEDS: INSULIN ASPART 100 UNIT/ML 1 ML 10 ML VIAL SQ SCH ×4 (00:25→17:53)
[2018-06-25] MEDS: CLINDAMYCIN 600 MG in DEXTROSE 5% IN WATER 50 ML IVPB SCH ×8 (00:25→23:29)
[2018-06-25 00:31] LABS: Glucose,Whole Blood 275 mg/dL (75-99)
[2018-06-25 06:19] LABS: Glucose,Whole Blood 257 mg/dL (75-99)
[2018-06-25] MEDS: PANTOPRAZOLE 40 MG/10 ML VIAL IV SCH (08:31)
[2018-06-25] MEDS ORDERED: TAMSULOSIN 0.4 MG CAP.ER.24H PO SCH (12:00)
[2018-06-25 12:11] LABS: Glucose,Whole Blood 228 mg/dL (75-99)
[2018-06-25] MEDS: ACETAMINOPHEN TAB 325 MG TAB PO PRN (15:12)
[2018-06-25] MEDS: DOXAZOSIN 1 MG TAB PO SCH (15:12)
[2018-06-25] MEDS: ONDANSETRON 4 MG/2 ML VIAL IVP PRN (15:13)
[2018-06-25 17:46] LABS: Glucose,Whole Blood 299 mg/dL (75-99)
[2018-06-25] MEDS: ATORVASTATIN 80 MG TAB PO SCH (20:47)
[2018-06-25 20:56] LABS: Glucose,Whole Blood 215 mg/dL (75-99)
[2018-06-25] MEDS ORDERED: INSULIN DETEMIR 100 UNIT/ML 10 ML VIAL SQ SCH (21:00)
[2018-06-26 00:14] LABS: Glucose,Whole Blood 297 mg/dL (75-99)
[2018-06-26] MEDS: INSULIN ASPART 100 UNIT/ML 1 ML 10 ML VIAL SQ SCH ×3 (00:27→13:48)
[2018-06-26 06:46] LABS: Glucose,Whole Blood 242 mg/dL (75-99)
[2018-06-26 08:01] VITALS: BP 109/50; PULSE 63; RESP 18; TEMP 97.5
[2018-06-26] MEDS: CLINDAMYCIN 600 MG in DEXTROSE 5% IN WATER 50 ML IVPB SCH ×2 (08:58)
[2018-06-26] MEDS: DOXAZOSIN 1 MG TAB PO SCH (08:59)
[2018-06-26] MEDS: PANTOPRAZOLE 40 MG/10 ML VIAL IV SCH (08:59)
[2018-06-26] MEDS: ONDANSETRON 4 MG/2 ML VIAL IVP PRN (10:29)
[2018-06-26] MEDS: ACETAMINOPHEN TAB 325 MG TAB PO PRN (10:29)
[2018-06-26 11:36] LABS: Glucose,Whole Blood 164 mg/dL (75-99)
--- NOTE | 2018-06-26 12:25 | DS ---
DISCHARGE SUMMARY DATE OF SERVICE: 06/26/2018. CHIEF COMPLAINT: Right-sided CVA with left-sided weakness. HISTORY OF PRESENT ILLNESS AND PHYSICAL EXAM: Details of this man's history and physical can be found in the initial workup. LABORATORY STUDIES: While he was in a hospital he had laboratory studies, details of which can be found in the laboratory section of his chart. COURSE IN HOSPITAL: After admission he was placed on bedrest, started on intravenous fluids and frequent monitoring of his neurologic status and vital signs. Initially, he deteriorated quickly and became semicomatose and then he developed fever probably after aspiration. He was moved to ICU where he gradually improved and became more awake and alert. He never regained movement on the left side. He did have retained speech, but he remained confused. He failed swallow evaluation and a PEG tube was placed. He is doing well and it was felt that he could go to a alf on the . He was not voiding well and been placed on alpha-thalia and his Cortez catheter will be removed. FINAL DIAGNOSES: 1. Right-sided cerebrovascular accident with left hemiparesis. 2. Aspiration pneumonia. 3. Hypertension. 4. Coronary artery disease. 5. Urinary retention. OPERATIONS: PEG tube placement. CONSULTATIONS: Surgery, Neurology as well as Intensive Medicine/Pulmonology. He is improved. MMODL / IJN: [id number] /
--- NOTE | 2018-06-28 12:12 | PN ---
PROGRESS NOTE DATE OF SERVICE: 06/25/2018. CHIEF COMPLAINT: CVA. HISTORY OF PRESENT ILLNESS: This gentleman has been stable and awaits discharge probably tomorrow. PHYSICAL EXAM: Neurologically he is unchanged. Chest is clear. Cardiac exam is normal. IMPRESSION: Right-sided cerebrovascular accident with left hemiparesis. PLAN: Try to remove Cortez before [facility] the [facility]. He will likely go tomorrow. MMODL / IJN: [id number] /
== END 2018-06-26 15:20 | DRG 64 ==
LOC: EC 15:51 → 6SEL 18:57 → 6ICU 06-14 07:53 → 6SEL 06-19 05:10 → 4MS4W 06-20 23:07
PROVIDERS: ADMIT Family Medicine; ATTEND Family Medicine
PROC: 0DH63UZ Insertion of Feeding Device into Stomach, Percutaneous Approach (ICD-10-PCS; principal; 2018-06-20 09:10)
DX: I63.511 Cerebral infarction due to unspecified occlusion or stenosis of right middle cerebral artery (principal); J96.01 Acute respiratory failure with hypoxia; J69.0 Pneumonitis due to inhalation of food and vomit; G93.41 Metabolic encephalopathy; G81.94 Hemiplegia, unspecified affecting left nondominant side; I25.810 Atherosclerosis of coronary artery bypass graft(s) without angina pectoris; E44.1 Mild protein-calorie malnutrition; R29.810 Facial weakness; R56.9 Unspecified convulsions; E78.5 Hyperlipidemia, unspecified; K21.9 Gastro-esophageal reflux disease without esophagitis; R47.01 Aphasia; I12.9 Hypertensive chronic kidney disease with stage 1 through stage 4 chronic kidney disease, or unspecified chronic kidney disease; N18.3 Chronic kidney disease, stage 3 (moderate); E11.22 Type 2 diabetes mellitus with diabetic chronic kidney disease; R29.710 NIHSS score 10; R13.12 Dysphagia, oropharyngeal phase; I48.0 Paroxysmal atrial fibrillation; W01.0XXA Fall on same level from slipping, tripping and stumbling without subsequent striking against object, initial encounter; Z66 Do not resuscitate; R33.9 Retention of urine, unspecified; Z88.0 Allergy status to penicillin; Z79.82 Long term (current) use of aspirin; Z79.899 Other long term (current) drug therapy; Y92.007 Garden or yard of unspecified non-institutional (private) residence as the place of occurrence of the external cause; Z95.1 Presence of aortocoronary bypass graft; Z80.1 Family history of malignant neoplasm of trachea, bronchus and lung; Z80.8 Family history of malignant neoplasm of other organs or systems; Z86.73 Personal history of transient ischemic attack (TIA), and cerebral infarction without residual deficits
CPT/HCPCS: 36415; 36600; 43246; 70450; 70496; 70498; 71045; 71046; 74230; 80048; 80053; 80061; 81001; 82550; 82553; 82805; 82945; 83036; 83605; 83615; 83735; 84100; 84132; 84134; 84157; 84484; 85025; 85610; 85730; 87040; 87070; 87205; 89050; 93005; 93306; 94640; 94660; 94760; 95819; 96360; 99291

== ENCOUNTER 2018-07-24 18:12 | Inpatient (IN) | payer MEDICARE, BC ==
[2018-07-24] MEDS ORDERED: ACETAMINOPHEN TAB 325 MG TAB PO STA (18:14)
[2018-07-24] MEDS ORDERED: SODIUM CHLORIDE 0.9% 500 ML 500 ML IV ONE ×2 (18:15→18:53)
[2018-07-24] MEDS ORDERED: cefTRIAXone 2,000 MG in SODIUM CHLORIDE 0.9% 100 ML IVPB STA (18:26)
--- NOTE | 2018-07-24 18:26 | ED ---
General Adult HPI - General Chief complaint: Urogenital Stated complaint: sepsis Time Seen by Provider: 07/24/18 18:14 Source: patient, EMS, RN notes reviewed, old records reviewed Mode of arrival: EMS Limitations: no limitations - History of Present Illness Initial comments: 77-year-old male presents from long-term for evaluation of fever and elevated white blood cell count. Patient had CVA with left-sided deficit approximately one month ago. His been in the long-term for rehabilitation. He has an indwelling Cortez catheter. All over the past 24 hours he has had elevated temperature, urine testing and laboratory studies were sent today and revealed that the patient did have urinary tract infection and elevated white blood cell count. He was started on Bactrim he received 1 dose today according to EMS. During transport patient had low blood pressure in the 80s systolic and temperature of 101. Patient has no specific complaints the time my evaluation. He does report a mild cough, no chest pain, no abdominal pain, no history of vomiting or diarrhea. - Related Data Home Medications Medication Instructions Recorded Confirmed Aspirin [Adult Low Dose Aspirin EC] 81 mg PEG/G-TUBE DAILY@1700 06/30/17 Omeprazole [PriLOSEC] 20 mg PEG/G-TUBE BID@0800,1700 06/12/18 07/24/18 Acetaminophen Tab [Tylenol Tab] 650 mg PO Q4H PRN 07/24/18 07/24/18 Amino Acids/Protein Hydrolys 30 ml PEG/G-TUBE BID@0800,1700 07/24/18 07/24/18 [Pro-Stat Supplement] Bisacodyl [Dulcolax] 10 mg RECTAL DAILY PRN 07/24/18 07/24/18 Bismuth Subsalicylate 524 mg PEG/G-TUBE BID@0800,2100 07/24/18 07/24/18 [Pepto-Bismol] Doxazosin [Cardura] 1 mg PEG/G-TUBE DAILY@0800 07/24/18 07/24/18 Insulin Detemir [Levemir] 40 unit SQ HS@2100 07/24/18 07/24/18 Jevity 1.5 Sukhdev Liquid 1 can PEG/G-TUBE DIRECTED@0200 07/24/18 07/24/18 Jevity 1.5 Sukhdev Liquid 1 can PEG/G-TUBE 07/24/18 07/24/18 DIRECTED@,,18 Jevity 1.5 Sukhdev Liquid 2 can PEG/G-TUBE DIRECTED@199907/24/18 07/24/18 Magnesium Hydroxide [Milk of 7,200 mg PO DAILY PRN 07/24/18 07/24/18 Magnesia Concentrate] Melatonin 1 mg PEG/G-TUBE HS@209907/24/18 07/24/18 Metoprolol Tartrate [Lopressor] 25 mg PEG/G-TUBE DAILY@0800 07/24/18 07/24/18 Na Phos,M-B/Na Phos,Di-Ba [Fleet 133 ml RECTAL ONCE PRN 07/24/18 07/24/18 Adult] Sulfamethox-Tmp 800-160Mg [Bactrim 1 tab PEG/G-TUBE BID@0800,2100 07/24/1807/24 DS 800-160 mg] cloNIDine 0.2 MG/24HR PATCH 1 patch TRANSDERM TU@0800 07/24/18 07/24/18 [Catapres-TTS] Previous Rx's Medication Instructions Recorded Ipratropium-Albuterol Nebulize 3 ml INHALATION RT-QID PRN #120 06/26/18 [Duoneb 0.5 mg-3 mg/3 ml Soln] ampul.neb Allergies Allergy/AdvReac Type Severity Reaction Status Date / Time Penicillins Allergy Unknown Verified 07/24/18 18:17 Review of Systems ROS Statement: Those systems with pertinent positive or pertinent negative responses have been documented in the HPI. ROS Other: All systems not noted in ROS Statement are negative. Past Medical History Past Medical History: Coronary Artery Disease (CAD), CVA/TIA, GERD/Reflux, Hyperlipidemia, Hypertension Additional Past Medical History / Comment(s): TIA 2014. HYPOGLYCEMIC, History of Any Multi-Drug Resistant Organisms: None Reported Past Surgical History: Coronary Bypass/CABG, Tonsillectomy Additional Past Surgical History / Comment(s): QUAD CABG 2002. COLONOSCOPY in 2016-wnl per pt. egd see report Past Anesthesia/Blood Transfusion Reactions: No Reported Reaction Past Psychological History: No Psychological Hx Reported Smoking Status: Never smoker Past Alcohol Use History: None Reported Past Drug Use History: None Reported - Past Family History Sister(s) Family Medical History: Cancer Additional Family Medical History / Comment(s): LUNG, BONE CA General Exam Limitations: no limitations General appearance: alert, in no apparent distress Head exam: Present: atraumatic, normocephalic Eye exam: Present: normal appearance, PERRL ENT exam: Present: mucous membranes dry Neck exam: Present: normal inspection. Absent: tenderness, meningismus Respiratory exam: Present: rhonchi, decreased breath sounds. Absent: respiratory distress, wheezes Cardiovascular Exam: Present: regular rate, normal rhythm GI/Abdominal exam: Present: soft, other (PEG tube site, clean dry and intact, no erythema, no cellulitis). Absent: distended, tenderness, guarding Extremities exam: Present: other (Rash located on the left foot and right ankle) . Absent: pedal edema, joint swelling Neurological exam: Present: alert, motor sensory deficit (Residual left-sided deficit) Skin exam: Present: warm, dry, rash, petechiae (Right ankle, left dorsal foot) Course Vital Signs 07/24/18 07/24/18 07/24/18 18:13 18:30 19:01 Temperature 99.1 F Pulse Rate 87 78 Respiratory 18 16 Rate Blood Pressure 105/66 105/56 95/57 O2 Sat by Pulse 96 Oximetry - Reevaluation(s) Reevaluation #1: 07/24/18 19:56 Folly catheter changed in the emergency department 07/24/18 19:56 EKG Findings - EKG Comments: EKG Findings:: EKG: Sinus rhythm with sinus arrhythmia, rate of 82, W[place] interval 138, QRS duration 84, QTC [address] segment elevation or depression. Medical Decision Making - Medical Decision Making 77-year-old male presenting with suspected sepsis, fever, elevated white blood cell count and positive urinalysis. Patient was febrile by EMS at 101. And had low blood pressure in the 80 systolic. Blood pressure had been stable while in the emergency department after fluid hydration. Patient has elevated white blood cell count 27.3, hemoglobin 10.5, chest x-ray negative for focal pneumonia. Creatinine is elevated 1.55, lactic acid is mildly elevated 2.8. Urinalysis is positive for greater than 182 white cells and many bacteria. Antibiotics are initiated, Cortez catheter is changed in the emergency department. Patient will be kept for IV hydration, IV antibiotics and reevaluation. Blood culture and urine culture are pending. Case discussed with admitting physician Dr. Lance who will accept. - Lab Data Result diagrams: 07/24/18 18:21 07/24/18 18:21 Lab Results 07/24/18 07/24/18 07/24/18 Range/Units 18:21 18:21 18:21 WBC 27.3 H (3.8-10.6) k/uL RBC 3.55 L (4.30-5.90) m/uL Hgb 10.5 L (13.0-17.5) gm/dL Hct 33.2 L (39.0-53.0) % MCV 93.5 (80.0-100.0) fL MCH 29.5 (25.0-35.0) pg MCHC 31.6 (31.0-37.0) g/dL RDW 13.9 (11.5-15.5) % Plt Count 237 (150-450) k/uL Neutrophils % 94 % Lymphocytes % 2 % Monocytes % 3 % Eosinophils % 0 % Basophils % 0 % Neutrophils # 25.8 H (1.3-7.7) k/uL Lymphocytes # 0.4 L (1.0-4.8) k/uL Monocytes # 0.8 (0-1.0) k/uL Eosinophils # 0.0 (0-0.7) k/uL Basophils # 0.1 (0-0.2) k/uL PT (9.0-12.0) sec INR (<1.2) APTT (22.0-30.0) sec Sodium 133 L (137-145) mmol/L Potassium 4.9 (3.5-5.1) mmol/L Chloride 103 (98-107) mmol/L Carbon Dioxide 22 (22-30) mmol/L Anion Gap 8 mmol/L BUN 58 H (9-20) mg/dL Creatinine 1.55 H (0.66-1.25) mg/dL Est GFR (CKD-EPI)AfAm 49 (>60 ml/min/1.73 sqM) Est GFR (CKD-EPI)NonAf 43 (>60 ml/min/1.73 sqM) Glucose 286 H (74-99) mg/dL Plasma Lactic Acid Raheem 2.8 H* (0.7-2.0) mmol/L Calcium 7.9 L (8.4-10.2) mg/dL Total Bilirubin 0.5 (0.2-1.3) mg/dL AST 35 (17-59) U/L ALT 38 (21-72) U/L Alkaline Phosphatase 116 (38-126) U/L Total Protein 5.2 L (6.3-8.2) g/dL Albumin 2.6 L (3.5-5.0) g/dL Urine Color Urine Appearance (Clear) Urine pH (5.0-8.0) Ur Specific [place] (1.001-1.035) Urine Protein (Negative) Urine Glucose (UA) (Negative) Urine Ketones (Negative) Urine Blood (Negative) Urine Nitrite (Negative) Urine Bilirubin (Negative) Urine Urobilinogen (<2.0) mg/dL Ur Leukocyte Esterase (Negative) Urine RBC (0-5) /hpf Urine WBC (0-5) /hpf Urine WBC Clumps (None) /hpf Urine Bacteria (None) /hpf Urine Mucus (None) /hpf 07/24/18 07/24/18 Range/Units 18:21 18:30 WBC (3.8-10.6) k/uL RBC (4.30-5.90) m/uL Hgb (13.0-17.5) gm/dL Hct (39.0-53.0) % MCV (80.0-100.0) fL MCH (25.0-35.0) pg MCHC (31.0-37.0) g/dL RDW (11.5-15.5) % Plt Count (150-450) k/uL Neutrophils % % Lymphocytes % % Monocytes % % Eosinophils % % Basophils % % Neutrophils # (1.3-7.7) k/uL Lymphocytes # (1.0-4.8) k/uL Monocytes # (0-1.0) k/uL Eosinophils # (0-0.7) k/uL Basophils # (0-0.2) k/uL PT 11.3 (9.0-12.0) sec INR 1.2 H (<1.2) APTT 23.3 (22.0-30.0) sec Sodium (137-145) mmol/L Potassium (3.5-5.1) mmol/L Chloride (98-107) mmol/L Carbon Dioxide (22-30) mmol/L Anion Gap mmol/L BUN (9-20) mg/dL Creatinine (0.66-1.25) mg/dL Est GFR (CKD-EPI)AfAm (>60 ml/min/1.73 sqM) Est GFR (CKD-EPI)NonAf (>60 ml/min/1.73 sqM) Glucose (74-99) mg/dL Plasma Lactic Acid Raheem (0.7-2.0) mmol/L Calcium (8.4-10.2) mg/dL Total Bilirubin (0.2-1.3) mg/dL AST (17-59) U/L ALT (21-72) U/L Alkaline Phosphatase (38-126) U/L Total Protein (6.3-8.2) g/dL Albumin (3.5-5.0) g/dL Urine Color Yellow Urine Appearance Turbid (Clear) Urine pH 5.5 (5.0-8.0) Ur Specific [place] 1.019 (1.001-1.035) Urine Protein 2+ H (Negative) Urine Glucose (UA) Negative (Negative) Urine Ketones Negative (Negative) Urine Blood Moderate H (Negative) Urine Nitrite Negative (Negative) Urine Bilirubin Negative (Negative) Urine Urobilinogen <2.0 (<2.0) mg/dL Ur Leukocyte Esterase Large H (Negative) Urine RBC 34 H (0-5) /hpf Urine WBC >182 H (0-5) /hpf Urine WBC Clumps Many H (None) /hpf Urine Bacteria Many H (None) /hpf Urine Mucus Few H (None) /hpf Disposition Clinical Impression: Sepsis secondary to UTI Disposition: ADMITTED IP TO THIS HOSP Condition: Stable Is patient prescribed a controlled substance at d/c from ED?: No Referrals: Ata Lance MD [Primary Care Provider] - 1-2 days Decision to Admit Reason: Admit from EC Decision Date: 07/24/18 Decision Time: 19:58
[2018-07-24 18:38] LABS: Basophils # (A) 0.1 k/uL (0-0.2); Basophils % (A) 0 %; Eosinophils % (A) 0 %; HCT 33.2 % (39.0-53.0); HGB 10.5 gm/dL (13.0-17.5); Lymphocytes # (A) 0.4 k/uL (1.0-4.8); Lymphocytes % (A) 2 %; MCH 29.5 pg (25.0-35.0); MCHC 31.6 g/dL (31.0-37.0); MCV 93.5 fL (80.0-100.0); Mean Platelet Volume 8.1; Monocytes # (A) 0.8 k/uL (0-1.0); Monocytes % (A) 3 %; Neutrophils # (A) 25.8 k/uL (1.3-7.7); Neutrophils % (A) 94 %; Platelet Count 237 k/uL (150-450); RBC 3.55 m/uL (4.30-5.90); RDW 13.9 % (11.5-15.5); WBC 27.3 k/uL (3.8-10.6)
[2018-07-24 18:44] LABS: Albumin 2.6 g/dL (3.5-5.0); Calcium 7.9 mg/dL (8.4-10.2); Potassium 4.9 mmol/L (3.5-5.1); Total Bilirubin 0.5 mg/dL (0.2-1.3); Total Protein 5.2 g/dL (6.3-8.2)
[2018-07-24 18:46] LABS: INR 1.2 (<1.2); Partial Thromboplastin Time 23.3 sec (22.0-30.0); Prothrombin Time 11.3 sec (9.0-12.0)
[2018-07-24] MEDS ORDERED: ACETAMINOPHEN IV (For NPO) 1,000 MG in EMPTY BAG 1 BAG IVPB ONE (19:00)
[2018-07-24 19:04] LABS: Appearance,Urine Turbid (Clear); Bacteria,Urine Many /hpf; Bilirubin,Urine Negative (Negative); Blood,Urine Moderate (Negative); Color,Urine Yellow; Glucose,Urine (UA) Negative (Negative); Ketones,Urine Negative (Negative); Leukocyte Esterase,Urine Large (Negative); Mucus,Urine Few /hpf; Nitrite,Urine Negative (Negative); PH, Urine 5.5 (5.0-8.0); Protein,Urine 2+ (Negative); RBC,Urine 34 /hpf (0-5); Specific Gravity,Urine 1.019 (1.001-1.035); Urobilinogen,Urine <2.0 mg/dL (<2.0); WBC,Urine >182 /hpf (0-5)
--- NOTE | 2018-07-24 19:29 | XR ---
EXAMINATION TYPE: XR chest 2V DATE OF EXAM: 07/24/2018 COMPARISON: 06/18/2018 HISTORY: Fever TECHNIQUE: Frontal and lateral views of the chest are obtained. FINDINGS: Heart is normal. Lungs are clear of consolidation. Thoracic aorta is atheromatous. There a re sternal wires. There are chest leads. There is mild spurring in the thoracic spine. IMPRESSION: No active cardiopulmonary disease. No change.
[2018-07-24] MEDS ORDERED: VANCOMYCIN IV PER PHARMACY 1 EACH MISC MISCELLANE PRN (19:53)
[2018-07-24] MEDS ORDERED: NALOXONE 0.4 MG/ML 1 ML VIAL IV PRN (19:54)
[2018-07-24] MEDS ORDERED: VANCOMYCIN 1,750 MG in SODIUM CHLORIDE 0.9% 500 ML 500 ML IVPB ONE (20:30)
[2018-07-24] MEDS: SODIUM CHLORIDE 0.9% 1,000 ML IV SCH (22:44)
[2018-07-25 06:42] LABS: Basophils # (A) 0.1 k/uL (0-0.2); Basophils % (A) 0 %; Eosinophils % (A) 0 %; HCT 29.7 % (39.0-53.0); HGB 9.8 gm/dL (13.0-17.5); Lymphocytes # (A) 0.7 k/uL (1.0-4.8); Lymphocytes % (A) 4 %; MCH 30.2 pg (25.0-35.0); MCHC 33.1 g/dL (31.0-37.0); MCV 91.3 fL (80.0-100.0); Mean Platelet Volume 8.3; Monocytes # (A) 0.5 k/uL (0-1.0); Monocytes % (A) 3 %; Neutrophils # (A) 17.1 k/uL (1.3-7.7); Neutrophils % (A) 92 %; Platelet Count 204 k/uL (150-450); RBC 3.25 m/uL (4.30-5.90); RDW 13.9 % (11.5-15.5); WBC 18.5 k/uL (3.8-10.6)
[2018-07-25 06:55] LABS: Albumin 2.2 g/dL (3.5-5.0); Calcium 7.8 mg/dL (8.4-10.2); Potassium 4.4 mmol/L (3.5-5.1); Total Bilirubin 0.4 mg/dL (0.2-1.3); Total Protein 4.6 g/dL (6.3-8.2)
[2018-07-25] MEDS: VANCOMYCIN 1,500 MG in SODIUM CHLORIDE 0.9% 250 ML IVPB SCH (10:03)
[2018-07-25] MEDS: SODIUM CHLORIDE 0.9% 1,000 ML IV SCH (10:03)
[2018-07-25 10:38] VITALS: BMI 24.5
[2018-07-25] MEDS ORDERED: VANCOMYCIN 1,500 MG in SODIUM CHLORIDE 0.9% 250 ML IVPB SCH (11:00)
[2018-07-25] MEDS ORDERED: NA PHOS,M-B/NA PHOS,DI-BA 133 ML ENEMA RECTAL PRN (11:06)
[2018-07-25] MEDS ORDERED: IPRATROPIUM-ALBUTEROL 3 ML NEB INHALATION PRN (11:06)
[2018-07-25] MEDS ORDERED: ACETAMINOPHEN TAB 325 MG TAB PO PRN (11:06)
[2018-07-25] MEDS ORDERED: BISACODYL 10 MG SUPP RECTAL PRN (11:06)
[2018-07-25] MEDS ORDERED: MAGNESIUM HYDROXIDE 2,400 MG/10 ML CUP PO PRN (11:06)
[2018-07-25] MEDS ORDERED: ONDANSETRON 4 MG/2 ML VIAL IVP PRN (11:31)
[2018-07-25] MEDS ORDERED: NON-FORMULARY DRUG (Jevity 1.5 Cal Liquid 1 CAN) PEG/G-TUBE SCH (14:00)
--- NOTE | 2018-07-25 15:58 | HP ---
HISTORY AND PHYSICAL CHIEF COMPLAINT: Urinary tract infection and possible septicemia. HISTORY OF PRESENT ILLNESS: This is another admission for this 77-year-old white male who had a right CVA with left hemiparesis and was in rehab at [facility]. He suddenly developed a fever and was brought to the emergency room, where he was found to have a urinary tract infection. His lactic acid was slightly elevated. He has an indwelling Cortez catheter. He has had no vomiting. REVIEW OF SYSTEMS: Cannot be reliably obtained. Past medical history, family history, and personal and social histories are otherwise unremarkable or unchanged. PHYSICAL EXAMINATION: is 101 and pulse is 95. Respirations are 36 and blood pressure is 123/74. Head, ears, eyes, nose, mouth and throat are normal. Skin is hot and dry. Chest is clear. Cardiac exam is unremarkable. The abdomen is soft and nontender. Extremities are normal. Neurologically he is intact. Cortez catheter is in place. IMPRESSION: 1. Urinary tract infection. 2. Septicemia. 3. Recent cerebrovascular accident. 4. History of coronary artery disease. PLAN: 1. Bed rest. 2. IV fluids. 3. IV antibiotics. MMODL / IJN: [id number] /
--- NOTE | 2018-07-25 15:58 | PN ---
PROGRESS NOTE DATE OF SERVICE: 07/25/2018 CHIEF COMPLAINT: Urinary tract infection. HISTORY OF PRESENT ILLNESS: This gentleman is doing much better. Temperature is down. PHYSICAL EXAMINATION: Chest is clear. The cardiac exam is normal. Abdomen is soft, nontender. IMPRESSION: 1. Urinary tract infection. 2. Cerebrovascular accident. PLAN: 1. Continue with IV fluids and antibiotics for at least another day or two. 2. Increase Cardura from 1 to 2 mg at bedtime in hopes that his Cortez catheter can be removed sometime in the future and he would be able to void fairly well. MMODL / IJN: [id number] /
[2018-07-25] MEDS: ASPIRIN 81 MG PEG/G-TUBE SCH (16:59)
[2018-07-25] MEDS: INSULIN ASPART 100 UNIT/ML 1 ML 10 ML VIAL SQ SCH (18:08)
[2018-07-25 18:11] LABS: Glucose,Whole Blood 165 mg/dL (75-99)
[2018-07-25] MEDS: NON-FORMULARY DRUG (Amino Acids/Protein Hydrolys [Pro-Stat Supplement] 30 ML) PEG/G-TUBE SCH (18:43)
[2018-07-25] MEDS ORDERED: DILTIAZEM DRIP BOLUS FROM BAG 1 MG SOLN IV ONE (19:44)
[2018-07-25] MEDS ORDERED: JEVITY CAL PEG/G-TUBE SCH (20:00)
[2018-07-25] MEDS ORDERED: INSULIN DETEMIR 100 UNIT/ML 10 ML VIAL SQ SCH (21:00)
[2018-07-25 21:02] LABS: Magnesium 2.2 mg/dL (1.6-2.3); Potassium 4.7 mmol/L (3.5-5.1)
[2018-07-25] MEDS: BISMUTH SUBSALICYLATE 4,192 MG/240 ML BOTTLE PEG/G-TUBE SCH (21:15)
[2018-07-25] MEDS: SULFAMETHOX-TMP 200-40MG/5ML 20 ML CUP PEG/G-TUBE SCH (21:15)
[2018-07-25 23:39] LABS: Glucose,Whole Blood 152 mg/dL (75-99)
[2018-07-26] MEDS: INSULIN ASPART 100 UNIT/ML 1 ML 10 ML VIAL SQ SCH ×5 (00:32→22:34)
[2018-07-26] MEDS: SODIUM CHLORIDE 0.9% 1,000 ML IV SCH ×3 (00:32→22:34)
[2018-07-26] MEDS ORDERED: NON-FORMULARY DRUG (Jevity 1.5 Cal Liquid 1 CAN) PEG/G-TUBE SCH (02:00)
[2018-07-26 06:15] LABS: Glucose,Whole Blood 42 mg/dL (75-99)
[2018-07-26] MEDS ORDERED: DEXTROSE 50%-WATER 50 ML SYRINGE IVP STA ×3 (06:20→18:03)
[2018-07-26 06:37] LABS: Glucose,Whole Blood 114 mg/dL (75-99)
[2018-07-26] MEDS ORDERED: METOPROLOL TARTRATE 25 MG TAB PEG/G-TUBE SCH (08:00)
[2018-07-26] MEDS: DILTIAZEM 50 MG in SODIUM CHLORIDE 0.9% 40 ML IV SCH ×2 (08:33→08:47)
[2018-07-26] MEDS: NON-FORMULARY DRUG (Amino Acids/Protein Hydrolys [Pro-Stat Supplement] 30 ML) PEG/G-TUBE SCH ×2 (08:35→15:27)
[2018-07-26] MEDS: DOXAZOSIN 2 MG TAB PO SCH (08:41)
[2018-07-26] MEDS: PANTOPRAZOLE SODIUM 40 MG GRANULE PKT PEG/G-TUBE SCH (08:41)
[2018-07-26] MEDS: VANCOMYCIN 1,500 MG in SODIUM CHLORIDE 0.9% 250 ML IVPB SCH (08:41)
[2018-07-26] MEDS: BISMUTH SUBSALICYLATE 4,192 MG/240 ML BOTTLE PEG/G-TUBE SCH ×2 (08:43→21:42)
[2018-07-26] MEDS: SULFAMETHOX-TMP 200-40MG/5ML 20 ML CUP PEG/G-TUBE SCH ×2 (08:43→21:42)
--- NOTE | 2018-07-26 09:12 | P.CRDCN ---
History of Present Illness Consult date: 07/26/18 Requesting physician: Ata Lance Consult reason: atrial fibrillation Chief complaint: Fever, weakness History of present illness: This is a 77-year-old gentleman with known history of coronary artery disease and prior bypass surgery in 2003 at which time he underwent a ANDERSON to the LAD, vein graft to the diagonal, obtuse marginal, and RCA. He used to follow with Dr. Carrillo in the office, he now sees Dr. Guzman. Patient also has history of atrial fibrillation, paroxysmal, recent CVA, hypertension, hyperlipidemia, GERD. He is currently at an extended care facility which is where he was discharged to after his recent CVA, he was noted there to have significantly elevated temperature, and was found to have a urinary tract infection. For this reason he was admitted to the hospital. A cardiology consultation was requested secondary to atrial fibrillation. His chest x-ray on admission did not reveal any active cardiopulmonary disease. EKG on admission here showed normal sinus rhythm with no acute changes. Current rhythm shows atrial fibrillation with moderately rapid ventricular response. I pressure on arrival here 105/60, heart rate in the 80s, temperature 99.1, 96% on nonrebreather. Blood pressure this morning 124/50 with a heart rate of 110, 96% on 2 L of oxygen. Blood cultures so far show no growth, urine culture shows gram-negative bacilli. White blood cell count on admission 27.3, 18.5 this morning, hemoglobin 9.8, platelet count is 204. Sodium 138, potassium 4.7 , BUN 56, creatinine 1.5. Lactic acid level II.5 on admission. C. diff was negative, urine showed 2+ protein, large amount of leukocyte Estrace many bacteria. At the time of my examination, patient is somewhat confused, states that he feels tired, weak and achy all over. Heart rate this morning is in the 90s he is going to receive his beta thalia and the IV Cardizem will be discontinued. Patient did have an echocardiogram with Doppler study performed last month which revealed an ejection fraction of 55-60%, we will not repeat an echo on this patient. We will check a TSH level. Past Medical History Past Medical History: Atrial Fibrillation, Coronary Artery Disease (CAD), CVA/ TIA, Diabetes Mellitus, GERD/Reflux, Hyperlipidemia, Hypertension, Pneumonia Additional Past Medical History / Comment(s): TIA 2014, hypoglycemia, daughter states they think stroke was from afib, prediabetic managed with diet. History of Any Multi-Drug Resistant Organisms: None Reported Past Surgical History: Coronary Bypass/CABG, Tonsillectomy Additional Past Surgical History / Comment(s): QUAD CABG 2002. COLONOSCOPY in 2016-wnl per pt. egd see report Past Anesthesia/Blood Transfusion Reactions: No Reported Reaction Past Psychological History: No Psychological Hx Reported Additional Psychological History / Comment(s): pt resides at [facility] at this time, daughter Anayeli provides pt's history r/t pt confusion - daughter Anayeli is POA and would like to take her dad back to [place] where she lives at discharge. Smoking Status: Never smoker Past Alcohol Use History: None Reported Past Drug Use History: None Reported - Past Family History Sister(s) Family Medical History: Cancer Additional Family Medical History / Comment(s): LUNG, BONE CA Medications and Allergies Home Medications Medication Instructions Recorded Confirmed Type Aspirin [Adult Low Dose Aspirin EC] 81 mg PEG/G-TUBE DAILY@1700 06/30/17 History Omeprazole [PriLOSEC] 20 mg PEG/G-TUBE BID@0800,1700 06/12/18 07/24/18 History Ipratropium-Albuterol Nebulize 3 ml INHALATION RT-QID PRN #120 06/26/18 Rx [Duoneb 0.5 mg-3 mg/3 ml Soln] ampul.neb Acetaminophen Tab [Tylenol Tab] 650 mg PO Q4H PRN 07/24/18 07/24/18 History Amino Acids/Protein Hydrolys 30 ml PEG/G-TUBE BID@0800,1700 07/24/18 07/24/18 History [Pro-Stat Supplement] Bisacodyl [Dulcolax] 10 mg RECTAL DAILY PRN 07/24/18 07/24/18 History Bismuth Subsalicylate 524 mg PEG/G-TUBE BID@0800,209907/24/18 07/24/18 History [Pepto-Bismol] Doxazosin [Cardura] 1 mg PEG/G-TUBE DAILY@0800 07/24/18 07/24/18 History Insulin Detemir [Levemir] 40 unit SQ HS@209907/24/18 07/24/18 History Jevity 1.5 Sukhdev Liquid 1 can PEG/G-TUBE DIRECTED@19907/24/18 07/24/18 History Jevity 1.5 Sukhdev Liquid 1 can PEG/G-TUBE 07/24/18 07/24/18 History DIRECTED@ Jevity 1.5 Sukhdev Liquid 2 can PEG/G-TUBE DIRECTED@199907/24/18 07/24/18 History Magnesium Hydroxide [Milk of 7,200 mg PO DAILY PRN 07/24/18 07/24/18 History Magnesia Concentrate] Melatonin 1 mg PEG/G-TUBE HS@209907/24/18 07/24/18 History Metoprolol Tartrate [Lopressor] 25 mg PEG/G-TUBE DAILY@0800 07/24/18 07/24/18 History Na Phos,M-B/Na Phos,Di-Ba [Fleet 133 ml RECTAL ONCE PRN 07/24/18 07/24/18 History Adult] Sulfamethox-Tmp 800-160Mg [Bactrim 1 tab PEG/G-TUBE BID@0800,209907/24/1807/24 History DS 800-160 mg] cloNIDine 0.2 MG/24HR PATCH 1 patch TRANSDERM TU@0800 07/24/18 07/24/18 History [Catapres-TTS] Allergies Allergy/AdvReac Type Severity Reaction Status Date / Time Penicillins Allergy Unknown Verified 07/24/18 18:17 Physical Exam Vitals: Vital Signs Temp Pulse Resp BP Pulse Ox 07/26/18 04:00 117 H 18 124/55 96 07/26/18 00:00 98.9 F 104 H 16 103/56 95 07/25/18 20:28 113 H 07/25/18 19:39 98.7 F 121 H 18 142/70 94 L 07/25/18 16:30 97.0 F L 82 16 117/61 96 07/25/18 16:08 96 07/25/18 11:48 97.8 F 98 18 115/61 95 Intake and Output 07/25/18 07/26/18 07/26/18 22:59 06:59 14:59 Intake Total 220 60 Output Total 400 375 Balance -180 -315 Intake: Oral 100 60 Other 120 Output: Urine 400 375 Other: Voiding Method Indwelling Catheter Indwelling Catheter Weight 76 kg PHYSICAL EXAMINATION: GENERAL: 77-year-old gentleman in no acute distress at the time of my examination HEENT: Head is atraumatic, normocephalic. Pupils equal, round. Sclera anicteric. Conjunctiva are clear. Mucous membranes of the mouth are moist. Neck is supple. There is no elevated jugular venous pressure. No carotid bruit is heard. HEART EXAMINATION: Heart S1 and S2 irregularly irregular short systolic murmur is heard CHEST EXAMINATION: Lungs are clear with fine crackles to bilateral bases ABDOMEN: Soft, nontender. Bowel sounds are heard. No organomegaly noted. EXTREMITIES: 2+ peripheral pulses with no evidence of peripheral edema and no calf tenderness noted. NEUROLOGIC patient is awake, alert and oriented 2 . . Results 07/25/18 06:16 07/25/18 19:56 Comprehensive Metabolic Panel 07/25/18 Range/Units 19:56 Sodium 138 (137-145) mmol/L Potassium 4.7 (3.5-5.1) mmol/L Chloride 108 H (98-107) mmol/L Carbon Dioxide 23 (22-30) mmol/L BUN 56 H (9-20) mg/dL Creatinine 1.56 H (0.66-1.25) mg/dL Glucose 150 H (74-99) mg/dL Calcium 8.0 L (8.4-10.2) mg/dL Current Medications Generic Name Dose Route Start Last Admin Trade Name Freq PRN Reason Stop Dose Admin Acetaminophen 650 mg 07/25/18 11:06 Tylenol Tab PO Q4H PRN Fever Albuterol/Ipratropium 3 ml 07/25/18 11:06 Duoneb 0.5 Mg-3 Mg/3 Ml Soln INHALATION RT-QID PRN Shortness Of Breath Or Wheezing Aspirin 81 mg 07/25/18 17:00 07/25/18 16:59 Aspirin PEG/G-TUBE 81 mg DAILY@1700 HANS Administration Bisacodyl 10 mg 07/25/18 11:06 Dulcolax RECTAL DAILY PRN Constipation Bismuth Subsalicylate 524 mg 07/25/18 21:00 07/26/18 08:43 Bismatrol PEG/G-TUBE 524 mg BID@0800,2100 HANS Administration Clonidine HCl 1 patch 08/01/18 08:00 Catapres-Tts 0.2mg Patch TRANSDERM TU@0800 [facility] Doxazosin Mesylate 2 mg 07/26/18 08:00 07/26/18 08:41 Cardura PO 2 mg DAILY@0800 [facility] Administration Sodium Chloride 1,000 mls @ 75 mls/hr 07/24/18 19:45 07/26/18 00:32 Saline 0.9% IV 75 mls/hr .[id number] HANS Administration Ceftriaxone Sodium 1,000 mg/ 50 mls @ 100 mls/hr 07/25/18 19:00 07/25/18 19: 48 Sodium Chloride IVPB 100 mls/hr Q24H HANS Administration Vancomycin HCl 1,500 mg/ 250 mls @ 125 mls/hr 07/25/18 10:00 07/26/18 08:41 Sodium Chloride IVPB 125 mls/hr Q24HR HANS Administration Diltiazem HCl 50 mg/ Sodium 50 mls @ 5 mls/hr 07/25/18 20:00 07/26/18 08:47 Chloride IV Not Given .Q10H HANS 5 MG/HR Insulin Aspart 0 unit 07/25/18 18:00 07/26/18 06:21 Novolog SQ Not Given Q6HR [facility] Protocol Insulin Detemir 20 unit 07/26/18 21:00 Levemir SQ HS@2100 [facility] Magnesium Hydroxide 2,400 mg 07/25/18 11:06 07/25/18 16:59 Milk Of Magnesia PO 2,400 mg DAILY PRN Administration Constipation Metoprolol Tartrate 25 mg 07/26/18 08:00 07/26/18 08:43 Lopressor PEG/G-TUBE 25 mg DAILY@0800 [facility] Administration Miscellaneous Information 0 each 07/27/18 08:00 Vancomycin Trough Due MISCELLANE 07/27/18 08:01 DIRECTED ONE Naloxone HCl 0.2 mg 07/24/18 19:54 Narcan IV Q2M PRN Opioid Reversal Non-Formulary Medication 30 ml 07/25/18 17:00 07/26/18 08:35 Amino Acids/Protein Hydrolys [Pro-Stat Supplement] PEG/G-TUBE Not Given BID@0800,1700 [facility] Ondansetron HCl 4 mg 07/25/18 11:31 07/25/18 11:42 Zofran IVP 4 mg Q6HR PRN Administration Nausea And Vomiting Pantoprazole Sodium 40 mg 07/26/18 08:00 07/26/18 08:41 Protonix PEG/G-TUBE 40 mg DAILY@0800 HANS Administration Sodium Biphosphate/Sodium Phosphate 133 ml 07/25/18 11:06 Fleet Adult RECTAL ONCE PRN Constipation Trimethoprim/Sulfamethoxazole 20 ml 07/25/18 21:00 07/26/18 08:43 Bactrim Oral Susp PEG/G-TUBE 20 ml BID@0800,2100 HANS Administration Intake and Output 07/25/18 07/26/18 07/26/18 22:59 06:59 14:59 Intake Total 220 60 Output Total 400 375 Balance -180 -315 Intake: Oral 100 60 Other 120 Output: Urine 400 375 Other: Voiding Method Indwelling Catheter Indwelling Catheter Weight 76 kg 07/25/18 06:16 07/25/18 19:56 EKG Interpretations (text) Initial EKG shows normal sinus rhythm with no acute changes. Assessment and Plan Plan: Assessment and plan #1 sepsis with evidence of UTI. #2 recent CVA #3 known history of coronary artery disease with prior bypass surgery #4 hypertension #5 hyperlipidemia #6 paroxysmal atrial fibrillation #7 GERD #8 diabetes Plan We will increase the metoprolol to 25 mg twice a day that the patient is receiving through his PEG tube, discontinue IV Cardizem. Patient is not currently on anticoagulation because of this risk for falls. We will continue an aspirin daily. Check TSH level. Further recommendations to follow. DNP note has been reviewed, I agree with a documented findings and plan of care. Patient was seen and examined.
[2018-07-26 11:37] LABS: Glucose,Whole Blood 43 mg/dL (75-99)
[2018-07-26 11:37] LABS: Glucose,Whole Blood 34 mg/dL (75-99)
[2018-07-26 11:55] LABS: Glucose,Whole Blood 126 mg/dL (75-99)
--- NOTE | 2018-07-26 13:08 | CDI ---
Last Revision, September 2017 Documentation Clarification Form Date: 07/26/2018 1:00:44 PM From: Karley Jenkins RN, CCDS Admit Date: 07/24/2018 7:58:00 PM Patient Name: Ronny Harper Visit Number: [id number] ATTENTION: The Clinical Documentation Specialists (CDI) and [facility] Coding Staff appreciate your assistance in clarifying documentation. Please respond to the clarification below the line at the bottom and electronically sign. The CDI & [facility] Coding staff will review the response and follow-up if needed. Please note: Queries are made part of the Legal Health Record. If you have any questions, please contact the author of this message via ITS. Ata Youngblood MD An abnormal Hgb & Hct has been noted, please provide clinical significance specificity to accurately reflect your patients severity of condition and clarification is needed. History/Risk Factors: recent CVA, fever, UTI, Sepsis Clinical indicators: Hemoglobin: 10.5/9.8 Hematocrit: 33.2/29.7 Treatment: ASA 81 mg Via peg QD 1L IVF Bolus In order to capture the severity of condition, please clarify the type of anemia and etiology if known: Acute on chronic blood loss anemia Chronic blood loss anemia Iron deficiency anemia Hemolytic anemia Drug induced anemia Anemia due to malignancy Nutritional anemia Anemia of chronic kidney disease Unable to determine Other, please specify Please continue to document in your progress notes and discharge summary in order to capture severity of illness and risk of mortality. Include clinical findings that support your diagnosis. MTDD
--- NOTE | 2018-07-26 13:23 | CDI ---
Last Revision, September 2017 Documentation Clarification Form Date: 07/26/2018 1:11:25 PM From: Karley Jenkins RN, CCDS Admit Date: 07/24/2018 7:58:00 PM Patient Name: Ronny Harper Visit Number: [id number] ATTENTION: The Clinical Documentation Specialists (CDI) and [facility] Coding Staff appreciate your assistance in clarifying documentation. Please respond to the clarification below the line at the bottom and electronically sign. The CDI & [facility] Coding staff will review the response and follow-up if needed. Please note: Queries are made part of the Legal Health Record. If you have any questions, please contact the author of this message via ITS. Ata Youngblood MD Abnormal BUN and Creatinine have been noted. Please document clinical significance. History/Risk Factors: Sepsis, UTI, CVA w/ Left Hemiparesis Clinical Indicators: Patients current BUN: 58/56 CR: 1.55 GFR: 1.56 Baseline BUN/Cr/GFR: 51/1.15/61 Treatment: IVF: 1l 0.9%NS bolus followed by 75 cc/hr In order to capture the severity of condition, please clarify if the condition signifies: Acute renal failure, Please specify etiology (if known): Cortical Necrosis Medullary Necrosis Tubular Necrosis Acute kidney injury Acute on chronic renal failure CKD Stage 1 GFR >90 CKD Stage 2 GFR 60-89 CKD Stage 3 GFR 30-59 CKD Stage 4 GFR 15-29 CKD Stage 5 GFR <15 Chronic renal failure/Chronic Kidney disease (CKD) please stage if known CKD Stage 1 GFR >90 CKD Stage 2 GFR 60-89 CKD Stage 3 GFR 30-59 CKD Stage 4 GFR 15-29 CKD Stage 5 GFR <15 ESRD Other, please specify Unable to determine Please continue to document in your progress notes and discharge summary in order to capture severity of illness and risk of mortality. Include clinical findings that support your diagnosis. MTDD
[2018-07-26] MEDS: ASPIRIN 81 MG PEG/G-TUBE SCH (17:04)
[2018-07-26 17:53] LABS: Glucose,Whole Blood 47 mg/dL (75-99)
[2018-07-26 18:25] LABS: Glucose,Whole Blood 120 mg/dL (75-99)
[2018-07-26] MEDS ORDERED: INSULIN DETEMIR 100 UNIT/ML 10 ML VIAL SQ SCH (21:00)
[2018-07-26 21:06] LABS: Glucose,Whole Blood 98 mg/dL (75-99)
[2018-07-27 05:52] LABS: Glucose,Whole Blood 183 mg/dL (75-99)
[2018-07-27] MEDS: INSULIN ASPART 100 UNIT/ML 1 ML 10 ML VIAL SQ SCH ×2 (06:57→12:56)
[2018-07-27] MEDS ORDERED: METOPROLOL TARTRATE 50 MG TAB PEG/G-TUBE SCH (08:00)
[2018-07-27] MEDS ORDERED: VANCOMYCIN TROUGH DUE 1 EACH MISC MISCELLANE ONE (08:00)
[2018-07-27] MEDS: VANCOMYCIN 1,500 MG in SODIUM CHLORIDE 0.9% 250 ML IVPB SCH (09:41)
[2018-07-27] MEDS: NON-FORMULARY DRUG (Amino Acids/Protein Hydrolys [Pro-Stat Supplement] 30 ML) PEG/G-TUBE SCH (09:42)
[2018-07-27 09:51] LABS: Basophils % (A) 0 %; Eosinophils # (A) 0.2 k/uL (0-0.7); Eosinophils % (A) 3 %; HCT 27.3 % (39.0-53.0); HGB 8.7 gm/dL (13.0-17.5); Hypochromasia Slight; Lymphocytes # (A) 0.8 k/uL (1.0-4.8); Lymphocytes % (A) 12 %; MCH 29.9 pg (25.0-35.0); MCV 93.5 fL (80.0-100.0); Mean Platelet Volume 8.6; Monocytes # (A) 0.3 k/uL (0-1.0); Monocytes % (A) 5 %; Neutrophils # (A) 5.6 k/uL (1.3-7.7); Neutrophils % (A) 79 %; Platelet Count 194 k/uL (150-450); RBC 2.92 m/uL (4.30-5.90); RDW 13.9 % (11.5-15.5); WBC 7.1 k/uL (3.8-10.6)
[2018-07-27 10:35] LABS: Calcium 7.8 mg/dL (8.4-10.2); Potassium 4.6 mmol/L (3.5-5.1)
[2018-07-27] MEDS: SULFAMETHOX-TMP 200-40MG/5ML 20 ML CUP PEG/G-TUBE SCH (10:40)
[2018-07-27] MEDS: PANTOPRAZOLE SODIUM 40 MG GRANULE PKT PEG/G-TUBE SCH (10:41)
[2018-07-27] MEDS: BISMUTH SUBSALICYLATE 4,192 MG/240 ML BOTTLE PEG/G-TUBE SCH (10:42)
[2018-07-27] MEDS: DOXAZOSIN 2 MG TAB PO SCH (10:42)
[2018-07-27 10:55] VITALS: RESP 16; TEMP 97.9
--- NOTE | 2018-07-27 11:00 | DS ---
DISCHARGE SUMMARY CHIEF COMPLAINT: Urinary tract infection and septicemia. HISTORY OF PRESENT ILLNESS AND PHYSICAL EXAM: Details of this man's history and physical can be found in the initial workup. LABORATORY STUDIES: While he was in a hospital he had laboratory studies, details which can be found in the laboratory section of his chart. COURSE IN HOSPITAL: After admission he was placed on bedrest, started on intravenous fluids and IV antibiotics. Temperature slowly came down and did well. Klebsiella grew out of his urine. He was sensitive to Levaquin and he was discharged home on 250 mg once a day. He will be seen in the office in followup as possible and to be set up for home care. FINAL DIAGNOSES: 1. Urinary tract infection. 2. Septicemia. 3. Recent cerebrovascular accident with hemiparesis. 4. History of coronary artery disease. OPERATIONS: None. CONSULTATION: He is improved. MICHELLE / LUCI: [id number] /
[2018-07-27 11:02] VITALS: BP 163/71
--- NOTE | 2018-07-27 11:34 | P.PN ---
Subjective Progress Note Date: 07/27/18 This is a 77-year-old gentleman with known history of coronary artery disease and prior bypass surgery in 2003 at which time he underwent a ANDERSON to the LAD, vein graft to the diagonal, obtuse marginal, and RCA. He used to follow with Dr. Carrillo in the office, he now sees Dr. Guzman. Patient also has history of atrial fibrillation, paroxysmal, recent CVA, hypertension, hyperlipidemia, GERD. He is currently at an extended care facility which is where he was discharged to after his recent CVA, he was noted there to have significantly elevated temperature, and was found to have a urinary tract infection. For this reason he was admitted to the hospital. A cardiology consultation was requested secondary to atrial fibrillation. His chest x-ray on admission did not reveal any active cardiopulmonary disease. EKG on admission here showed normal sinus rhythm with no acute changes. Current rhythm shows atrial fibrillation with moderately rapid ventricular response. I pressure on arrival here 105/60, heart rate in the 80s, temperature 99.1, 96% on nonrebreather. Blood pressure this morning 124/50 with a heart rate of 110, 96% on 2 L of oxygen. Blood cultures so far show no growth, urine culture shows gram-negative bacilli. White blood cell count on admission 27.3, 18.5 this morning, hemoglobin 9.8, platelet count is 204. Sodium 138, potassium 4.7 , BUN 56, creatinine 1.5. Lactic acid level II.5 on admission. C. diff was negative, urine showed 2+ protein, large amount of leukocyte Estrace many bacteria. At the time of my examination, patient is somewhat confused, states that he feels tired, weak and achy all over. Heart rate this morning is in the 90s he is going to receive his beta thalia and the IV Cardizem will be discontinued. Patient did have an echocardiogram with Doppler study performed last month which revealed an ejection fraction of 55-60%, we will not repeat an echo on this patient. We will check a TSH level. 07/27/2018 Patient was seen and examined this morning, overall appears to be somewhat more alert today. White blood cell count 7.1, hemoglobin 8.7, platelet count 194. Sodium 141, potassium 4.6, BUN 45, creatinine 1.4. Blood pressure this morning 160/70 with a heart rate in the 70s, 94% on room air. Objective - Vital Signs Vital signs: Vital Signs Temp 97.9 F 07/27/18 11:01 Pulse 70 07/27/18 11:04 Resp 16 07/27/18 11:04 BP 163/71 07/27/18 11:01 Pulse Ox 94 L 07/27/18 11:01 Intake & Output 07/26/18 07/27/18 07/27/18 18:59 06:59 18:59 Intake Total 60 60 240 Output Total 150 Balance 60 -90 240 Weight 76 kg Intake: Tube Feeding 240 Other 60 60 Output: Urine 150 Other: Voiding Method Indwelling Catheter Indwelling Catheter Indwelling Catheter # Voids 0 - Exam PHYSICAL EXAMINATION: GENERAL: 77-year-old gentleman in no acute distress at the time of my examination HEENT: Head is atraumatic, normocephalic. Pupils equal, round. Sclera anicteric. Conjunctiva are clear. Mucous membranes of the mouth are moist. Neck is supple. There is no elevated jugular venous pressure. No carotid bruit is heard. HEART EXAMINATION: Heart S1 and S2 irregularly irregular short systolic murmur is heard CHEST EXAMINATION: Lungs are clear with fine crackles to bilateral bases ABDOMEN: Soft, nontender. Bowel sounds are heard. No organomegaly noted. EXTREMITIES: 2+ peripheral pulses with no evidence of peripheral edema and no calf tenderness noted. NEUROLOGIC patient is awake, alert and oriented 2 . . - Labs CBC & Chem 7: 07/27/18 08:11 07/27/18 08:11 Labs: Abnormal Lab Results - Last 24 Hours (Table) 07/26/18 07/26/18 07/26/18 Range/Units 11:32 11:34 11:52 RBC (4.30-5.90) m/uL Hgb (13.0-17.5) gm/dL Hct (39.0-53.0) % Lymphocytes # (1.0-4.8) k/uL Chloride (98-107) mmol/L BUN (9-20) mg/dL Creatinine (0.66-1.25) mg/dL Glucose (74-99) mg/dL POC Glucose (mg/dL) 34 L 43 L 126 H (75-99) mg/dL Calcium (8.4-10.2) mg/dL 07/26/18 07/26/1807/27/18 Range/Units 17:51 18:23 05:47 RBC (4.30-5.90) m/uL Hgb (13.0-17.5) gm/dL Hct (39.0-53.0) % Lymphocytes # (1.0-4.8) k/uL Chloride (98-107) mmol/L BUN (9-20) mg/dL Creatinine (0.66-1.25) mg/dL Glucose (74-99) mg/dL POC Glucose (mg/dL) 47 L 120 H 183 H (75-99) mg/dL Calcium (8.4-10.2) mg/dL 07/27/18 07/27/18 Range/Units 08:11 08:11 RBC 2.92 L (4.30-5.90) m/uL Hgb 8.7 L (13.0-17.5) gm/dL Hct 27.3 L (39.0-53.0) % Lymphocytes # 0.8 L (1.0-4.8) k/uL Chloride 113 H (98-107) mmol/L BUN 45 H (9-20) mg/dL Creatinine 1.40 H (0.66-1.25) mg/dL Glucose 176 H (74-99) mg/dL POC Glucose (mg/dL) (75-99) mg/dL Calcium 7.8 L (8.4-10.2) mg/dL Microbiology - Last 24 Hours (Table) 07/24/18 19:22 Blood Culture - Preliminary Blood No Growth after 48 hours 07/24/18 18:30 Urine Culture - Final Urine,Catheterized Pseudomonas aeruginosa 07/24/18 18:21 Blood Culture - Preliminary Blood No Growth after 48 hours Assessment and Plan Plan: Assessment and plan #1 sepsis with evidence of UTI. #2 recent CVA #3 known history of coronary artery disease with prior bypass surgery #4 hypertension #5 hyperlipidemia #6 paroxysmal atrial fibrillation #7 GERD #8 diabetes Plan From cardiology's perspective, patient may be able to be discharged from our perspective. We will continue current medications. DNP note has been reviewed, I agree with a documented findings and plan of care. Patient was seen and examined.
--- NOTE | 2018-07-27 12:23 | CDI ---
Last Revision, September 2017 Documentation Clarification Form 2nd Request Date: 07/26/2018 1:00:00 PM From: Karley Jenkins RN, CCDS Admit Date: 07/24/2018 7:58:00 PM Patient Name: Ronny Harper Visit Number: [id number] ATTENTION: The Clinical Documentation Specialists (CDI) and [facility] Coding Staff appreciate your assistance in clarifying documentation. Please respond to the clarification below the line at the bottom and electronically sign. The CDI & [facility] Coding staff will review the response and follow-up if needed. Please note: Queries are made part of the Legal Health Record. If you have any questions, please contact the author of this message via ITS. Ata Vasquez MD An abnormal Hgb & Hct has been noted, please provide clinical significance specificity to accurately reflect your patients severity of condition and clarification is needed. History/Risk Factors: recent CVA, fever, UTI, Sepsis Clinical indicators: Hemoglobin: 10.5/9.8 Hematocrit: 33.2/29.7 Treatment: ASA 81 mg via peg QD 1L IVF Bolus In order to capture the severity of condition, please clarify the type of anemia and etiology if known: Acute on chronic blood loss anemia Chronic blood loss anemia Iron deficiency anemia Drug induced anemia Nutritional anemia Anemia of chronic kidney disease Anemia of chronic disease Unable to determine Other, please specify Please continue to document in your progress notes and discharge summary in order to capture severity of illness and risk of mortality. Include clinical findings that support your diagnosis. MTDD
[2018-07-27 12:33] LABS: Glucose,Whole Blood 219 mg/dL (75-99)
--- NOTE | 2018-07-27 14:44 | CDI ---
Last Revision, September 2017 Documentation Clarification Form Date: 07/26/2018 1:00:00 PM From: Karley Jenkins RN, CCDS Admit Date: 07/24/2018 7:58:00 PM Patient Name: Ronny Harper Visit Number: [id number] ATTENTION: The Clinical Documentation Specialists (CDI) and [facility] Coding Staff appreciate your assistance in clarifying documentation. Please respond to the clarification below the line at the bottom and electronically sign. The CDI & [facility] Coding staff will review the response and follow-up if needed. Please note: Queries are made part of the Legal Health Record. If you have any questions, please contact the author of this message via ITS. Ata Vasquez MD An abnormal Hgb & Hct has been noted, please provide clinical significance specificity to accurately reflect your patients severity of condition and clarification is needed. History/Risk Factors: recent CVA, fever, UTI, Sepsis Clinical indicators: Hemoglobin: 10.5/9.8 Hematocrit: 33.2/29.7 Treatment: ASA 81 mg Via peg QD 1L IVF Bolus In order to capture the severity of condition, please clarify the type of anemia and etiology if known: Acute on chronic blood loss anemia Chronic blood loss anemia Iron deficiency anemia Drug induced anemia Nutritional anemia Anemia of chronic kidney disease Anemia of chronic disease Unable to determine Other, please specify Please continue to document in your progress notes and discharge summary in order to capture severity of illness and risk of mortality. Include clinical findings that support your diagnosis. MTDD
--- NOTE | 2018-07-27 14:46 | CDI ---
Last Revision, September 2017 Documentation Clarification Form Date: 07/26/2018 1:11:00 PM From: Karley Jenkins RN, CCDS Admit Date: 07/24/2018 7:58:00 PM Patient Name: Ronny Harper Visit Number: [id number] ATTENTION: The Clinical Documentation Specialists (CDI) and [facility] Coding Staff appreciate your assistance in clarifying documentation. Please respond to the clarification below the line at the bottom and electronically sign. The CDI & [facility] Coding staff will review the response and follow-up if needed. Please note: Queries are made part of the Legal Health Record. If you have any questions, please contact the author of this message via ITS. Ata Vasquez MD Abnormal BUN and Creatinine have been noted. Please document clinical significance. History/Risk Factors: Sepsis, UTI, CVA w/ Left Hemiparesisis Patients current BUN: 58/56 CR: 1.55 GFR: 1.56 Clinical Indicators: Baseline BUN/Cr/GFR: 51/1.15/ Treatment: IVF: 1l 0.9%NS bolus followed by 75 cc/hr In order to capture the severity of condition, please clarify if the condition signifies: Acute renal failure, Please specify etiology (if known): Cortical Necrosis Medullary Necrosis Tubular Necrosis Acute kidney injury Acute on chronic renal failure CKD Stage 1 GFR >90 CKD Stage 2 GFR 60-89 CKD Stage 3 GFR 30-59 CKD Stage 4 GFR 15-29 CKD Stage 5 GFR <15 Chronic renal failure/Chronic Kidney disease (CKD) please stage if known CKD Stage 1 GFR >90 CKD Stage 2 GFR 60-89 CKD Stage 3 GFR 30-59 CKD Stage 4 GFR 15-29 CKD Stage 5 GFR <15 ESRD Other, please specify Unable to determine Please continue to document in your progress notes and discharge summary in order to capture severity of illness and risk of mortality. Include clinical findings that support your diagnosis. MTDD
[2018-07-27 15:40] VITALS: PULSE 72
[2018-07-27] MEDS: SODIUM CHLORIDE 0.9% 1,000 ML IV SCH (15:40)
[2018-07-27 16:14] LABS: Glucose,Whole Blood 124 mg/dL (75-99)
[2018-07-28] MEDS ORDERED: LEVOFLOXACIN 250 MG TAB PO SCH (09:00)
--- NOTE | 2018-07-28 16:07 | PN ---
PROGRESS NOTE CHIEF COMPLAINT: Urinary tract infection. HISTORY OF PRESENT ILLNESS: This gentleman's gone into atrial fibrillation with a rate of around 110 and he seems asymptomatic. PHYSICAL EXAM: Color is good. He is awake and alert. Chest is clear. Cardiac exam demonstrates atrial fibrillation. The abdomen is soft and nontender. IMPRESSION: 1. Urinary tract infection. 2. Recent cerebrovascular accident. 3. New onset atrial fibrillation. PLAN: 5 mg of Cardizem IV push and Cardizem drip 5 mg an hour and consult Cardiology. MMODL / IJN: [id number] /
[2018-08-01] MEDS ORDERED: cloNIDine 0.2 MG/24HR PATCH TRANSDERM SCH (08:00)
== END 2018-07-27 16:29 | disposition home health service (06) | DRG 872 ==
LOC: EC 18:12 → 3SCARD 19:58
PROVIDERS: ADMIT Family Medicine; ATTEND Family Medicine
DX: A41.59 Other Gram-negative sepsis (principal); N39.0 Urinary tract infection, site not specified; I69.354 Hemiplegia and hemiparesis following cerebral infarction affecting left non-dominant side; E78.5 Hyperlipidemia, unspecified; I25.10 Atherosclerotic heart disease of native coronary artery without angina pectoris; I48.0 Paroxysmal atrial fibrillation; K21.9 Gastro-esophageal reflux disease without esophagitis; Z79.4 Long term (current) use of insulin; Z79.82 Long term (current) use of aspirin; Z80.8 Family history of malignant neoplasm of other organs or systems; Z95.1 Presence of aortocoronary bypass graft; Z80.1 Family history of malignant neoplasm of trachea, bronchus and lung; Z79.899 Other long term (current) drug therapy; Z66 Do not resuscitate; Z93.1 Gastrostomy status; Z87.01 Personal history of pneumonia (recurrent); Z91.81 History of falling; I12.9 Hypertensive chronic kidney disease with stage 1 through stage 4 chronic kidney disease, or unspecified chronic kidney disease; N18.3 Chronic kidney disease, stage 3 (moderate); E11.22 Type 2 diabetes mellitus with diabetic chronic kidney disease; D64.9 Anemia, unspecified
CPT/HCPCS: 36415; 51702; 71046; 80048; 80053; 80202; 81001; 83605; 83735; 84443; 85025; 85610; 85730; 87040; 87077; 87086; 87186; 87324; 93005; 94760; 96365; 96368; 99285